=== PATIENT | female | born 1970 | race Caucasian/White ===

== ENCOUNTER 2020-08-07 15:03 | Outpatient (REF) | payer SELFPAY | END 2020-08-07 15:04 | disposition home or self-care (01) | LOC: HO.LNP 15:03 | PROVIDERS: Visit Provider Otolaryngology | DX: B37.9 Candidiasis, unspecified (principal) | CPT/HCPCS: 87071; 87102; 87205 ==

== ENCOUNTER 2024-01-30 09:18 | Outpatient (AMB) | payer BC, SELFPAY ==
--- NOTE | 2024-01-30 09:19 | AM.OFFWIN_ITS ---
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 sinus congestion Intake Note: Pt is here today c/o ear, throat pain and sinus congestion [id number] Patient Tobacco Use Status: Current everyday Tobacco user Allergies acetaminophen [From Hycomine Compound] Adverse Reaction (Verified 01/30/24 09:29) Rash acyclovir Adverse Reaction (Verified 01/30/24 09:29) blister chlorpheniramine [From Hycomine Compound] Adverse Reaction (Verified 01/30/24 09:29) Rash erythromycin base [From Ilosone] Adverse Reaction (Verified 01/30/24 09:29) rash hydrocodone [From Hycomine Compound] Adverse Reaction (Verified 01/30/24 09:29) Rash Penicillins Adverse Reaction (Verified 01/30/24 09:29) rash phenylephrine [From Hycomine Compound] Adverse Reaction (Verified 01/30/24 09:29) Rash promethazine [From Phenergan] Adverse Reaction (Verified 01/30/24 09:29) rash mysteclin Adverse Reaction (Uncoded 01/30/24 09:28) rash Medication List - Last Reconciled 01/30/24 by MARLYS Aguilar- celecoxib 200 mg PO DAILY HPI HPI Comments History of Present Illness Details Here today with complaints sinus congestion, ear pain, sore throat and mild shortness of breath that started 10 days ago while she was on [place] [employer] cruise. Reports that she had mild symptoms prior that she was using gwto-dkv-fmcijar medications that she bought in [place] to treat. Then her symptoms worsened. She did an at-home COVID test and this was negative. Current active tobacco user. PFSH Social History Patient Tobacco Use Status: Current everyday Tobacco user Review of Systems Const All systems reviewed & are unremarkable except as noted in HPI and below Physical Exam Vital Signs: Last Vital Signs Temp 98.7 F 01/30/24 09:22 Pulse 87 01/30/24 09:22 BP 136/90 H 01/30/24 09:22 Pulse Ox 96 01/30/24 09:22 Oxygen Delivery Method Room Air 01/30/24 09:22 BMI result Body Mass Index 37.9 Const Other: Awake alert NAD Sclera clear conjunctiva injected bilat with watery drainage TM intact, erythematous with purulent effusions bilat nares with mucoid discharge, turbinates erythematous and edematous, + maxillary and frontal sinus tenderness w/ palp MMM, pharynx WNL RRR LS CTAB Results AMB Rapid Strep AMB Rapid Strep Negative Last Edit by Marlene Combs CMA on 01/30/24 09:31 Assessment & Plan Assessment & Plan (1) Acute bacterial sinusitis: Code(s): J01.90 - Acute sinusitis, unspecified; B96.89 - Other specified bacterial agents as the cause of diseases classified elsewhere (2) Flu-like symptoms: Code(s): R68.89 - Other general symptoms and signs (3) Tobacco user: Comment: Smoking Cessation How to Quit There are a lot of ways to quit smoking and many resources to help you. Family members, friends, and co-workers may be supportive or encouraging, but to be successful the desire and commitment to quit must be your own. Most people who have been able to successfully quit smoking made at least one unsuccessful attempt in the past. Try not to view past attempts to quit as failures, but rather as learning experiences. Stopping smoking or using smokeless tobacco is difficult, but anyone can do it. Know the symptoms to expect when you stop. Common symptoms include: ? An intense craving for nicotine ? Anxiety, tension, restlessness, frustration, or impatience ? Difficulty concentrating ? Drowsiness or trouble sleeping, as well as bad dreams and nightmares ? Drowsiness and trouble sleeping ? Headaches ? Increased appetite and weight gain ? Irritability or depression How severe your symptoms are depends on how long you smoked and how many cigarettes you smoked each day. Feel ready to quit? ? First and foremost, set a quit date and quit completely on that day. Before your quit date, you may begin reducing your cigarette use. But remember, there is no safe level of cigarette smoking. ? List the reasons why you want to quit. Include both short- and long-term benefits. ? Identify the times you are most likely to smoke. For example, do you tend to smoke when feeling stressed or down? When out at night with friends? While drinking coffee or alcohol? When bored? While driving? Right after a meal or sex? During a work break? While watching TV or playing cards? When you are with other smokers? ? Let all of your friends, family, and co-workers know of your plan to stop smoking and your quit date. Just being aware that they know what you're going through can be helpful, especially when you are grumpy. ? Get rid of all your cigarettes just before the quit date, and clean out anything that smells like smoke, such as clothes and furniture. Make a plan about what you will do instead of smoking at those times when you are most likely to smoke. ? Be as specific as possible. For example, drink tea instead of coffee -- tea may not trigger the desire for a cigarette. Or, take a walk when you feel stressed. ? Remove ashtrays and cigarettes from the car. Place pretzels or hard candies there instead. Pretend-smoke with a straw. ? Find activities that focus your hands and mind but are not taxing or fattening. Computer games, solitaire, knitting, sewing, and crossword puzzles may help. ? If you normally smoke after eating, find other ways to end a meal. Play a tape or CD, eat a piece of fruit, get up and make a phone call, or take a walk (a good distraction that also stiles calories). Make other changes in your lifestyle. ? Change your daily schedule and habits. Eat at different times or eat several small meals instead of three large ones. Sit in a different chair or even a different room. ? Satisfy your oral habits by eating celery or other low-calorie snack, chewing sugarless gum, or sucking on a cinnamon stick. ? Go to public places and restaurants where smoking is prohibited or restricted. ? Eat regular meals and don't eat too much candy or sweet things. ? Get more exercise. Take walks or ride a bike. Exercise helps relieve the urge to smoke. Set short-term quitting goals and reward yourself when you meet them. ? Every day, put the money you normally spend on cigarettes in a jar. Then buy something pleasurable after a period of time. ? Try not to think about all the days ahead you will need to avoid smoking. Take it one day at a time. ? Even one puff or one cigarette will make your desire for more cigarettes even stronger. However, it is normal to make mistakes. So even if you have one cigarette, you don't need to take the next one. Other tips to help you quit smoking and stick to it: ? Enroll in a smoking cessation program (hospitals, health departments, community centers, and work sites often offer programs). Learn about self-hypnosis or other techniques. ? Ask your health care provider about prescription medications that are safe and appropriate for you. ? Find out about nicotine patches, gum, and sprays. The [place] [employer]'s web site -- www.cancer.org -- is an excellent resource for smokers who are trying to quit, and the [employer] [place] [employer] can help some smokers kick the habit. Above all, don't get discouraged if you aren't able to quit smoking the first ti me. Nicotine addiction is a hard habit to break. Try something different next time. Develop new strategies, and try again. Many people take several attempts to finally kick the habit. Code(s): Z72.0 - Tobacco use Plan Rapid strep negative in the office today. Viral swab obtained. I will treat her with antibiotics given her physical exam today. Reviewed with her her allergies. Reports that she thinks that she is taking cefpodoxime in the past without any ill effects. I have sent his with the pharmacy and educated her about the chance of cross sensitivity given her Augmentin allergy. This is not a life-threatening allergy it was noted as a rash only. Educated her to return to office if she has not feeling better after 48 hours of antibiotic therapy. Or she is feeling worse. She will only be called to her viral swab is positive otherwise the results will not be called to her. Orders: Orders AMB Rapid Strep Screen Today Z13.9 - Encounter for screening, unspecified SARS-CoV2/FLU/RSV Today R68.89 - Other general symptoms and signs Medications: New cefpodoxime must administer with a meal/food 200 mg PO BID 7 days 14 tabs 0RF Patient Instructions: What Is It? Sinuses are air-filled spaces behind the bones of the upper face: between the eyes and behind the forehead, nose and cheeks. The lining of the sinuses are made up of cells with tiny hairs on their surfaces called cilia. Other cells in the lining produce mucus. The mucus traps germs and pollutants and the cilia push the mucus out through narrow sinus openings into the nose. When the sinuses become inflamed or infected, the mucus thickens and clogs the openings to one or more sinuses. Fluid builds up inside the sinuses causing increased pressure. Also bacteria can become trapped, multiply and infect the lining. This is sinusitis. Prevention There are some measures you can take to decrease your risk of developing sinusitis. If you smoke cigarettes, you should quit. The smoke can irritate nasal passageways and increase the likelihood of infection. Nasal allergies can trigger sinus infections, too. By identifying the allergen (the substance causing the allergic reaction) and avoiding it, you can help prevent sinusitis. If you have congestion from a cold or allergies, the following may help to reduce the risk of developing sinusitis: Drink lots of water. This thins nasal secretions and keeps mucous membranes moist. Use steam to soothe nasal passages. Breathe deeply while standing in a hot shower, or inhale the vapor from a basin filled with hot water while holding a towel over your head. Avoid blowing your nose with great force, which can push bacteria into the sinuses. Some doctors advise periodic home nasal washings to clear secretions. This may help prevent, and also treat, sinus infections. Treatment Many sinus infections improve without treatment. However, several medications may speed recovery and reduce the chance that an infection will become chronic. Decongestants - Congestion often triggers sinus infections, and decongestants can open the sinuses and allow them to drain. Several are available: Pseudoephedrine (Sudafed) is available without prescription, alone or in combination with other medications in multi-symptom cold and sinus remedies. Pseudoephedrine can cause insomnia, racing pulse and jitteriness. Do not use if you have high blood pressure or a heart condition. Phenylephrine (such as S udafed PE) is an alternative auou-etb-drlabme oral decongestant. If you take products containing oral phenylephrine, check with the pharmacist to be certain there is no interaction with other medications you take. Oxymetazoline (AfOwen feltcher and others) and phenylephrine (Rishabh-Synephrine and others) are found in nasal sprays. They are effective and may be less likely to cause the side effects seen with pseudoephedrine. However, using a nasal decongestant for more than three days can cause worse symptoms when you stop the medication. This is called the rebound effect. Antihistamines - These medications help to relieve the symptoms of nasal allergies that lead to inflammation and infections. However, some doctors advise against using antihistamines during a sinus infection because they can cause excessive drying and slow the drainage process. Dtav-jcb-atymyft antihistamines include diphenhydramine (Benadryl and others), chlorpheniramine (Chlor-Trimeton and others) and loratadine (Claritin). Fexofenadine (S[place]) and cetrizine (Zyrtec) are available by prescription. Nasal steroids - Anti-inflammatory sprays such as mometasone (Nasonex) and fluticasone (Flonase), both available by prescription, reduce swelling of nasal membranes. Like antihistamines, nasal steroids can be most useful for those who have nasal allergies. Nasal steroids tend to produce less drying than antihistamines. Unlike nasal decongestants, nasal steroids can be used for prolonged periods. Saline nasal sprays - These salt-water sprays are safe to use and can provide some relief by adding moisture to the nasal passages, thinning mucus secretions and helping to flush out any bacteria that may be present. Pain relievers - Acetaminophen (Tylenol), ibuprofen (Advil, Motrin and others) or naproxen (Aleve) can be taken sinus pain. Antibiotics - Your doctor may prescribe an antibiotic if he or she suspects that a bacterial infection is causing your sinusitis. If you start taking an antibiotic, complete the entire course so that the infection is completely killed off. Not all cases of sinusitis require antibiotic treatment: Talk with your doctor about whether an antibiotic is right for you. Keep in mind that antibiotics can cause side effects, such as allergic reactions, rash and diarrhea. In addition, overusing antibiotics eventually leads to the spread of bacteria that no longer can be killed by the most commonly prescribed antibiotics. When To Call A Professional Contact a doctor if you experience facial pain along with a headache and fever, cold symptoms that last longer than seven to 10 days, or persistent green discharge from the nose. If your symptoms don't improve within a week of beginning treatment, call your doctor. Call sooner if symptoms are getting worse. If you have repeated bouts of acute sinusitis, you may have allergies or another treatable cause of sinus congestion. Ask your doctor for advice. Coding Level of Care Code Est Pt Level 4 (87737) Diagnoses Acute bacterial sinusitis J01.90; B96.89 Flu-like symptoms R68.89 Tobacco user Z72.0
[2024-01-30 09:22] VITALS: BP 136/90; PULSE 87; TEMP 37.1; O2SAT 96; BMI 37.9
== END 2024-01-30 10:00 | disposition home or self-care (01) ==
PROVIDERS: Visit Provider Nurse Practitioner Family
DX: J01.90 Acute sinusitis, unspecified (principal); B96.89 Other specified bacterial agents as the cause of diseases classified elsewhere; R68.89 Other general symptoms and signs; J02.9 Acute pharyngitis, unspecified; Z72.0 Tobacco use
CPT/HCPCS: 87880; 99214

== ENCOUNTER 2024-01-30 11:50 | Outpatient (REF) | payer BC, SELFPAY ==
[2024-01-30 13:06] LABS: Influenza A PCR NEGATIVE (Negative); Influenza B PCR NEGATIVE (Negative); Resp Syncy Virus RNA Qual PCR NEGATIVE (Negative); SARS COV2 PCR INHOUSE NEGATIVE (Negative)
== END 2024-01-30 11:51 | disposition home or self-care (01) ==
LOC: HO.LNP 11:50
PROVIDERS: Visit Provider Nurse Practitioner Family
DX: R68.89 Other general symptoms and signs (principal); Z13.9 Encounter for screening, unspecified; J06.9 Acute upper respiratory infection, unspecified
CPT/HCPCS: 0241U

== ENCOUNTER 2024-10-31 08:30 | Outpatient (REF) | payer BC, SELFPAY ==
[2024-10-31 14:34] LABS: Influenza A PCR NEGATIVE (Negative); Influenza B PCR NEGATIVE (Negative); Resp Syncy Virus RNA Qual PCR NEGATIVE (Negative); SARS COV2 PCR INHOUSE NEGATIVE (Negative)
== END 2024-10-31 08:31 | disposition home or self-care (01) ==
LOC: HO.LAB 08:30
PROVIDERS: Nurse Practitioner Family
DX: J02.9 Acute pharyngitis, unspecified (principal); R09.89 Other specified symptoms and signs involving the circulatory and respiratory systems
CPT/HCPCS: 0241U; 87880

== ENCOUNTER 2024-10-31 08:30 | Outpatient (AMB) | payer BC, SELFPAY ==
[2024-10-31 08:39] VITALS: BP 138/80; PULSE 82; TEMP 37; O2SAT 97; BMI 39.8
--- NOTE | 2024-10-31 08:39 | AM.OFFWIN_ITS ---
Intake Vital Signs 10/31/24 08:39 Height 5 ft 5 in Weight 239 lb BMI 39.8 BP 138/80 Blood Pressure Location Lt brachial Position Sitting Pulse 82 Pulse Source Pulse Oximeter Temp 98.6 F Temp Source Oral Pulse Oximetry (%) 97 Oxygen Delivery Method Room Air Intake Visit Reasons: EP-?strep Intake Note: pt is here for possible strep Patient Tobacco Use Status: Current everyday Tobacco user Allergies acetaminophen [From Hycomine Compound] Adverse Reaction (Verified 10/31/24 08:39) Rash acyclovir Adverse Reaction (Verified 10/31/24 08:39) blister chlorpheniramine [From Hycomine Compound] Adverse Reaction (Verified 10/31/24 08:39) Rash erythromycin base [From Ilosone] Adverse Reaction (Verified 10/31/24 08:39) rash hydrocodone [From Hycomine Compound] Adverse Reaction (Verified 10/31/24 08:39) Rash Penicillins Adverse Reaction (Verified 10/31/24 08:39) rash phenylephrine [From Hycomine Compound] Adverse Reaction (Verified 10/31/24 08:39) Rash promethazine [From Phenergan] Adverse Reaction (Verified 10/31/24 08:39) rash mysteclin Adverse Reaction (Uncoded 01/30/24 09:28) rash Do you need a note to return to daycare/school/sports/work: No HPI HPI Comments History of Present Illness Details 53 y/o female patient who presents to [facility] in clinic with c/o Pharyngitis. PFSH Social History Patient Tobacco Use Status: Current everyday Tobacco user Physical Exam Vital Signs: Last Vital Signs Temp 98.6 F 10/31/24 08:39 Pulse 82 10/31/24 08:39 BP 138/80 10/31/24 08:39 Pulse Ox 97 10/31/24 08:39 Oxygen Delivery Method Room Air 10/31/24 08:39 BMI result Body Mass Index 39.8 Const General: cooperative and no acute distress Orientation/consciousness: patient oriented x3 HEENT Head: Yes normocephalic Ears: external ears normal and TM abnormal bulging and with fluid behind the TM bilateral; not perforated and not retracted General nose exam: Abnormal mucous membranes and turbinates present erythematous Face and sinus: Yes sinuses nontender Mouth: moist mucous membranes Throat: Yes postnasal drainage Resp Effort & Inspection: normal respiratory effort and able to speak in complete sentences Auscultation: clear to auscultation bilaterally, no crackles, no rales, no rhonchi and no wheezes Cardio Heart sounds: S1 normal heart sound present and S2 normal heart sound present Neuro General: patient oriented x3 Results AMB Rapid Strep AMB Rapid Strep Negative Last Edit by Ponce Patterson CMA on 10/31/24 08 :52 Results Reviewed Results Reviewed: Laboratory Last Values Strep Scn Rapid Clinic Negative 10/31/24 08:52 Assessment & Plan Assessment & Plan (1) Acute pharyngitis: Code(s): J02.9 - Acute pharyngitis, unspecified Qualifiers: Pharyngitis/tonsillitis etiology: unspecified etiology Qualified Code(s): J02.9 - Acute pharyngitis, unspecified Plan: Rapid Strep negative. Ordered SARs OTC cold remedies. Plan Rapid Strep negative. Ordered SARs Orders: Orders SARS-CoV2/FLU/RSV Today R09.89 - Other specified symptoms and signs involving the circulatory and respiratory systems AMB Rapid Strep Screen Today Z13.9 - Encounter for screening, unspecified Coding Level of Care Code Est Pt Level 3 (08827) Diagnoses Acute pharyngitis, unspecified etiology J02.9 Pharyngitis/tonsillitis etiology: unspecified etiology Time Spent (min) 15
--- OUTSIDE RECORDS SUMMARY | 2024-10-31 12:44 | XMS_ITS | Clinical Summary ---
Author Organization [facility] Address [address] [place] [id number] Phone [email or web address] Care Team Providers Care Invasive Physician Name Role Phone Unavailable Primary Care Provider Unavailabl e Medications No known medications Active Problems No known active problems Social History Tobacco Use Types Packs/Day Years Used Date Smoking Tobacco: Former Cigarettes Q uit: 06/17/2021 Smokeless Tobacco: Never Intimate Partner Violence Answer Date R ecorded Insults You Not on file 01/17/2021 Threatens You Not on file 01/17/2021 Screams at You Not on file 01/17/2021 Physically Hurt Not on file 01/17/2021 Intimate Partner Violence Score Not on file 01/17/2021 Stress Answer Date Recorded Stress in your Life Not on file 08/09/2024 Dealing with Stress 3 08/09/2024 Comments Unknown Sex and Gender Information Value Date Recorded Sex Assigned at Female 07/01/2021 1:48 PM CDT 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 Gender Identity Female 07/01/2021 1:48 PM CDT Sexual Orientation Not on file Plan of Treatment Health Maintenance Due Date Last Done Comments Dental Cleaning/Exam 1971 HIV Screening 1971 Hepatitis C Screening 1971 Cervical Cancer Screening 1987 Hep B Infection Screening - Triple Screen 12/30/1989 Hepatitis B Immunization (1 of 3 - 19+ 3-dose series) 12/30/1990 Colorectal Cancer Screening 12/30/2001 Annual Preventive Exam 10/11/2015 10/11/2014, 2007 Tetanus Diphtheria and Pertussis Immunization (2 - Td or Tdap) 05/18/2017 05/18/2007 Zoster Immunization (1 of 2) 12/30/2021 Breast Cancer Screening 05/07/2023 05/07/2021 Covid-19 Immunization ( season) 2024 12/28/2020 Influenza Immunization (#1) 06/05/202407/05, 07/01/2015, 07/16/2014, Additional history exists HIB Immunization Aged Out No longer e ligible based on patient's age to complete this topic HPV Immunization Aged Out No longer e ligible based on patient's age to complete this topic Hepatitis A Immunization Aged Out No longer eligible based on patient's age to complete this topic Pneumococcal: Ped (0 to 5 Yrs) and At-Risk Member (6 to 64 Yrs) Aged Out No longer eligible based on patient's age to complete this topic Polio Immunization Aged Out No longer eligible based on patient's age to complete this topic
--- OUTSIDE RECORDS SUMMARY | 2024-10-31 12:44 | XMS_ITS | Clinical Summary ---
Author Organization [facility] Address [address] [place] [address] Phone Care Team Providers Care Computer Support Analyst Name Role Phone Jimi Newell MD Primary Care Provider [phone] Allergies Active Allergy Reactions Criticality Noted Date Comments Acyclovir 06/11/2012 Other Reaction(s): OTHER Iv caused blisters on hand When switched to other hand, pt was fine Ampicillin 01/15/2006 Other Reaction(s): Rash/Dermatitis Codeine 01/15/2006 Erythromycin Estolate 01/15/2006 Promethazine Hcl 01/15/2006 Medications Medication Sig Dispensed Refills Start Date End Date Status acetaminophen (TYLENOL) 500 mg tablet 1 Tab 2 times daily. 01/29/2012 Acti ve CELECOXIB ORAL Take by mouth daily. Active ketoconazole (NIZORAL) 2 % cream Apply to area bid 08/12/2021 Active levonorgestreL (MIRENA) 21 mcg/24 hr (8 yrs) 52 mg IUD 1 Each by Intrauterine route Once. 01/21/2022 12/26/2026 Active omeprazole (PriLOSEC) [address] capsule Take 1 Capsule by mouth daily Active aspirin-acetaminop hen-caffeine (EXCEDRIN MIGRAINE) 250-250-65 mg per tablet Take 1 Tablet by mouth every 6 hours as needed for Pain Active Active Problems Problem Noted Date Diagnosed Date Abnormal uterine bleeding (AUB) 01/19/2022 Overview (07/05/2024): Last Assessment & Plan: She will return for Mirena IUD [id number] 04/12/2013 Osteoarthritis of hip 01/29/2012 Overview (07/05/2024): L>R Pilonidal cyst 03/28/2008 Allergic rhinitis 02/06/2006 Encounters Date Type Department Care Team Description 09/08/2024 Telephone Gastroenterology - [place] [address] [address] Ramiro Nunez DO special procedure 08/25/2024 2:30 PM EST Nutrition Internal Medicine - [place] 175 [facility] [address] [place] [address] Lorena Noble, CARI Obesity (BMI 30-39.9) (Primary Dx) 08/15/2024 Telephone Adult Medicine [address] [phone] Jimi Newell MD from Last 3 Months Immunizations Name Administration Dates Next Due H1N1 Inj Preservative Free 09/15/2009 Influenza Quadravalent, MDCK , 0.5ml, with preservative (Flucelvax) 6mo and older 07/25/2018,07/26/2017 Influenza trivalent, with preservative (Fluzone; Afluria) 6mo and older 07/20/2016,07/01/2015,07/16/2014,2012,07/07/2012,07/18/2011,07/20/2010,1 ,06/27/2008 Moderna (age 6mo & older) Bi valent, COVID-19, 0.5 mL or 0.25 mL dosage 07/03/2023 Moderna SARS-CoV-2 COVID-19, mRNA, LNP-S, preservative free 06/26/2022,08/07/2021,01/25/2021,2020 Tdap Tetanus diptheria acell ular pertussis (Boostrix; Adacel) 7yo and older 05/12/2024,05/18/2007 Surgical History Surgery Date Site/Laterality Comments KNEE SURGERY PROCEDURE: HISTORICAL KNEE SURGERY; COMMENT: left knee x3 -arthroscopic and tendon shortening WISDOM TOOTH EXTRACTION PROCEDURE: HISTORICAL WISDOM TEETH EXTRACTION; COMMENT: 18 years HIP ARTHROPLASTY Left PROCEDURE: HISTORICAL HIP REPLACEMENT Medical History Medical History Date Comments Allergic rhinitis, cause unspecified 02/06/2006 DX:Allergic rhinitis, cause unspecified Bursitis of hip DX:Bursitis of h ip; COMMENT: bilateral x years Tendon laceration DX:Tendon lace ration; COMMENT: R 2nd - required surgeries [id number] 04/12/2013 DX:Pobhkux-ss-ir o Family History Medical History Relation Name Comments Breast cancer Aunt dar callahan in 80s Arthritis Maternal Grandmother Arthritis Mother fibromyalgia Kidney cancer Mother Colon cancer Neg Hx Ovarian cancer Neg Hx Pancreatic cancer Neg Hx Relation Name Status Comments Aunt dar callahan in 80s Alive Daughter Alive A&W Father Alive estranged Maternal Grandfather AMI; CA D Maternal Grandmother AMI; CA D; arthritis Mother Alive HTN, thyroid di sease, arthritis Paternal Grandfather estrang ed Paternal Grandmother estrang ed Social History Tobacco Use Types Packs/Day Years Used Date Smoking Tobacco: Some Days Cigarettes Last attempted to quit: 06/05/2021 Smokeless Tobacco: Never Alcohol Use Standard Drinks/Week Comments Yes 0 (1 standard drink = 0.6 oz pur e alcohol) Sex and Gender Information Value Date Recorded Sex Assigned at Not on file Gender Identity Not on file Sexual Orientation Not on file Job Start Date Occupation Industry Not on file Not on file Not on file Obstetrics History Last Filed Vital Signs Vital Sign Reading Time Taken Comments Blood Pressure 110/78 05/12/2024 8:42 AM EDT Pulse 99 05/12/2024 8:42 AM EDT Temperature - - Respiratory Rate - - Oxygen Saturation - - Inhaled Oxygen Concentration - - Weight 103 kg (226 lb) 08/25/2024 2:25 PM EST Height 165.1 cm (5' 5 ) 08/25/2024 2:25 PM EST Body Mass Index 37.61 08/25/2024 2:25 PM EST Plan of Treatment Upcoming Encounters Date Type Department Care Team (Late st Contact Info) Description 11/18/2024 8:30 AM EST Office Visit Adult Medicine [address] [phone] Jimi Newell MD [address] [place] [address] 12/23/2024 4:00 PM EDT Appointment [facility] Endoscopy [address] [place] [phone] Ramiro Nunez DO 175 [facility] 200 [place] [address] 02/23/2025 2:30 PM EDT Office Visit Bariatric Surgery - [place] [address] [phone] Nikky Duarte MD [address] [address] 05/16/2025 8:30 AM EDT Office Visit Adult Medicine South - [address] [phone] Munira Moyer PA [address] [place] [address] 06/01/2025 7:40 AM EDT Appointment Radiology Department - [address] [phone] Health Maintenance Due Date Last Done Comments Pneumococcal Vaccine: Pediatrics (0 to 5 Years) and At-Risk Patients (6 to 64 Years) (1 of 2 - PCV) 12/30/1977 Hepatitis B Vaccines (1 of 3 - 19+ 3-dose series) 12/30/1990 Colorectal Cancer Screening: Colonoscopy 09/13/2022 Depression Screening 09/13/2022 HIV Screening 09/13/2022 Hepatitis C Screening 09/13/2022 Social Influencers of Health Screening 09/13/2022 Zoster Vaccines (2 of 2) 09/13/2024 07/19/2024 Breast Cancer Screening 05/20/2026 05/20/20 24, 05/20/2024, 05/15/2023, Additional history exists Cervical Cancer Screening: HPV 01/13/2027 01/13/2022 Cholesterol Screening (Lipid Panel) 05/12/2029 05/12/2024, 05/12/2024 DTaP,Tdap,and Td Vaccines (4 - Td or Tdap) 05/12/2034 05/12/2024, 04/19/2022, 05/18/2007 COVID-19 Vaccine Completed 07/19/2024, , 06/26/2022, Additional history exists Influenza Vaccine Completed 07/19/2024, , 06/26/2022, Additional history exists HIB Vaccines Aged Out No longer eligi ble based on patient's age to complete this topic HPV Vaccines Aged Out No longer eligi ble based on patient's age to complete this topic Hepatitis A Vaccines Aged Out No long er eligible based on patient's age to complete this topic IPV Vaccines Aged Out No longer eligi ble based on patient's age to complete this topic MMR Vaccines Aged Out No longer eligi ble based on patient's age to complete this topic Meningococcal ACWY Vaccine Aged Out N o longer eligible based on patient's age to complete this topic RSV Immunization Patients Under 20 months Aged Out No longer eligible based on patient's age to complete this topic Varicella Vaccines Aged Out No longer eligible based on patient's age to complete this topic Procedures Procedure Name Priority Date/Time Associated Diagnosis Comments SCREENING MAMMOGRAPHY BI 2-VIEW BREAST INC CAD Routine 05/20/2024 7:40 AM EDT Encounter for screening mammogram for malignant neoplasm of breast LIPID PANEL Routine 05/12/2024 HM HPV Routine 01/13/2022 from Last 3 Months or Most Recently Relevant to Health Maintenance Results * SCREENING MAMMOGRAPHY BI 2-VIEW BREAST INC CAD (05/20/2024 7:40 AM EDT) Anatomical Region Laterality Modality Radiographic Heike ging 05/15/2023 7:32 AM EDT Narrative 05/20/2024 5:24 PM EDT This is a summary report. The complete report is available in the patient's medical record. If you cannot access the medical record, please contact the sending organization for a detailed fax or copy. Exam: Screening mammogram Findings: Digital bilateral full-field screening mammography is performed with tomosynthesis and interpreted with the aid of computer-aided detection. ??Comparison is made with 05/15/2023 and as far back as 04/30/2020. Breast parenchyma is composed of scattered fibroglandular densities. ??No new suspicious mass, architectural distortion, or suspicious calcifications. Impression: No mammographic evidence of malignancy. BI-RADS 1 - negative Procedure Note Izzy Weber MD - 08/29/2024 This is a summary report. The complete report is available in thepatient's medical record. If you cannot access the medical record, pleasecontact the sending organization for a detailed fax or copy. Exam: Screening mammogram Findings: Digital bilateral full-field screening mammography is performedwith tomosynthesis and interpreted with the aid of computer-aideddetection. Comparison is made with 05/15/2023 and as far back as04/30/2020. Breast parenchyma is composed of scattered fibroglandular densities. Nonew suspicious mass, architectural distortion, or suspiciouscalcifications. Impression: No mammographic evidence of malignancy. BI-RADS 1 - negative Jimi Newell MD IMG XR PROCEDURES * (ABNORMAL) Lipid panel (05/12/2024) LDL/HDL Ratio 3 0 - 4 Triglycerides 120 0 - 150 mg/dL Cholesterol 196 0 - 200 mg/dL HDL 57 40 mg/dL LDL Cholesterol 115(A) 0 - 100 mg/dL Blood Venous blood specimen / Unknown Historical Provider LAB BLOOD ORDERAB LES * Cervical Cancer Screening: HPV (01/13/2022) Pathologist [facility] Cervical Cancer Screening: HPV negative, abstracted Historical Provider HEALTH MAINTENANC E from Last 3 Months or Most Recently Relevant to Health Maintenance Care Teams Computer Support Analyst Relationship Specialty Start Date End Date Jimi Newell MD [address] [place] [address] [place] [id number] PCP - General Internal Medicine 03/26/21
--- OUTSIDE RECORDS SUMMARY | 2024-10-31 12:44 | XMS_ITS | Patient Health Record ---
[facility] Address [address] [place] [address] Care Team Providers Care Propagator Laborer Name Role Phone Reece PIZANO, Nate Primary Care Provider Diane Amor Unavailable [phone] Allergies Allergen (clinical drug ingredient) Drug/Non Drug Allergy documented on EMR Reaction Allergy Type Onset Date Status ibuprofen Advil stomach pain Drug Allergy Acti ve Aleve stomach pain Drug Allergy Acti ve Motrin stomach pain Drug Allergy Acti ve promethazine Phenergan rash/blisters Drug Allergy Active acyclovir Acyclovir rash/blisters Drug Allergy Act pk amphotericin B Amphotericin B rash/blisters Drug Allergy Active erythromycin Erythromycin rash/blisters Drug Allergy Active hydrocodone Hydrocodone rash/blisters Drug Allergy Active Penicillin rash Drug Allergy Active Reason For Referral No Information Medications Medication SIG (Take, Route, Fr equency, Duration) Notes Start Date End Date Status Celecoxib 200 MG 1 capsule with food Orally Once a day for 30 day(s) Active Immunizations Vaccine Route Administration Date Status Comme nts COVID-19 Moderna Vaccine Unknown 12/28/2020 Administered Second Dose: 01/25/2021 Social History Tobacco Use: Social History Observation Description Date Details (start date - stop date) Current Smoker NA - NA Tobacco Use/Smoking Question Answer Notes Are you a: current smoker How often do you smoke cigarettes? some days, bu t not every day How many cigarettes a day do you smoke? 5 or les s Additional Findings: Tobacco Non-User Current no n-smoker Alcohol Screen Question Answer Notes Did you have a drink contain ing alcohol in the past year? Yes How often did you have a dri nk containing alcohol in the past year? 2 to 3 times a week (3 points) Points 3 Interpretation Positive Tobacco use other than smoking: Question Answer Notes Are you an other tobacco user? No Problems Problem Type SNOMED Code ICD Code Onset Dates Problem Status W/U Status Risk Notes Problem [id number] Hallux valgus (acquired), right foot (M20.11) Active confirmed Plan Of Treatment Pending Test Test Name Order Date ,[id number] TENDON SHEATH/LIGAMENT 0 02/12/2021,[id number] TENDON SHEATH/LIGAMENT 0 06/12/2021 Insurance Providers Payer Name Payer Address Payer Phone Subscriber Number Group Number Insured Name Patient Relationship to Insured Coverage Start Date Coverage End Date [facility] [address] [place] [address] [id number] Kusum Mckeon Self - patient is the insured Medical (General) History Medical History History ICD Code Arthritis Back,Hip,and Knee pain Broken bones Chicken pox Joint/ Bone implants/screws Surgical History Surgery Date(Month/Year) Hip Replacement 2011 Knee surgery 1986,1987,1988 [place] teeth extraction 1986 Severed tendon repair-right index finger 2008 Anal Fistula Surgery 2014 [place] 2011
== END 2024-10-31 09:30 | disposition home or self-care (01) ==
PROVIDERS: Visit Provider Nurse Practitioner Family
DX: J02.9 Acute pharyngitis, unspecified (principal); Z13.9 Encounter for screening, unspecified

== ENCOUNTER 2024-11-04 08:17 | Outpatient (AMB) | payer BC, SELFPAY ==
--- OUTSIDE RECORDS SUMMARY | 2024-11-04 08:22 | XMS_ITS | Clinical Summary ---
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
--- OUTSIDE RECORDS SUMMARY | 2024-11-04 08:23 | XMS_ITS | Clinical Summary ---
Author Organization [facility] Address [address] [place] [address] Phone Care Team Providers Care Manager Clinical Name Role Phone Jimi Newell MD Primary Care Provider [phone] Allergies Active Allergy Reactions Criticality Noted Date [...] Plan: She will return for Mirena IUD Bmjisrp-vo-deg 04/12/2013 Osteoarthritis of hip 01/29/2012 Overview (07/05/2024): L>R Pilonidal cyst 03/28/2008 Allergic rhinitis 02/06/2006 Encounters Date Type Department Care Team Description 09/08/2024 Telephone Gastroenterology - [place] [address] [phone] Ramiro Nunez DO special procedure 08/25/2024 2:30 PM EST Nutrition Internal Medicine - [place] 175 [facility] [address] [place] [address] Lorena Noble, CARI Obesity (BMI 30-39.9) (Primary Dx) 08/15/2024 Telephone Adult Medicine [address] [phone] Jimi Newell MD from Last 3 Months [...] ration; COMMENT: R 2nd - required surgeries Uoobpvk-aq-ofv 04/12/2013 DX:Umgxvhk-tk-nb o Family History Medical History Relation Name [...] 8:30 AM EST Office Visit Adult Medicine [address] [phone] Jimi Newell MD [address] [place] [address] 12/23/2024 4:00 PM EDT Appointment [facility] Endoscopy [address] [place] [phone] Ramiro Nunez DO 175 [facility] [address] [place] [address] 02/23/2025 2:30 PM EDT Office Visit Bariatric Surgery - [place] [address] [phone] Nikyk Duarte MD [address] [address] 05/16/2025 8:30 AM EDT Office Visit Adult Medicine South - [address] [phone] Munira Moyer PA [address] [place] [address] 06/01/2025 7:40 AM EDT Appointment Radiology Department - [address] [phone] Health Maintenance Due Date Last Done Comments [...] * Cervical Cancer Screening: HPV (01/13/2022) Pathologist [facility] Cervical Cancer Screening: HPV negative, abstracted Historical Provider HEALTH MAINTENANC E from Last 3 Months or Most Recently Relevant to Health Maintenance Care Teams Manager Clinical Relationship Specialty Start Date End Date Jimi Newell MD [address] [place] [address] [place] [id number] PCP - General Internal Medicine 03/26/21
[2024-11-04 08:49] VITALS: BP 130/82; PULSE 92; TEMP 36.8; O2SAT 97; BMI 39.8
--- NOTE | 2024-11-04 08:49 | AM.OFFWIN_ITS ---
Intake Vital Signs 11/04/24 08:49 Height 5 ft 5 in Weight 239 lb BMI 39.8 BP 130/82 Blood Pressure Location Lt brachial Position Sitting Pulse 92 Pulse Source Pulse Oximeter Temp 98.2 F Temp Source Oral Pulse Oximetry (%) 97 Intake Visit Reasons: EP severe sinus congestion Intake Note: pt is here for severe sinus congestion Patient Tobacco Use Status: Current everyday Tobacco user Allergies acetaminophen [From Hycomine Compound] Adverse Reaction (Verified 11/04/24 08:49) Rash acyclovir Adverse Reaction (Verified 11/04/24 08:49) blister chlorpheniramine [From Hycomine Compound] Adverse Reaction (Verified 11/04/24 08:49) Rash erythromycin base [From Ilosone] Adverse Reaction (Verified 11/04/24 08:49) rash hydrocodone [From Hycomine Compound] Adverse Reaction (Verified 11/04/24 08:49) Rash Penicillins Adverse Reaction (Verified 11/04/24 08:49) rash phenylephrine [From Hycomine Compound] Adverse Reaction (Verified 11/04/24 08:49) Rash promethazine [From Phenergan] Adverse Reaction (Verified 11/04/24 08:49) rash mysteclin Adverse Reaction (Uncoded 01/30/24 09:28) rash Do you need a note to return to daycare/school/sports/work: Yes HPI HPI Comments History of Present Illness Details 53 y/o female patient who presents to [facility] clinic with worsening symptoms of Sinus and chest congestion, cough and body aches. She was seen here at the walk in clinic 10/31 for similar symptoms. SARs was negative. [facility] Medical History (Updated 11/04/24 @ 09:12 by Margarita Howard NP) Sinusitis nasal Social History Patient Tobacco Use Status: Current everyday Tobacco user Review of Systems Const All systems reviewed & are unremarkable except as noted in HPI and below Physical Exam Vital Signs: Last Vital Signs Temp 98.2 F 11/04/24 08:49 Pulse 92 11/04/24 08:49 BP 130/82 11/04/24 08:49 Pulse Ox 97 11/04/24 08:49 BMI result Body Mass Index 39.8 Const General: cooperative and no acute distress Nutritional Appearance: obese Orientation/consciousness: patient oriented x3 HEENT Head: Yes normocephalic Ears: external ears normal and TM abnormal bulging bilateral and with fluid behind the TM bilateral General nose exam: Abnormal mucous membranes and turbinates present boggy and Nasal discharge present Face and sinus: Yes sinus tenderness Mouth: moist mucous membranes Resp Effort & Inspection: normal respiratory effort and able to speak in complete sentences Auscultation: clear to auscultation bilaterally, no crackles, no rales, no rhonchi and wheezes expiratory wheezes Cardio Heart sounds: S1 normal heart sound present and S2 normal heart sound present Neuro General: patient oriented x3 Assessment & Plan Assessment & Plan (1) Sinusitis nasal: Code(s): J32.9 - Chronic sinusitis, unspecified Qualifiers: Chronicity: acute Recurrence: not specified as recurrent Sinusitis location: maxillary Qualified Code(s): J01.00 - Acute maxillary sinusitis, unspecified Plan: Ordered Doxcy Abx Pt has multiple Allergies to Abx. Medications: New dextromethorphan polistirex ER (Delsym 12 hour) 10 mL PO Q12H 89 mL 0RF cough J06.9 - Acute upper respiratory infection, unspecified doxycycline hyclate 100 mg PO BID 10 days 20 caps 0RF J01.00 - Acute maxillary sinusitis, unspecified Coding Level of Care Code Est Pt Level 3 (69963) Diagnoses Acute maxillary sinusitis, recurrence not specified J01.00 Chronicity: acute Recurrence: not specified as recurrent Sinusitis location: maxillary Time Spent (min) 15
== END 2024-11-04 09:33 | disposition home or self-care (01) ==
PROVIDERS: Visit Provider Nurse Practitioner Family
DX: J01.00 Acute maxillary sinusitis, unspecified (principal)

== ENCOUNTER 2025-03-22 12:19 | Outpatient (AMB) | payer BC, SELFPAY ==
[2025-03-22 12:28] VITALS: BP 110/74; PULSE 86; O2SAT 99; BMI 39.1
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
--- OUTSIDE RECORDS SUMMARY | 2025-03-22 14:11 | XMS_ITS | Clinical Summary ---
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 Gender Identity Female 07/01/2021 1:48 PM CDT Sexual Orientation Not on file Plan of Treatment Health Maintenance Due Date Last Done Comments Dental Cleaning/Exam 1971 HIV Screening 1971 Hepatitis C Screening 1971 Cervical Cancer Screening 1987 Annual Preventive Exam 12/30/1989 Hep B Infection Screening - Triple Screen 12/30/1989 Hepatitis B Immunization (1 of 3 - 19+ 3-dose series) 12/30/1990 Colorectal Cancer Screening 12/30/2001 Tetanus Diphtheria and Pertussis Immunization (2 - Td or Tdap) 05/18/2017 05/18/2007 Zoster Immunization (1 of 2) 12/30/2021 Breast Cancer Screening 05/07/2023 05/07/2021 Covid-19 Immunization ( season) 2024 12/28/2020 Influenza Immunization (Season Ended) 2025 07/20/2016, 07/01/2015, 07/16/2014, Additional history exists HIB Immunization [...]
== END 2025-03-22 13:16 | disposition home or self-care (01) ==
LOC: HO.HMCC 12:20
PROVIDERS: Visit Provider Nurse Practitioner Family
DX: I10 Essential (primary) hypertension (principal); Z72.0 Tobacco use; Z97.5 Presence of (intrauterine) contraceptive device; L98.9 Disorder of the skin and subcutaneous tissue, unspecified; M19.90 Unspecified osteoarthritis, unspecified site

== ENCOUNTER → 2025-03-22 12:19 | Outpatient (BNVA) | payer BC, SELFPAY | PROVIDERS: Visit Provider Nurse Practitioner Family | DX: I10 Essential (primary) hypertension (principal); L98.9 Disorder of the skin and subcutaneous tissue, unspecified; M19.90 Unspecified osteoarthritis, unspecified site; Z97.5 Presence of (intrauterine) contraceptive device; Z87.891 Personal history of nicotine dependence | CPT/HCPCS: 96127 ==

== ENCOUNTER 2025-05-26 10:54 | Outpatient (AMB) | payer BC, SELFPAY ==
--- NOTE | 2025-05-26 07:52 | A.OFFVIS_ITS ---
Intake Visit Reasons: Former Smoker Allergies acetaminophen (From Hycomine Compound) Adverse Reaction (Verified 03/22/25 12:3 0) Rash acyclovir Adverse Reaction (Verified 03/22/25 12:30) blister chlorpheniramine (From Hycomine Compound) Adverse Reaction (Verified 03/22/25 12:30) Rash erythromycin base (From Ilosone) Adverse Reaction (Verified 03/22/25 12:30) rash hydrocodone (From Hycomine Compound) Adverse Reaction (Verified 03/22/25 12:30) Rash Penicillins Adverse Reaction (Verified 03/22/25 12:30) rash phenylephrine (From Hycomine Compound) Adverse Reaction (Verified 03/22/25 12:30) Rash promethazine (From Phenergan) Adverse Reaction (Verified 03/22/25 12:30) rash mysteclin Adverse Reaction (Uncoded 01/30/24 09:28) rash HPI HPI Former Smoker: Details: Initial visit for this 54yo former smoker with a 25PYH. Patient started smoking at age 16 for 37 years at 1-1ppd. She quit 08/2024 . Denies marijuana use. 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 Denies known family history of lung cancer. Denies personal history of cancers. Denies chest CT in last year. . Denies recent travel outside the [place]. Denies recent respiratory illness or recent hospitalization for respiratory issues. History of testing positive for COVID. Admits receiving COVID Vaccine. . Denies fever, chills, new/worsening cough, hemoptysis, hoarseness or dysphagia. Denies significant chest pain, significant dyspnea or unintentional weight loss. Patient Lung Cancer Screening Questionnaire reviewed with patient by provider. . Shared Decision Making Completed. Patient meets criteria. Discussed in detail with patient, the risk vs benefit of LDCT screening. Patient consents to proceed with scan. Discussed and encouraged continued smoking cessation. [facility] Medical History (Updated 05/26/25 @ 11:11 by Priscilla Jorge PA-C) HTN (hypertension) CPAP (continuous positive airway pressure) dependence Personal history of nicotine dependence Presence of Mirena IUD Hemorrhoids Fistula, anal Meningitis Tooth abscess Pilonidal cyst Surgical History (Updated 04/10/25 @ 11:18 by Priscilla Jorge PA-C) History of left hip replacement Family History Mother High blood pressure Hyperthyroidism Fibromyalgia Kidney cancer, primary, with metastasis from kidney to other site Father No problems noted. 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 - Patient meets criteria for LDCT for lung cancer screening purposes and is asymptomatic. - Smoking cessation counseling offered. Patients can always call [phone]. - Will arrange for a LDCT scan of the chest for screening purposes at [facility]. - Risks, benefits, and alternatives were discussed in detail and the patient agrees to proceed. - Risks discussed include but are not limited to: radiation exposure, anxiety during testing and while awaiting results, false negatives, false positives and possibility of additional intervention such as further imaging or surgical procedures for benign disease. - Benefits are obviously detection of lung cancer at an early stage which can lead to improved outcomes. - Discussed the importance of screening program compliance with adherence to yearly LDCT scan as scheduled - or sooner interval scans for personalized screening regimen. - Discussed follow up plan. Our office will send a letter discussing results and if needed set up phone call and office visit based on CT findings. - Patient educated on results categorization and the management decisions for suspicious findings potentially found on the screening LDCT scan. Any patient with a Lung RADS score of 3 or 4 will be reviewed by a multidisciplinary team at [facility] to form a plan of action in regards to scan findings. - If further work up is warranted for a suspicious lung finding this will be followed by the Lung Cancer Screening program in conjunction with the Thoracic Surgery Department at [facility]. - A copy of the office note and LDCT will be sent to the patient's PCP - as well as documentation on any associated further plans of care. - Incidental findings on LDCT are the PCP's responsibility. These findings are indicated with an S finding on the LDCT Assessment. A note discussing the findings will be sent to the PCP who is then responsible for further management. - All questions answered.? Coding Level of Care Code Lung Cancer Screening G0296 Diagnoses Personal history of nicotine dependence Z87.891
--- OUTSIDE RECORDS SUMMARY | 2025-05-26 10:59 | XMS_ITS ---
Author Name [facility] Organization Unknown Care Team Organization Name Specialty Phone Email Start Date End [facility] te [facility] TARAH LATIF Primary Care 08/12/2022 4
--- OUTSIDE RECORDS SUMMARY | 2025-05-26 10:59 | XMS_ITS | Clinical Summary ---
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 Gender Identity Female 07/01/2021 1:48 PM CDT Sexual Orientation Not on file Plan of Treatment Health Maintenance Due Date Last Done Comments CT Colonography 1971 Cervical Cancer Screening Combo 1971 Colonoscopy 1971 Colorectal Cancer Screening Combo 1971 DNA Cologuard 1971 Dental Cleaning/Exam 1971 FIT or FOBT Test 1971 HIV Screening 1971 HPV / Cotest 1971 Hepatitis C Screening 1971 Pap Testing 1971 Sigmoidoscopy 1971 Annual Preventive Exam 12/30/1989 Hep B Infection Screening - Triple Screen 12/30/1989 Hepatitis B Immunization (1 of 3 - 19+ 3-dose series) 12/30/1990 Tetanus Diphtheria and Pertussis Immunization (2 - Td or Tdap) 05/18/2017 05/18/2007 Zoster Immunization (1 of 2) 12/30/2021 Breast Cancer Screening 05/07/2023 05/07/2021 Covid-19 Immunization (2 - season) 2024 12/28/2020 Influenza Immunization (#1) 06/05/202507/05, 07/01/2015, 07/16/2014, Additional history exists HIB Immunization [...]
--- OUTSIDE RECORDS SUMMARY | 2025-05-26 10:59 | XMS_ITS | Clinical Summary ---
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 Electrostatic Paint Operator Name Role Phone Jimi Newell MD Primary Care Provider [phone] Allergies Active Allergy Reactions Criticality Noted Date Comments Acyclovir Rash,Wound Medium 06/11/2012 Other Reaction(s): OTHER Iv caused blisters on hand When switched to other hand, pt was fine Amphotericin B Rash Low 12/15/2024 Other Reaction(s): rash/blisters Ampicillin Rash Medium 01/15/2006 Other Reaction(s): Rash/Dermatitis Erythromycin Estolate Rash Medium 01/15/2006 Ibuprofen GI intolerance Low 12/15/2024 Other Reaction(s): stomach pain Naproxen Sodium GI intolerance Low 12/15/2024 Other Reaction(s): stomach pain Promethazine Hcl 01/15/2006 Medications acetaminophen (TYLENOL) 500 mg tablet 1 Tab 2 times daily. 2 Active CELECOXIB ORAL Take by mouth daily. Active ketoconazole (NIZORAL) 2 % cream Apply to area bid 1 Active levonorgestreL (MIRENA) 21 mcg/24 hr (8 yrs) 52 mg IUD 1 Each by Intrauterine route Once. 2 027 Active aspirin-acetam inophen-caffei ne (EXCEDRIN MIGRAINE) 250-250-65 mg per tablet Take 1 Tablet by mouth every 6 hours as needed for Pain Active methylPREDNISo lone (MEDROL DOSPAK) 4 mg tablet TAKE 6 TABLETS ON DAY 1 DIRECTED ON PACKAGE AND DECREASE BY 1 TAB EACH DAY FOR A TOTAL OF 6 DAYS 5 Active omeprazole (PriLOSEC) [address] capsule Take 1 capsule (40 mg total) by mouth 1 (one) time each day. Do not crush or chew. 30 each 11 5 026 Active polyethylene glycol (Golytely) 236-22.74-6.74 -5.86 gram solution Take 4L by mouth once for one dose. May substitue any PEG. Starting at 6PM the night before your procedure drink 1 8oz glasses at your own pace until you complete half of the gallon. Finish 2nd half of the gallon 5 hours before your procedure. 4000 mL 5 Active bisacodyL (DULCOLAX) 5 mg EC tablet Take 2 tablets by mouth right before beginning bowel prep. See instructions provided by the office 2 tablet 5 Active amLODIPine (NORVASC) 5 mg tablet Take 1 tablet (5 mg total) by mouth 1 (one) time each day. 90 tablet 1 5 Active tirzepatide, weight loss, (Zepbound) 7.5 mg/0.5 mL injection Inject 0.5 mL (7.5 mg total) under the skin every 7 (seven) days. 2 mL 5 025 Active ondansetron (ZOFRAN) 4 mg tablet Take 1 tablet (4 mg total) by mouth every 8 (eight) hours if needed for nausea or vomiting for up to 7 days. 21 tablet 5 025 Active tirzepatide, weight loss, (Zepbound) 7.5 mg/0.5 mL injection Inject 0.5 mL (7.5 mg total) under the skin every 7 (seven) days. 2 mL 5 025 Discontin ued(Reord er) Active Problems Problem Noted Date Diagnosed Date Class 2 severe obesity with serious comorbidity and body mass index (BMI) of 37.0 to 37.9 in adult ([facility] V24, [facility] V28) 05/04/2025 Abnormal uterine bleeding (AUB) 01/19/2022 Overview (07/05/2024): Last Assessment & Plan: She will return for Mirena IUD Whilgii-bd-[id number] 04/12/2013 Osteoarthritis of hip 01/29/2012 Overview (07/05/2024): L>R Pilonidal cyst 03/28/2008 Allergic rhinitis 02/06/2006 Encounters Date Type Department Care Team Description 05/22/2025 Telephone Bariatric Surgery [address] [address] Nikky Duarte MD Advice Only (Zofran) 05/22/2025 [place] [facility] [address] [address] Nikky Duarte MD Med Refill (Zepbound 7.5 mg) 05/04/2025 8:00 AM EDT Nutrition Bariatric Surgery [address] [address] Radha Mon, CARI Class 2 severe obesity with serious comorbidity and body mass index (BMI) of 37.0 to 37.9 in adult, unspecified obesity type (CMS/HCC V24, CMS/HCC V28) (Primary Dx) 04/24/2025 Telephone Bariatric Surgery [address] [address] Nikky Duarte MD Med Refill (Zepbound w/titration ) 03/27/2025 Telephone Bariatric Surgery [address] [address] Nikky Duarte MD Med Refill (Zepbound w/titration ) 02/23/2025 2:30 PM EDT Consult Bariatric Surgery [address] [address] Nikky Duarte MD Class 3 severe obesity due to excess calories with serious comorbidity and body mass index (BMI) of 40.0 to 44.9 in adult (CMS/HCC V24, CMS/HCC V28) (Primary Dx); Morbid obesity (CMS/HCC V24, [facility] V28) from Last 3 Months Immunizations Name Administration [...] ration; COMMENT: R 2nd - required surgeries Flngcwo-sl-mvz 04/12/2013 DX:[id number]-it-xf o Snores GERD (gastroesophageal reflux disease) Arthritis Family History Medical History Relation Name Comments [...] arthritis Paternal Grandfather estrang ed Paternal Grandmother domingo ed Social History Tobacco Use Types Packs/Day Years Used Date Smoking Tobacco: Former Cigarettes Q uit: 06/05/2021 Smokeless Tobacco: Never Tobacco Cessation:Counseling Given: Not Answered Alcohol Use Standard Drinks/Week Comments Yes 3 (1 standard drink = 0.6 oz pur e alcohol) Interpersonal Safety Answer Date Record ed Physical Abuse 12/23/2024 Verbal Abuse 12/23/2024 Comments No Sex and Gender Information Value Date Recorded Sex Assigned at Female 12/22/2024 3:51 PM EDT Legal Sex Female 10:00 AM EST Gender Identity Female 12/22/2024 3:51 PM EDT Sexual Orientation Straight 12/22/2024 3: 52 PM EDT Obstetrics History Last Filed Vital Signs Vital Sign Reading Time Taken Comments Blood Pressure 143/83 02/23/2025 2:47 PM EDT Pulse 101 02/23/2025 2:47 PM EDT Temperature 36.6 C (97.8 F) 02/23/2025 2:47 PM EDT Respiratory Rate 17 02/20/2025 8:03 AM EDT Oxygen Saturation 97% 02/02/2025 8:22 PM EDT Inhaled Oxygen Concentration - - Weight 102 kg (224 lb) 05/04/2025 8:04 AM EDT Height 165.1 cm (5' 5 ) 02/23/2025 2:47 PM EDT Body Mass Index 37.28 02/23/2025 2:47 PM EDT Plan of Treatment Upcoming Encounters Date Type Department Care Team (Late st Contact Info) Description 06/01/2025 7:40 AM EDT Appointment Radiology Department [address] [address] 06/12/2025 9:00 AM EDT Office Visit Orthopedic Surgery - [place] [address] [facility] [address] [place] [phone] Litzy Cho PA 175 [facility] [address] [place] [address] 06/27/2025 1:30 PM EDT Office Visit Bariatric Surgery - [place] 175 [facility] [address] [place] [address] Nikky Duarte MD [address] [address] 08/07/2025 8:00 AM EST Nutrition Bariatric Surgery - [place] 175 [facility] [address] [place] [address] Radha Mon, RD [address] [address] Health Maintenance Due Date Last Done Comments Hepatitis B Vaccines (1 of 3 - 19+ 3-dose series) 12/30/1990 Pneumococcal Vaccine: 50+ Years (1 of 1 - PCV) 12/30/2021 HIV Screening 09/13/2022 Hepatitis C Screening 09/13/2022 Social Influencers of Health Screening 09/13/2022 Depression Screening 10/05/2024 Influenza Vaccine (#1) 2025 , 07/03/2023, 06/26/2022, Additional history exists Hypertension/CHF/CAD Annual BMP Blood Test 02/02/2026 02/02/2025, 05/12/2024, 05/12/2024 Breast Cancer Screening 05/20/2026 05/20/20 24, 05/20/2024, 05/15/2023, Additional history exists Cervical Cancer Screening: HPV 01/13/2027 01/13/2022 Colorectal Cancer Screening: Colonoscopy 12/24/2027 12/23/2024 Cholesterol Screening (Lipid Panel) 11/18/2029 11/18/2024, 05/12/2024, 05/12/2024 DTaP,Tdap,and Td Vaccines (4 - Td or Tdap) 05/12/2034 05/12/2024, 04/19/2022, 05/18/2007 COVID-19 Vaccine Completed 07/19/2024, , 06/26/2022, Additional history exists Zoster Vaccines Completed 12/13/2024, 07/19/2024 HIB Vaccines Aged Out No longer eligi [...] patient's age to complete this topic Meningococcal B Vaccine Aged Out No l onger eligible based on patient's age to complete this topic RSV Immunization Patients Under 20 months Aged Out No longer eligible based on patient's age to complete this topic Varicella Vaccines Aged Out No longer eligible based on patient's age to complete this topic Procedures Procedure Name Priority Date/Time Associated Diagnosis Comments BASIC METABOLIC PANEL STAT 02/02/2025 4:43 PM EDT COLONOSCOPY Routine 12/23/2024 2:44 PM EDT Colon cancer screening LIPID PANEL WITH REFLEX TO DIRECT LDL Routine 11/18/2024 9:17 AM EST High cholesterol SCREENING MAMMOGRAPHY BI 2-VIEW BREAST INC CAD Routine 05/20/2024 7:40 AM EDT Encounter for screening mammogram for malignant neoplasm of breast HM HPV Routine 01/13/2022 from Last 3 Months or Most Recently Relevant to Health Maintenance Results * Basic metabolic panel (02/02/2025 4:43 PM EDT) Sodium 138 133 - 145 mmol/L LAB CHEMISTRY METHOD 02/02/2025 5:25 PM EDT [facility] Potassium 4.5 3.5 - 5.5 mmol/L LAB CHEMISTRY METHOD 02/02/2025 5:25 PM EDT [facility] Chloride 106 96 - 110 mmol/L LAB CHEMISTRY METHOD 02/02/2025 5:25 PM EDT [facility] CO2 29 21 - 32 mmol/L LAB CHEMISTRY METHOD 02/02/2025 5:25 PM EDT [facility] Anion Gap 3 3 - 11 LAB CHEMISTRY METHOD 02/02/2025 5:25 PM EDT [facility] Glucose 87 70 - 100 mg/dL LAB CHEMISTRY METHOD 02/02/2025 5:25 PM EDT [facility] BUN 14 5 - 25 mg/dL LAB CHEMISTRY METHOD 02/02/2025 5:25 PM EDT [facility] Creatinine 0.78 0.50 - 1.10 mg/dL LAB CHEMISTRY METHOD 02/02/2025 5:25 PM EDT [facility] eGFR 91 >=60 mL/min/1. 73m2 LAB CHEMISTRY METHOD 02/02/2025 5:25 PM EDT [facility] Comment:Calculation based on the Chronic Kidney Disease Epidemiology Collaboration (CKD-EPI) equation refit without adjustment for race. BUN/Creatinine Ratio 17.9 LAB CHEMISTRY METHOD 02/02/2025 5:25 PM EDT [facility] Calcium 9.7 8.5 - 10.5 mg/dL LAB CHEMISTRY METHOD 02/02/2025 5:25 PM EDT [facility] Blood Venous blood specimen / Unknown Venipuncture / Unknown 02/02/2025 4:43 PM EDT 02/02/2025 4:51 PM EDT us Joseph Pham DO LAB BLOOD ORDERABLES Final Res ult [facility] [address] [place] [address], [place] [phone] * COLONOSCOPY Anesthesia - MAC; [facility] ENDOSCOPY (12/23/2024 2:44 PM EDT) Anatomical Region Laterality Modality Endoscopy 12/23/2024 2:22 PM EDT Impressions 12/23/2024 2:45 PM EDT - Hemorrhoids found on perianal exam. - One 3 mm polyp in the sigmoid colon, removed with a jumbo cold forceps. Resected and retrieved. - One 10 mm polyp in the transverse colon, removed with a cold snare. Resected and retrieved. - The examination was otherwise normal on direct and retroflexion views. Recommendation: - - Discharge patient to home. - High fiber diet. - Continue present medications. - Await pathology results. - Repeat colonoscopy for surveillance based on pathology results. Narrative 12/23/2024 2:45 PM EDT [facility] GI Patient Name: Kusum Chapman Procedure Date: 12/23/2024 2:22 PM Date of : 1970 Age: 53 Gender: Female Note Status: Finalized Attending MD: Rosa Nunez DO, [id number] Procedure Date No Time: 12/23/2024 Procedure: Colonoscopy Indications: Screening for colorectal malignant neoplasm Providers: Rosa Nunez DO Referring MD: Jimi Newell MD Medicines: Monitored Anesthesia Care Complications: No immediate complications. Estimated blood loss: Minimal. Estimated Blood Loss: Estimated blood loss was minimal. Procedure: Pre-Anesthesia Assessment: - - Prior to the procedure, a History and Physical was performed, and patient medications and allergies were reviewed. The patient is competent. The risks and benefits of the procedure and the sedation options and risks were discussed with the patient. All questions were answered and informed consent was obtained. Patient identification and proposed procedure were verified by the physician, the nurse, the anesthesiologist, the screener and blender operator and the alignment technician in the pre-procedure area in the endoscopy suite. Mental Status Examination: alert and oriented. Airway Examination: normal oropharyngeal airway and neck mobility. Respiratory Examination: clear to auscultation. CV Examination: normal. Prophylactic Antibiotics: The patient does not require prophylactic antibiotics. Prior Anticoagulants: The patient has taken no anticoagulant or antiplatelet agents. ASA Grade Assessment: II - A patient with severe systemic disease. After reviewing the risks and benefits, the patient was deemed in satisfactory condition to undergo the procedure. The anesthesia plan was to use monitored anesthesia care (MAC). Immediately prior to administration of medications, the patient was re-assessed for adequacy to receive sedatives. The heart rate, respiratory rate, oxygen saturations, blood pressure, adequacy of pulmonary ventilation, and response to care were monitored throughout the procedure. The physical status of the patient was re-assessed after the procedure. After I obtained informed consent, the scope was passed under direct vision. Throughout the procedure, the patient's blood pressure, pulse, and oxygen saturations were monitored continuously. The Olympus Pediatric Colonoscope was introduced through the anus and advanced to the cecum, identified by appendiceal orifice and ileocecal valve. The colonoscopy was performed without difficulty. The patient tolerated the procedure well. The quality of the bowel preparation was good. Findings: Hemorrhoids were found on perianal exam. A 3 mm polyp was found in the sigmoid colon. The polyp was sessile. The polyp was removed with a jumbo cold forceps. Resection and retrieval were complete. Estimated blood loss was minimal. A 10 mm polyp was found in the transverse colon. The polyp was sessile. The polyp was removed with a cold snare. Resection and retrieval were complete. Verification of patient identification for the specimen was done. Estimated blood loss was minimal. The exam was otherwise without abnormality on direct and retroflexion views. A few small-mouthed diverticula were found in the sigmoid colon and descending colon. There was no evidence of diverticular bleeding. Procedure Code(s): --- Professional --- 14560, Colonoscopy, flexible; with removal of tumor(s), polyp(s), or other lesion(s) by snare technique 64966, 59, Colonoscopy, flexible; with biopsy, single or multiple Diagnosis Code(s): --- Professional --- Z12.11, Encounter for screening for malignant neoplasm of colon K64.9, Unspecified hemorrhoids D12.5, Benign neoplasm of sigmoid colon D12.3, Benign neoplasm of transverse colon (hepatic flexure or splenic flexure) CPT copyright 2020 [employer]. All rights reserved. The codes documented in this report are preliminary and upon gas engine operator review may be revised to meet current compliance requirements. ROSA Nunez DO 12/23/2024 2:45:00 PM This report has been signed electronically.Rosa Nunez DO Number of Addenda: 0 Note Initiated On: 12/23/2024 2:22 PM Scope Withdrawal Time: 0 hours 7 minutes 44 seconds Scope In: 2:29:22 PM Scope Out: 2:42:51 PM Endoscopy Department at [facility] - [address] [place] [phone] Procedure Note Rosa Nunez DO - 03/21/2025 [facility] GI Patient Name: Kusum Chapman Procedure Date: 12/23/2024 2:22 PM Date of : 1970 Age: 53 Gender: Female Note Status: Finalized Attending MD: Rosa Nunez DO, [id number] Procedure Date No Time: 12/23/2024 Procedure: Colonoscopy Indications: Screening for colorectal malignant neoplasm Providers: Rosa Nunez DO Referring MD: Jimi Newell MD Medicines: Monitored Anesthesia Care Complications: No immediate complications. Estimated blood loss: Minimal. Estimated Blood Loss: Estimated blood loss was minimal. Procedure: Pre-Anesthesia Assessment: - - Prior to the procedure, a History and Physicalwas performed, and patient medications and allergieswere reviewed. The patient is competent. The risks and benefits of the procedure and the sedation optionsand risks were discussed with the patient. Allquestions were answered and informed consent was obtained. Patient identification and proposed procedure were verified by the physician, the nurse, the anesthesiologist, the screener and blender operator and thetechnician in the pre-procedure area in the endoscopy suite. Mental Status Examination: alert and oriented.Airway Examination: normal oropharyngeal airway and neck mobility. Respiratory Examination: clear to auscultation. CV Examination: normal. Prophylactic Antibiotics: The patient does not requireprophylactic antibiotics. Prior Anticoagulants: The patient has taken no anticoagulant or antiplatelet agents. ASA Grade Assessment: II - A patient with severesystemic disease. After reviewing the risks and benefits,the patient was deemed in satisfactory condition to undergo the procedure. The anesthesia plan was touse monitored anesthesia care (MAC). Immediately priorto administration of medications, the patient was re-assessed for adequacy to receive sedatives. The heart rate, respiratory rate, oxygen saturations, blood pressure, adequacy of pulmonary ventilation,and response to care were monitored throughout the procedure. The physical status of the patient was re-assessed after the procedure. After I obtained informed consent, the scope was passed under direct vision. Throughout theprocedure, the patient's blood pressure, pulse, and oxygen saturations were monitored continuously. TheOlympus Pediatric Colonoscope was introduced through theanus and advanced to the cecum, identified byappendiceal orifice and ileocecal valve. The colonoscopy was performed without difficulty. The patient tolerated the procedure well. The quality of the bowel preparation was good. Findings: Hemorrhoids were found on perianal exam. A 3 mm polyp was found in the sigmoid colon. Thepolyp was sessile. The polyp was removed with a jumbocold forceps. Resection and retrieval were complete. Estimated blood loss was minimal. A 10 mm polyp was found in the transverse colon.The polyp was sessile. The polyp was removed with acold snare. Resection and retrieval were complete. Verification of patient identification for the specimen was done. Estimated blood loss wasminimal. The exam was otherwise without abnormality ondirect and retroflexion views. A few small-mouthed diverticula were found in the sigmoid colon and descending colon. There was no evidence of diverticular bleeding. Procedure Code(s): --- Professional --- 67876, Colonoscopy, flexible; with removal of tumor(s), polyp(s), or other lesion(s) by snare technique 80053, 59, Colonoscopy, flexible; with biopsy,single or multiple Diagnosis Code(s): --- Professional --- Z12.11, Encounter for screening for malignantneoplasm of colon K64.9, Unspecified hemorrhoids D12.5, Benign neoplasm of sigmoid colon D12.3, Benign neoplasm of transverse colon (hepatic flexure or splenic flexure) CPT copyright 2020 [employer]. All rights reserved. The codes documented in this report are preliminary and upon gas engine operator reviewmay be revised to meet current compliance requirements. ROSA Nunez DO 12/23/2024 2:45:00 PM This report has been signed electronically.Rosa Nunez DO Number of Addenda: 0 Note Initiated On: 12/23/2024 2:22 PM Scope Withdrawal Time: 0 hours 7 minutes 44 seconds Scope In: 2:29:22 PM Scope Out: 2:42:51 PM Endoscopy Department at [facility] - [address] [place] [id number] IMPRESSION: - Hemorrhoids found on perianal exam. - One 3 mm polyp in the sigmoid colon, removed witha jumbo cold forceps. Resected and retrieved. - One 10 mm polyp in the transverse colon, removed with a cold snare. Resected and retrieved. - The examination was otherwise normal on directand retroflexion views. Recommendation: - - Discharge patient to home. - High fiber diet. - Continue present medications. - Await pathology results. - Repeat colonoscopy for surveillance based on pathology results. us Rosa Nunez DO GI~PROCEDURE ORDERABLES Final Re sult * (ABNORMAL) Lipid panel with reflex to direct LDL (11/18/2024 9:17 AM EST) Cholesterol 197 0 - 200 mg/dL LAB CHEMISTRY METHOD 11/18/2024 12:44 PM EST [facility] Triglycerides 60 0 - 150 mg/dL LAB CHEMISTRY METHOD 11/18/2024 12:44 PM EST [facility] HDL 66 >=40 mg/dL LAB CHEMISTRY METHOD 11/18/2024 12:[address] [facility] LDL Calculated 119(H) 0 - 100 mg/dL LAB CHEMISTRY METHOD 11/18/2024 12:[address] [facility] VLDL Cholesterol Enrique 12 mg/dL LAB CHEMISTRY METHOD 11/18/2024 12:[address] [facility] Non HDL Chol. (LDL+VLDL) 131 <145 mg/dL LAB CHEMISTRY METHOD 11/18/2024 12:44 PM EST [facility] Chol/HDL Ratio 3.0 0.0 - 4.4 LAB CHEMISTRY METHOD 11/18/2024 12:[address] [facility] Blood Venous blood specimen / Unknown Venipuncture / Unknown 11/18/2024 9:17 AM EST 11/18/2024 9:17 AM EST us Jimi Newell MD LAB BLOOD ORDERABLES Final Resu lt [facility] [address] [place] [address], * SCREENING MAMMOGRAPHY BI 2-VIEW BREAST INC [...] interpreted with the aid of computer-aided detection. Comparison is made with 05/15/2023 and as far back as 04/30/2020. Breast parenchyma is composed of scattered fibroglandular densities. No new suspicious mass, architectural distortion, or suspicious [...] negative Jimi Newell MD IMG XR PROCEDURES Final Result * Cervical Cancer Screening: HPV (01/13/2022) Cervical Cancer Screening: HPV negative, abstracted Historical Provider HEALTH MAINTENANCE Final Result from Last 3 Months or Most Recently Relevant to Health Maintenance Insurance [place] Care Teams Electrostatic Paint Operator Relationship Specialty Start Date End Date Jimi Newell MD [address] [place] [id number] PCP - General Internal Medicine 03/26/21
--- OUTSIDE RECORDS SUMMARY | 2025-05-26 10:59 | XMS_ITS | Patient Health Record ---
[facility] Address [address] [place] [address] Care Team Providers Care Police Chief Deputy Name Role Phone Reece PIZANO, Nate Primary Care Provider Diane Amor Unavailable [phone] Allergies Allergen (clinical drug ingredient) Drug/Non Drug [...] 1 capsule with food Orally Once a day; Duration: 30 day(s) Active Immunizations Vaccine Route Administration [...] Problem Status W/U Status Risk Notes Problem Acquired hallux valgus (37291920) Hallux valgus (acquired), right foot (M20.11) Active confirmed Plan Of Treatment Pending Test Test Name Order Date ,[id number] TENDON SHEATH/LIGAMENT 0 02/12/2021,[id number] TENDON SHEATH/LIGAMENT 0 06/12/2021 Insurance Providers Payer Name Payer Address Payer Phone Subscriber Number Group Number Insured Name Patient Relationship to Insured Coverage Start Date [facility]age End Date [facility] [address] [place] [address] [id number] Kusum Mckeon Self - patient is the insured Medical (General) History Medical History History ICD Code Arthritis Back,Hip,and Knee pain Broken bones Chicken pox Joint/ Bone implants/screws Surgical History Surgery Date(Month/Year) Hip Replacement 2012 Knee surgery 1986,1987,1988 [place] teeth extraction 1986 Severed tendon repair-right index finger 2008 Anal Fistula Surgery 2013 Essure 2011
== END 2025-05-26 11:45 | disposition home or self-care (01) ==
LOC: HO.HPS 10:55
PROVIDERS: Family Provider Nurse Practitioner Family; PCP Nurse Practitioner Family; Visit Provider Physician Assistant Medical
DX: Z87.891 Personal history of nicotine dependence (principal)
CPT/HCPCS: G0296

== ENCOUNTER 2025-05-26 11:19 | Outpatient (REF) | payer BC, SELFPAY ==
--- NOTE | ~2025-05-26 | CT_ITS ---
CLINICAL HISTORY: Z87.891 - Personal history of nicotine dependence CT lung cancer screening (LDCT) Comparison: None provided Technique: Axial CT images of the chest using low-dose technique. Referring provider counseled the patient on shared decision-making for LDCT screening. Additional counseling was provided on smoking cessation. Effective radiation dose total: DLP 50.6 mGycm, CTDIvol 1.6 mGy. Findings: Lung: No solid or semi solid lesion. Coronary artery calcifications: None Limited upper abdomen: Unremarkable Other: None Impression: Category 1: Normal; continue annual screening Category 1: Normal; continue annual screening Category 2: Benign appearance or behavior, continue annual screening Category 3: Probably benign, [address] recommended Category 4A: Suspicious, [address] recommended; may consider PET/CT Category 4B: Suspicious, Additional diagnostics and/or tissue sampling recommended Category 4X: Suspicious, Additional diagnostics and/or tissue sampling recommended Category 0: Recalls (incomplete screen due to Incomplete coverage, Noise, Respiratory motion, Expiration, Obscured by acute abnormality) This document has been electronically signed by: Levar Fry MD on 05/28/2025 09:01:06
== END 2025-05-26 11:20 | disposition home or self-care (01) ==
LOC: HO.CT 11:19
PROVIDERS: PCP Nurse Practitioner Family; Visit Provider Physician Assistant Medical
DX: Z12.2 Encounter for screening for malignant neoplasm of respiratory organs (principal); Z87.891 Personal history of nicotine dependence
CPT/HCPCS: 71271

== ENCOUNTER → 2025-05-26 11:21 | Outpatient (BNV) | payer BC, SELFPAY | PROVIDERS: PCP Nurse Practitioner Family; Visit Provider Specialist | DX: Z87.891 Personal history of nicotine dependence (principal) | CPT/HCPCS: 71271 ==

== ENCOUNTER 2025-07-04 09:01 | Outpatient (AMB) | payer BC, SELFPAY ==
--- NOTE | 2025-07-04 09:00 | MHC.OFFVIS ---
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 Chopped Strand Operator: Chopped Strand Operator Present (Christa) Accompanied by: Self / Same As Patient Allergies acetaminophen (From Hycomine Compound) Adverse Reaction (Verified 07/04/25 09:09) Rash acyclovir Adverse Reaction (Verified 07/04/25 09:09) blister chlorpheniramine (From Hycomine Compound) Adverse Reaction (Verified 07/04/25 09:09) Rash erythromycin base (From Ilosone) Adverse Reaction (Verified 07/04/25 09:09) rash hydrocodone (From Hycomine Compound) Adverse Reaction (Verified 07/04/25 09:09) Rash Penicillins Adverse Reaction (Verified 07/04/25 09:09) rash phenylephrine (From Hycomine Compound) Adverse Reaction (Verified 07/04/25 09:09) Rash promethazine (From Phenergan) Adverse Reaction (Verified 07/04/25 09:09) rash mysteclin Adverse Reaction (Uncoded 01/30/24 09:28) rash Medication List - Last Reconciled 07/04/25 by Linda Tafoya CNM amlodipine 5 mg PO DAILY celecoxib (Celebrex) 200 mg PO DAILY levonorgestrel (Mirena) intrauterine omeprazole 40 mg PO ONCE ondansetron HCl 4 mg PO Q8H PRN tirzepatide (weight loss) (Zepbound) 2.5 mg subcut QWEEK Is last menstrual period known: No Post menopausal: No Patient : No HPI HPI 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 She previously received care for many many years at the [facility], and saw Linda Castañeda for years and then a doctor named daniel............... She has an Essure that was placed by Dr. Groves many years ago and then about 3-1/2 years ago she had a Mirena IU S placed because of dysfunctional saturnino menopausal bleeding it has not given her any trouble although occasionally she feels a an unusual kind of a sharp ?ink feeling left lower quadrant when she bends over at a funny angle to open or close a valve on a washing machine low down. She has no concerns at all about STIs she does have a sore on her labia that she thinks was a ingrown hair that pops the other day she says she gets something like that maybe once a year. She is wondering where she is on the menopause journey and is wondering how that could be figured out. She is up-to-date on her mammograms and she gets them at [facility] and her last 1 again came back normal. She establish care with Brian Greenwood somewhat recently and we will be getting lab work through him soon. She is been on Zepbound for about 4 months and has lost over 30 lb and is also working very hard at it with walking and treadmill and exercise bike. [facility] Medical History HTN (hypertension) CPAP (continuous positive airway pressure) dependence Personal history of nicotine dependence Presence of Mirena IUD Hemorrhoids Fistula, anal Meningitis Tooth abscess Pilonidal cyst Surgical History History of left hip replacement Family History Mother High blood pressure Hyperthyroidism Fibromyalgia Kidney cancer, primary, with metastasis from kidney to other site Father No problems noted. 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 Current occupational exposures/hazards: No Cognitive needs: No Hearing needs: No Vision needs: No Female Reproductive History Menstrual control method: progestin IUCD (Mirena) Total pregnancies: 2 Full term: 1 History of abnormal pap smear: No Date of Mammogram: 06/01/25 (bi rad 1) Physical Exam Vital Signs: Last Vital Signs BP 120/70 07/04/25 09:11 BMI result Body Mass Index 34.6 Const General: healthy appearing, comfortable, no acute distress, well developed and alert Nutritional Appearance: average body habitus Orientation/consciousness: patient oriented x3 Limitations: no limitations HEENT Head: Yes normocephalic Neck Neck: Yes normal visual inspection Thyroid: Thyroid normal Chest Chest palpation & inspection: normal inspection of the chest Breast/axilla inspection: normal inspection of the breasts and normal inspection of the axillae Breast/axilla palpation: normal palpation of the breasts and normal palpation of the axillae Resp Effort & Inspection: normal respiratory effort GI Inspection: Yes normal to inspection, No Abdominal wall edema and No distended Palpation (GI): Soft to palpation and nontender Other: Normal external exam there is a slight swelling left labia with a little redness that could possibly represent a healing folliculitis. It is mostly healed so it is difficult to tell what it may have been. Vagina is pink and moist nulliparous appearing cervix pink and smooth with Mirena string easily visible cervix is long close thick mobile nontender uterus difficult to feel secondary to adipose adnexa difficult to feel but not enlarged and nontender. Fair tone with Kegel. General: Yes bladder normal to palpation External Female Exam: normal external appearance and normal appearance of the urethra Speculum Exam - Vagina: normal appearance of the vagina, normal palpation and normal vaginal discharge Speculum Exam - Cervix: normal appearance of the cervix, normal palpation and nontender Bimanual exam- vagina & uterus: normal bimanual exam, normal palpation, uterine size normal, bladder normal to palpation, consistency normal, normal palpation, uterine mobility normal, uterine shape normal, No Cervical tenderness present, non-tender and no cervical motion tenderness Bimanual Exam- Adnexa, other: normal adnexae, no masses, normal and No adnexal tenderness Neuro General: patient oriented x3 Assessment & Plan Assessment & Plan (1) Presence of Mirena IUD: Code(s): Z97.5 - Presence of (intrauterine) contraceptive device Category: Social Hx (2) Perimenopause: Code(s): N95.1 - Menopausal and female climacteric states Category: Medical (3) Well woman exam with routine gynecological exam: Code(s): Z01.419 - Encounter for gynecological examination (general) (routine) without abnormal findings Category: Medical (4) Cervical cancer screening: Code(s): Z12.4 - Encounter for screening for malignant neoplasm of cervix Category: Medical Plan -----Discussed in this visit the following: healthy balanced diet, regular and consistent exercise, getting recommended health screens, doing the best she can for her particular health concerns, kegel exercises, pap smear screening and followup recommendations, mammography screening and SBE, normal changes in cycles in her life stage--- . Discussed all of the issues in HPI please see HPI for those details. She is going to continue with [facility] for her mammograms. And follow-up with her primary care provider as needed. Congratulated on her hard work with her weight loss. Discussed changes the can be a parent as she loses weight Discussed the challenges of figuring out if she is truly through menopause or where she is on the journey it is often recommended to remove any hormone emitting device before getting any blood work to provide more valid interpretation of follicle stimulation hormone results however it could definitely be acceptable to at least see where it is I have ordered the blood test and she can get it done whenever she is getting her other lab work done and I have asked her to call the office within a couple of weeks to discuss the results as she would not need a special visit just to discuss that. I did offer her an ultrasound to investigate the sensation she feels but she decided to wait on that. Discussed the challenge of deciding whether not to remove the Mirena and she does not want to end up with dysfunctional bleeding if it is removed too soon so I did discuss that it can be used for between 5-8 years for this indication, RTC 1 year. Orders: Orders Follicle Stimulating Hormone Today N95.1 - Menopausal and female climacteric states, Z97.5 - Presence of (intrauterine) contraceptive device Pap Smear Today Z12.4 - Encounter for screening for malignant neoplasm of cervix Coding Level of Care Code New Pt Prev Care 40-64y(40471) Diagnoses Presence of Mirena IUD Z97.5 Perimenopause N95.1 Well woman exam with routine gynecological exam Z01.419 Cervical cancer screening Z12.4
[2025-07-04 09:11] VITALS: BP 120/70; BMI 34.6
--- OUTSIDE RECORDS SUMMARY | 2025-07-04 09:37 | XMS_ITS | Encounter Summary ---
Author Organization [facility] Address [address] [place] [address] Care Team Providers Care Rock Wool Insulator Name Role Phone Jimi Newell MD Primary Care Provider [phone] Encounter Details Date Type Department Care Team Description 09/04/2022 Retail Client Solutions Analyst Report Medical Records [address] [place] [address] Jensen Fenton MD Social History Tobacco Use Types Packs/Day Years Used Date Smoking Tobacco: Former Cigarettes 0.3 20 Q uit: 06/2021 Smokeless Tobacco: Never Comments:approx 5 cigs daily Alcohol Use Standard Drinks/Week Comments Yes 0 (1 standard drink = 0.6 oz pur e alcohol) 1-2 drinks per week Sex Assigned at Date Recorded Female 08/04/2024 1:27 PM E DT Job Start Date Occupation Industry Not on file Not on file Not on file documented as of this encounter Plan of Treatment Not on file documented as of this encounter Visit Diagnoses Not on filedocumented in this encounter Care Teams Rock Wool Insulator Relationship Specialty Start Date End Date Jimi Newell MD [address] [place] [address] PCP - General Internal Medicine 03/26/21 documented as of this encounter
--- OUTSIDE RECORDS SUMMARY | 2025-07-04 09:37 | XMS_ITS | Encounter Summary ---
Author Organization [facility] Address [address] [place] [address] Care Team Providers Care Blood Tester Name Role Phone Pranav Zimmer MD Primary Care Provider Maria Eugenia Levar Ornelas MD Primary Care Provider Unavail able Blaire Sahni DO Primary Care Pro vider Unavailable Kar Valero DO Primary Care Provider Maria Eugenia [place] Lisa MD Primary Care Provider Encounter Details Date Type Department Care Team Description 06/24/2012 Home Health Certification Medical Records [address] [place] [address] Abstract, Provider Social History Tobacco Use Types Packs/Day Years Used Date Smoking Tobacco: Former Cigarettes 20 Q uit: 06/01/2012 Smokeless Tobacco: Never Alcohol Use Standard Drinks/Week Comments Yes 0 (1 standard drink = 0.6 oz pur e alcohol) 1 per day Sex Assigned at Date Recorded Female 08/04/2024 1:27 PM E DT Job Start Date Occupation Industry Not on file Not on file Not on file documented as of this encounter Plan of Treatment Not on file documented as of this encounter Visit Diagnoses Not on filedocumented in this encounter Care Teams Blood Tester Relationship Specialty Start Date End Date Pranav Zimmer MD PCP - General 04/08/11 07/25/14 Levar Leal MD PCP - General Internal Medicine 07/26/14 04/15/15 Blaire Sahni DO PCP - General Internal Medicine 04/16/15 03/21/21 Valero, Kar, DO PCP - General Internal Medicine 03/22/21 1 Jimi Newell MD [address] [place] [address] PCP - General Internal Medicine 03/26/21 documented as of this encounter
--- OUTSIDE RECORDS SUMMARY | 2025-07-04 09:37 | XMS_ITS | Encounter Summary ---
Author Organization [facility] Address [address] [facility] [place] [address] Care Team Providers Care Lactation Specialist Name Role Phone Pranav Zimmer MD Primary Care Provider Maria Eugenia Levar Ornelas MD Primary Care Provider Unavail able Blaire Sahni DO Primary Care Pro vider Unavailable Kar Valero DO Primary Care Provider Maria Eugenia Jimi Lisa MD Primary Care Provider Encounter Details Date Type Department Care Team Description 06/03/2012 Hospital Medical Records [address] [place] [address] Kurt Andres MD Social History Tobacco Use Types Packs/Day Years Used Date Smoking Tobacco: Some Days Cigarettes 0.3 20 Last attempted to quit: 06/2021 Smokeless Tobacco: Never Comments:2 packs per week Alcohol Use Standard Drinks/Week Comments Yes 0 (1 standard drink = 0.6 oz pur e alcohol) 2-3 drinks per week Sex Assigned at Date Recorded Female 08/04/2024 1:27 PM E DT Job Start Date Occupation Industry Not on file Not on file Not on file documented as of this encounter Plan of Treatment Not on file documented as of this encounter Visit Diagnoses Not on filedocumented in this encounter Care Teams Lactation Specialist Relationship Specialty Start Date End Date Pranav Zimmer MD PCP - General 04/08/11 07/25/14 Levar Leal MD PCP - General Internal Medicine 07/26/14 04/15/15 Blaire Sahni DO PCP - General Internal Medicine 04/16/15 03/21/21 Kar Valero DO PCP - General Internal Medicine 03/22/21 1 Jimi Newell MD [address] [place] [address] PCP - General Internal Medicine 03/26/21 documented as of this encounter
--- OUTSIDE RECORDS SUMMARY | 2025-07-04 09:37 | XMS_ITS | Clinical Summary ---
Author Organization [facility] Address [address] [facility] [place] [address] Care Team Providers Care Sugar Mixer Name Role Phone Jimi Newell MD Primary Care Provider [phone] Allergies Active Allergy Reactions Severity Noted Date Comments Zovirax OTHER 06/11/2012 Iv caused blisters on hand When switched to other hand, pt was fine Codeine 01/15/2006 Erythromycin Estolate 01/15/2006 Promethazine Hcl 01/15/2006 Ampicillin Rash/Dermatitis 01/15/2006 Medications Medication Sig Dispensed Refills Start Date End Date Status acetaminophen (TYLENOL) 500 MG tablet 1 Tab 2 times daily. 100 Tab 4 01/29/2012 Active Celecoxib (CELEBREX OR) Take by mouth daily. 0 Active ketoconazole (NIZORAL) 2 % cream Apply to area bid 30 g 0 08/12/2021 Active levonorgestrel (MIRENA) 20 MCG/24HR IUDIndications:Enco unter for insertion of intrauterine contraceptive device 1 Each by Intrauterine route Once. 1 Each 0 01/21/2022 7 Active omeprazole (PRILOSEC) 20 MG capsule Take 1 Capsule by mouth daily. 90 Capsule 1 05/12/2024 Active aspirin-acetaminoph en-caffeine (Excedrin Extra Strength) 250-250-65 MG per tablet Take 1 Tablet by mouth every 6 hours as needed for Pain. 30 Tablet 0 05/12/2024 Active Active Problems Problem Noted Date Abnormal uterine bleeding (AUB) 01/20/20 22 Last Assessment & Plan: She will return for Mirena IUD [id number] 04/12/2013 Osteoarthritis of hip 01/29/2012 Overview: L>R Pilonidal cyst 03/28/2008 allergic rhinitis 02/06/2006 Immunizations Name Administration Dates Next Due COVID-19 (Moderna Booster) 06/26/2022,08/07/2021 COVID-19 (Moderna) 01/25/2021,12/28/2020 Covid-19 Bivalent (Moderna) 07/03/2023 Influenza (> 6 Months) 07/20/2016,2014,07/16/2014, 013,07/07/2012,07/18/2011,07/20/2010,01/2009,06/27/2008 Influenza H1N1 Pandemic Flu Vaccine 09/15/2009 Influenza Vaccine-quadrivale nt 4 Years Plus 07/25/2018,07/26/2017 Tdap 05/12/2024,05/18/2007 Family History Medical History Relation Name Comments CA Breast Aunt dar callahan in 80s Arthritis Maternal Grandmother Arthritis Mother fibromyalgia CA of Renal Cell Mother CA Colon Negative Hx CA Ovarian Negative Hx CA Prostate Negative Hx Cancer of the Pancreas Negative Hx Cancer of the Prostate Negative Hx Relation Name Status Comments Aunt dar [...] attempted to quit: 06/2021 Smokeless Tobacco: Never Tobacco Cessation:Ready to Q uit: Not Asked Comments:2 packs per week Alcohol Use Standard Drinks/Week Comments Yes 0 (1 standard drink = 0.6 oz pur e alcohol) 2-3 drinks per week Sex Assigned at Date Recorded Female 08/04/2024 1:27 PM E DT Job Start Date Occupation Industry Not on file Not on file Not on file Last Filed Vital Signs Vital Sign Reading Time Taken Comments Blood Pressure 110/78 05/12/2024 8:42 AM EDT Pulse 99 05/12/2024 8:42 AM EDT Temperature 36.3 C (97.4 F) 05/12/2024 8:42 AM EDT Respiratory Rate 16 03/06/2022 4:03 PM EDT Oxygen Saturation 97% 05/12/2024 8:42 AM EDT Inhaled Oxygen Concentration - - Weight 102.9 kg (226 lb 12.8 oz) 05/12/2024 8:42 AM EDT Height 165.1 cm (5' 5 ) 05/12/2024 8:42 AM EDT Body Mass Index 37.74 05/12/2024 8:42 AM EDT Plan of Treatment Health Maintenance Due Date Last Done Comments HEPATITIS C SCREENING 12/30/1989 COLON CANCER SCREENING 12/30/2021 SHINGLES VACCINE (1 of 2) 12/30/2021 BMI CHECK/ADVISE 10/05/2024 05/12/2024, 05/2024 (Completed), 09/25/2022, Additional history exists CERVICAL CANCER SCREENING 01/13/20252021, 02/13/2017, 09/25/2014, Additional history exists MAMMOGRAM 05/20/2025 05/20/2024, 05/05, 05/12/2022, Additional history exists Covid-19 Vaccine (2022-11 4 season) 2025 07/03/2023, 06/26/2022, 08/07/2021, Additional history exists INFLUENZA (#1) 2025 07/25/2018, 07/06, 07/20/2016, Additional history exists BASELINE HEALTH EXAM 40-64 05/12/202605/12, 05/12/2024, 08/12/2021, Additional history exists CHOLESTEROL SCREENING 05/12/2029 05/12/2024 , 08/12/2021, 07/14/2008 DTAP/TDAP/TD (3 - Td or Tdap) 05/12/2034 05/12/2024, 05/18/2007 PNEUMOCOCCAL VACCINE FOR HIG H RISK PATIENTS (#1) 12/30/2036 Care Teams Sugar Mixer Relationship Specialty Start Date End Date Jimi Newell MD [address] [place] [address] [place] [address] PCP - General Internal Medicine 03/26/21
--- OUTSIDE RECORDS SUMMARY | 2025-07-04 09:37 | XMS_ITS | Encounter Summary ---
Author Organization [facility] Address [address] [place] [address] Care Team Providers Care Rate Setter Name Role Phone Pranav Zimmer MD Primary Care Provider Maria Eugenia Levar Ornelas MD Primary Care Provider Unavail able Blaire Sahni DO Primary Care Pro vider Unavailable Kar Valero DO Primary Care Provider Maria Eugenia Jimi Lisa MD Primary Care Provider [phone] Encounter Details Date Type Department Care Team Description 06/25/2012 Molder Operator Report Medical Records [address] [place] [address] Rochelle Garcia MD Social History Tobacco Use Types Packs/Day [...] on filedocumented in this encounter Care Teams Rate Setter Relationship Specialty Start Date End Date Pranav Zimmer MD PCP - General 04/08/11 07/25/14 Levar Leal MD PCP - General Internal Medicine 07/26/14 04/15/15 Blaire Sahni DO PCP - General Internal Medicine 04/16/15 03/21/21 Kar Valero DO PCP - General Internal Medicine 03/22/21 1 Jimi Newell MD [address] [place] [address] PCP - General Internal Medicine 03/26/21 documented as of this encounter
--- OUTSIDE RECORDS SUMMARY | 2025-07-04 09:37 | XMS_ITS | Encounter Summary ---
Author Organization [facility] Address [address] [facility] [place] [address] Care Team Providers Care Master Police Detective Name Role Phone Pranav Zimmer MD Primary Care Provider Maria Eugenia Levar Ornelas MD Primary Care Provider Unavail able Blaire Sahni DO Primary Care Pro vider Unavailable Kar Valero DO Primary Care Provider Maria Eugenia Jimi Lisa MD Primary Care Provider [phone] Encounter Details Date Type Department Care Team Description 06/23/2013 Investor Relations Analyst Report Medical Records [address] [place] [address] Seferino Cooper MD Social History Tobacco Use Types Packs/Day Years Used Date Smoking Tobacco: Every Day Cigarettes 0.3 20 Smokeless Tobacco: Never Alcohol Use Standard Drinks/Week [...] on filedocumented in this encounter Care Teams Master Police Detective Relationship Specialty Start Date End Date Pranav Zimmer MD PCP - General 04/08/11 07/25/14 Levar Leal MD PCP - General Internal Medicine 07/26/14 04/15/15 Blaire Sahni DO PCP - General Internal Medicine 04/16/15 03/21/21 Kar Valero DO PCP - General Internal Medicine 03/22/21 1 Jimi Newell MD [address] [place] [address] PCP - General Internal Medicine 03/26/21 documented as of this encounter
--- OUTSIDE RECORDS SUMMARY | 2025-07-04 09:37 | XMS_ITS | Encounter Summary ---
Author Organization [facility] Address [address] [facility] [place] [address] Care Team Providers Care Hall Director Name Role Phone Jimi Newell MD Primary Care Provider [phone] Reason for Visit * Reason Onset Date Comments arthritis 08/15/2024 Encounter Details Date Type Department Care Team Description 08/15/2024 Telephone Adult Medicine [address] [id number] Jimi Newell MD [address] [place] [address] arthritis Social History Tobacco Use Types Packs/Day Years [...] on filedocumented in this encounter Care Teams Hall Director Relationship Specialty Start Date End Date Jimi Newell MD [address] [place] [address] PCP - General Internal Medicine 03/26/21 documented as of this encounter
--- OUTSIDE RECORDS SUMMARY | 2025-07-04 09:37 | XMS_ITS | Encounter Summary ---
Author Organization [facility] Address [address] [place] [address] Care Team Providers Care Collection Clerk Name Role Phone Jimi Newell MD Primary Care Provider [phone] Reason for Visit * Reason Onset Date Comments External Sleep Study Request 05/25/2024 Jennifer e sleep study Encounter Details Date Type Department Care Team Description 05/25/2024 Telephone Adult Medicine [facility] [address] [place] [address] Munira Moyer PA-C [address] [place] [address] External Sleep Study Request (Home sleep study ) Social History Tobacco Use Types Packs/Day Years [...] on file documented as of this encounter Miscellaneous Notes * Telephone Encounter - Asia Elizalde Presley - 05/25/2024 1:51 PM EDT [employer] auth # [id number] valid 05/25/24-07/23/24 Home study [id number] SMS Order and benefits faxed to [facility] for scheduling. They will contact pt. Notification letter sent. documented in this encounter Plan of Treatment Not on file documented as of this encounter Visit Diagnoses Not on filedocumented in this encounter Care Teams Collection Clerk Relationship Specialty Start Date End Date Jimi Newell MD [address] [place] [id number] PCP - General Internal Medicine 03/26/21 documented as of this encounter
--- OUTSIDE RECORDS SUMMARY | 2025-07-04 09:37 | XMS_ITS | Encounter Summary ---
Author Organization [facility] Address [address] [facility] [place] [address] Care Team Providers Care Explosive Operator Fuse Name Role Phone Jimi Newell MD Primary Care Provider [phone] Encounter Details Date Type Department Care Team Description 08/01/2024 Cuff Knitter Report Medical Records [address] [place] [address] Social History Tobacco Use Types Packs/Day Years [...] on filedocumented in this encounter Care Teams Explosive Operator Fuse Relationship Specialty Start Date End Date Jimi Newell MD [address] [place], [place] [id number] PCP - General Internal Medicine 03/26/21 documented as of this encounter
--- OUTSIDE RECORDS SUMMARY | 2025-07-04 09:37 | XMS_ITS | Encounter Summary ---
Author Organization [facility] Address [address] [place] [address] Care Team Providers Care Carton Making Machinist Name Role Phone Jimi Newell MD Primary Care Provider [phone] Encounter Details Date Type Department Care Team Description 01/23/2022 Transfer Records Medical Records [address] [place] [address] Abstract, Provider Social History Tobacco Use Types [...] file Not on file Not on file COVID-19 Exposure Response Date Recorded In the last 10 days, have yo u been in contact with someone who was confirmed or suspected to have Coronavirus/COVID-19? No / Unsure 01/21/2022 11:38 AM EDT documented as of this encounter Plan of Treatment Not on file documented as of this encounter Visit Diagnoses Not on filedocumented in this encounter Care Teams Carton Making Machinist Relationship Specialty Start Date End Date Jimi Newell MD [address] [place] [address] PCP - General Internal Medicine 03/26/21 documented as of this encounter
--- OUTSIDE RECORDS SUMMARY | 2025-07-04 09:37 | XMS_ITS | Encounter Summary ---
Author Organization [facility] Address [address] [place] [address] Care Team Providers Care Biometrics Specialist Name Role Phone Jimi Newell MD Primary Care Provider [phone] Reason for Referral * Non WILBERT (Urgent) - Authorized/Booked Specialty Diagnoses / Procedures Referred By Contac t Referred To Contact Gastroenterology Diagnoses Rectal cyst Procedures REFERRAL TO COLORECTAL SURGERY Jimi Newell MD [address] [place] [address] Seferino Cooper MD [address] [facility] [address] [address] [place] [address] Referral ID Status Reason Start Date Expiration Date V isits Requested Visits Authorized [id number] Authorized/B ooked 09/23/2022 09/23/2023 6 6 Reason for Visit * Reason Onset Date Comments Culinary Intern Feedback 09/23/2022 Seferino Em/color ectal Encounter Details Date Type Department Care Team Description 09/23/2022 Telephone Internal Medicine - [place] [address] [facility], [address] [place] [address] Jimi Newell MD [address] [place] [address] Culinary Intern Feedback (Seferino Em/colorectal) Social History Tobacco Use Types Packs/Day Years [...] Recorded In the last 10 days, have elizabeth u been in contact with someone who was confirmed or suspected to have Coronavirus/COVID-19? No / Unsure 09/25/2022 11:09 AM EST documented as of this encounter Miscellaneous Notes * Telephone Encounter - Sarah Devine - 09/23/2022 9:11 AM EST Please review this patients new referral request. The referral has been pended. Please complete thefollowing: If approved> sign order If denied>please give instructions and route to your practice nursing pool. Practice nurse should inform referrals and the patient if denied. documented in this encounter Plan of Treatment Not on file documented as of this encounter Visit Diagnoses Diagnosis Rectal cyst- Primary Other specified disorder of rectum and anus documented in this encounter Care Teams Biometrics Specialist Relationship Specialty Start Date End Date Jimi Newell MD [address] [place] [address] PCP - General Internal Medicine 03/26/21 documented as of this encounter
--- OUTSIDE RECORDS SUMMARY | 2025-07-04 09:37 | XMS_ITS | Encounter Summary ---
Author Organization [facility] Address [address] [place] [address] Care Team Providers Care C.O.D. Clerk Name Role Phone Jimi Newell MD Primary Care Provider [phone] Encounter Details Date Type Department Care Team Description 03/05/2023 Medical Secretary Receptionist Report Medical Records [address] [place] [address] Jensen Fenton MD Social History Tobacco Use [...] on filedocumented in this encounter Care Teams C.O.D. Clerk Relationship Specialty Start Date End Date Jimi Newell MD [address] [place] [address] PCP - General Internal Medicine 03/26/21 documented as of this encounter
--- OUTSIDE RECORDS SUMMARY | 2025-07-04 09:37 | XMS_ITS | Encounter Summary ---
Author Organization [facility] Address [address] [place] [address] Care Team Providers Care Unit Secy Name Role Phone Pranav Zimmer MD Primary Care Provider Maria Eugenia Levar Ornelas MD Primary Care Provider Unavail able Blaire Sahni DO Primary Care Pro vider Unavailable Kar Valero DO Primary Care Provider Maria Eugenia Jimi Lisa MD Primary Care Provider [phone] Reason for Visit * Reason Onset Date Comments Medication 06/09/2012 Encounter Details Date Type Department Care Team Description 06/09/2012 Telephone Adult [address] [address] Pranav Zimmer MD Medication Social History Tobacco Use Types Packs/Day Years Used Date Smoking Tobacco: Every Day Cigarettes 20 Smokeless Tobacco: Never Comments:pt smoking 2 to 3 c igs per day Alcohol Use Standard Drinks/Week Comments Yes 0 (1 standard drink = 0.6 oz pur e alcohol) 1 per day Sex Assigned at Date Recorded Female 08/04/2024 1:27 PM E DT Job Start Date Occupation Industry Not on file Not on file Not on file documented as of this encounter Miscellaneous Notes * Telephone Encounter - Isa Roldan R.N. - 06/10/2012 11:21 AM EDT Pt is due to end labs on Thursday ( vanco and Rocephin) and Thursday ( acyclovir) After the appointment tomorrow please let me know if you want additional drug levels done next weekas they end infusions. * Telephone Encounter - Isa Roldan R.N. - 06/09/2012 3:50 PM EDT Pt to be seen on 06/11 will do orders for drug levels at that time. * Telephone Encounter - Destiney Dimas - 06/09/2012 3:[address] Zimmer want a 2nd set of labs drawn at the end of therapy? * Telephone Encounter - Pranav Zimmer MD - 06/09/2012 2:16 PM EDT OK to refill * Telephone Encounter - Isa Roldan R.N. - 06/09/2012 1:[address] Zimmer has the fax * Telephone Encounter - Natalia Lees - 06/09/2012 1:25 PM EDT [facility] faxed us with patient's labs. They would like to send shipment of antibioticstomorrow, need Dr Zimmer' verbal ok. Vancomycin trough was 12. Fax given to Isa. documented in this encounter Plan of Treatment Not on file documented as of this encounter Visit Diagnoses Not on filedocumented in this encounter Care Teams Unit Secy Relationship Specialty Start Date End Date Pranav Zimmer MD PCP - General 04/08/11 07/25/14 Levar Leal MD PCP - General Internal Medicine 07/26/14 04/15/15 Blaire Sahni, PCP - General Internal Medicine 04/16/15 03/21/21 Kar Valero DO PCP - General Internal Medicine 03/22/21 1 Jimi Newell MD [address] [place] [id number] PCP - General Internal Medicine 03/26/21 documented as of this encounter
--- OUTSIDE RECORDS SUMMARY | 2025-07-04 09:38 | XMS_ITS | Encounter Summary ---
Author Organization [facility] Address [address] [place] [address] Care Team Providers Care Reverberatory Skimmer Name Role Phone Blaire Sahni DO Primary Care Pro vider Unavailable Kar Valero DO Primary Care Provider Maria Eugenia Jimi Lisa MD Primary Care Provider [phone] Encounter Details Date Type Department Care Team Description 08/20/2020 Tobacco Stemmer Report Medical Records [address] [place] [address] Jensen Fenton MD Social History Tobacco Use Types Packs/Day Years Used Date Smoking Tobacco: Every Day Cigarettes 0.3 20 Smokeless Tobacco: Never Comments:approx 5 cigs daily [...] on filedocumented in this encounter Care Teams Reverberatory Skimmer Relationship Specialty Start Date End Date Blaire Sahni DO PCP - General Internal Medicine 04/16/15 03/21/21 Kar Valero DO PCP - General Internal Medicine 03/22/21 1 Jimi Newell MD [address] [place] [address] PCP - General Internal Medicine 03/26/21 documented as of this encounter
--- OUTSIDE RECORDS SUMMARY | 2025-07-04 09:38 | XMS_ITS | Encounter Summary ---
Author Organization [facility] Address [address] [place] [address] Care Team Providers Care Student Admissions Clerk Name Role Phone Jimi Newell MD Primary Care Provider [phone] Reason for Visit * Reason Onset Date Comments Med Refill 06/19/2025 Zepbound Encounter Details Date Type Department Care Team (Late st Contact Info) Description 06/19/2025 Telephone Bariatric Surgery - [address] [place] [address] Nikky Duarte MD [address] [place] [phone] Social History Tobacco Use Types Packs/Day Years Used Date Smoking Tobacco: Former Cigarettes Q uit: 06/05/2021 Smokeless Tobacco: Never Alcohol Use Standard Drinks/Week Comments Yes 3 (1 standard drink = 0.6 oz pur e alcohol) Interpersonal Safety Answer Date Record ed Physical Abuse Unrecognized value 12/23/2024 Verbal Abuse Unrecognized value 12/23/2024 Comments No Sex and Gender Information Value Date Recorded Sex Assigned at Female 12/22/2024 3:51 PM EDT Legal Sex Female 10:00 AM EST Gender Identity Female 12/22/2024 3:51 PM EDT Sexual Orientation Straight 12/22/2024 3: 52 PM EDT documented as of this encounter Progress Notes * Lea Valle - 06/19/2025 4:11 PM EDT Patient did well on Zepbound 7.5 mgs and would like a refill with titration. If appropriate, please send script for Zepbound 10 mgs to their pharmacy. The patient does have a follow up in 06/27/2025 documented in this encounter Plan of Treatment Upcoming Encounters Date Type Department Care Team (Late st Contact Info) Description 08/07/2025 8:00 AM EST Nutrition Bariatric Surgery - [place] [address] [address] [address] Mon, RD [address] [address] Scheduled Procedures Name Priority Associated Diagnoses Date/Ti me ARTHROPLASTY CARPOMETACARPAL Arthritis of carpometacarpal (CMC) joint of right thumb documented as of this encounter Visit Diagnoses Not on filedocumented in this encounter Care Teams Student Admissions Clerk Relationship Specialty Start Date End Date Jimi Newell MD [address] [place] [address] PCP - General Internal Medicine 03/26/21 documented as of this encounter
--- OUTSIDE RECORDS SUMMARY | 2025-07-04 09:38 | XMS_ITS | Patient Health Record ---
Author Organization [facility] Address [address] [facility] [place] [address] Care Team Providers Care Fitter Armament Name Role Phone Reece PIZANO, Nate Primary Care Provider Diane Amor Unavailable [phone] Allergies Allergen (clinical drug ingredient) Drug/Non Drug [...] Status Risk Notes Problem Acquired hallux valgus (80835018) Hallux valgus (acquired), right foot (M20.11) Active confirmed Plan Of Treatment Pending Test Test Name Order Date ,[id number] TENDON SHEATH/LIGAMENT 0 02/12/2021,[id number] TENDON SHEATH/LIGAMENT 0 06/12/2021 Insurance Providers Payer Name Payer Address Payer Phone Subscriber Number Group Number Insured Name Patient Relationship to Insured Coverage Start Date Coverage End Date [facility] [address] [place] [address] [id number] Kusum Mckeon Self - patient is the insured Medical (General) History Medical History History ICD Code Arthritis Back,Hip,and Knee pain Broken bones Chicken pox Joint/ Bone implants/screws Surgical History Surgery Date(Month/Year) Hip Replacement 2012 Knee surgery 1986,1987,1988 [place] teeth extraction 1986 Severed tendon repair-right index finger 2008 Anal Fistula Surgery 2013 [place] 2011
--- OUTSIDE RECORDS SUMMARY | 2025-07-04 09:38 | XMS_ITS | Encounter Summary ---
Author Organization [facility] Address [address] [place] [address] Care Team Providers Care Bottle Caser Name Role Phone Pranav Zimmer MD Primary Care Provider Maria Eugenia Emil Rosas MD Primary Care Provider Unav Levar Muñiz MD Primary Care Provider Unavail able Blaire Sahni DO Primary Care Pro vider Unavailable Kar Valero DO Primary Care Provider Maria Eugenia Jimi Lisa MD Primary Care Provider [phone] Encounter Details Date Type Department Care Team Description 04/13/2010 Night Triage Doc Medical Records [address] [place] [id number] Abstract, Provider Social History Tobacco Use Types Packs/Day Years Used Date Smoking Tobacco: Every Day Cigarettes 0.3 20 Comments:less than pack per week Alcohol Use Standard Drinks/Week Comments [...] on filedocumented in this encounter Care Teams Bottle Caser Relationship Specialty Start Date End Date Pranav Zimmer MD PCP - General 04/08/11 07/25/14 Emil Soliman MD PCP - General 12/16/1998 04/07/11 Levar Leal MD PCP - General Internal Medicine 07/26/14 04/15/15 Blaire Sahni DO PCP - General Internal Medicine 04/16/15 03/21/21 Kar Valero DO PCP - General Internal Medicine 03/22/21 1 Jimi Newell MD [address] [place] [id number] PCP - General Internal Medicine 03/26/21 documented as of this encounter
--- OUTSIDE RECORDS SUMMARY | 2025-07-04 09:38 | XMS_ITS | Clinical Summary ---
Author Organization [facility] Address [address] [place] [address] Phone Care Team Providers Care Die Casting Machine Setter Name Role Phone Jimi Newell MD Primary Care Provider [phone] Allergies Active Allergy Reactions Criticality Noted Date [...] mg tablet 1 Tab 2 times daily. 01/29/20 12 Active CELECOXIB ORAL Take by mouth daily. Active levonorgestreL (MIRENA) 21 mcg/24 hr (8 yrs) 52 mg IUD 1 Each by Intrauterine route Once. 01/22/20 22 027 Active aspirin-acetam inophen-caffei ne (EXCEDRIN MIGRAINE) 250-250-65 mg per tablet Take 1 Tablet by mouth every 6 hours as needed for Pain Active omeprazole (PriLOSEC) [address] capsule Take 1 capsule (40 mg total) by mouth 1 (one) time each day. Do not crush or chew. 30 each 11 11/18/19 25 026 Active amLODIPine (NORVASC) 5 mg tablet Take 1 tablet (5 mg total) by mouth 1 (one) time each day. 90 tablet 1 02/21/20 25 Active ondansetron (ZOFRAN) 4 mg tablet Take 1 tablet (4 mg total) by mouth every 8 (eight) hours if needed for nausea or vomiting. Active tirzepatide, weight loss, (Zepbound) 10 mg/0.5 mL injection Inject 0.5 mL (10 mg total) under the skin every 7 (seven) days for 28 days. 2 mL 06/21/20 25 025 Active ketoconazole (NIZORAL) 2 % cream Apply to area bid 08/12/20 21 025 Discontinued methylPREDNISo lone (MEDROL DOSPAK) 4 mg tablet TAKE 6 TABLETS ON DAY 1 DIRECTED ON PACKAGE AND DECREASE BY 1 TAB EACH DAY FOR A TOTAL OF 6 DAYS 10/19/19 025 Discontinued polyethylene glycol (Golytely) 236-22.74-6.74 -5.86 gram solution Take 4L by mouth once for one dose. May substitue any PEG. Starting at 6PM the night before your procedure drink 1 8oz glasses at your own pace until you complete half of the gallon. Finish 2nd half of the gallon 5 hours before your procedure. 4000 mL 12/10/19 25 025 Discontinued bisacodyL (DULCOLAX) 5 mg EC tablet Take 2 tablets by mouth right before beginning bowel prep. See instructions provided by the office 2 tablet 12/10/19 25 025 Discontinued tirzepatide, weight loss, (Zepbound) 7.5 mg/0.5 mL injection Inject 0.5 mL (7.5 mg total) under the skin every 7 (seven) days. 2 mL 05/24/20 25 025 Discontinued Active Problems Problem Noted Date Diagnosed Date Arthritis of carpometacarpal (CMC) joint of righ t thumb 06/20/2025 Class 2 severe obesity with serious comorbidity and body mass index (BMI) of 37.0 to 37.9 in adult 05/04/2025 Abnormal uterine bleeding (AUB) 01/19/2022 Overview (07/05/2024): Last Assessment & Plan: She will return for Mirena IUD Merdaxz-eu-kgb 04/12/2013 Osteoarthritis of hip 01/29/2012 Overview (07/05/2024): L>R Pilonidal cyst 03/28/2008 Allergic rhinitis 02/06/2006 Encounters Date Type Department Care Team Description 06/27/2025 1:30 PM EDT Office Visit Bariatric Surgery [address] [phone] Nikky Duarte MD Class 2 obesity due to excess calories with body mass index (BMI) of 35.0 to 35.9 in adult, unspecified whether serious comorbidity present (Primary Dx) 06/20/2025 9:00 AM EDT Office Visit Orthopedic Surgery [facility] [address] [phone] Jason Badillo MD Arthritis of carpometacarpal (CMC) joint of right thumb (Primary Dx) 06/19/2025 Telephone Bariatric Surgery [facility] [address] [phone] Nikky Duarte MD 06/12/2025 9:00 AM EDT Office Visit Orthopedic Surgery [place] [address] [phone] Litzy Cho PA Arthritis of carpometacarpal (CMC) joint of right thumb (Primary Dx) 06/01/2025 7:40 AM EDT - 06/01/2025 11:59 PM EDT Hospital Encounter Radiology Department - [address] [phone] Encounter for screening mammogram for breast cancer Discharge Disposition: Home or Self Care 05/22/2025 Telephone Bariatric Surgery [address] [phone] Nikky Duarte MD 05/22/2025 Telephone Bariatric Surgery - [address] [phone] Nikky Duarte MD 05/04/2025 8:00 AM EDT Nutrition Bariatric Surgery - [address] [phone] Radha Mon, CARI Class 2 severe obesity with serious comorbidity and body mass index (BMI) of 37.0 to 37.9 in adult, unspecified obesity type (CMS/[facility] V24, CMS/[facility] V28) (Primary Dx) 04/24/2025 Telephone Bariatric Surgery - [address] [phone] Nikky Duarte MD from Last 3 Months Immunizations Immunization Administration Dates Next Due H1N1 Inj Preservative [...] ration; COMMENT: R 2nd - required surgeries Adwgqin-ds-jvu 04/12/2013 DX:Qiaekcz-yc-zq o Snores GERD (gastroesophageal reflux disease) Arthritis [...] 12/22/2024 3: 52 PM EDT Obstetrics History Para Term AB IAB SAB Ectopic Multiple Livin g Live Births 1 1 1 1 Date Outcome GA Total Labor Labor/2nd/3rd Weight Sex Type Anes PTL Jada A1 A5 Name Clin Term Last Filed Vital Signs Vital Sign Reading Time Taken Comments Blood Pressure 125/76 06/27/2025 1:36 PM EDT Pulse 74 06/27/2025 1:36 PM EDT Temperature 36.6 C (97.8 F) 06/27/2025 1:36 PM EDT Respiratory Rate 17 02/20/2025 8:03 AM EDT Oxygen Saturation 97% 02/02/2025 8:22 PM EDT Inhaled Oxygen Concentration - - Weight 97.1 kg (214 lb) 06/27/2025 1:36 PM EDT Height 165.1 cm (5' 5 ) 06/27/2025 1:36 PM EDT Body Mass Index 35.61 06/27/2025 1:36 PM EDT Plan of Treatment Upcoming Encounters Date Type Department Care Team (Late st Contact Info) Description 08/07/2025 8:00 AM EST Nutrition Bariatric Surgery - [place] 175 [facility] [address] [place] [address] Radha Mon, RD 175 [facility] [address] [place] [address] Scheduled Procedures Name Priority Associated Diagnoses Date/Ti me ARTHROPLASTY CARPOMETACARPAL Arthritis of carpometacarpal (CMC) joint of right thumb Health Maintenance Due Date Last Done Comments Hepatitis B Vaccines (1 of 3 - 19+ 3-dose series) 12/30/1990 Pneumococcal Vaccine: 50+ Years (1 of 1 - PCV) 12/30/2021 HIV Screening 09/13/2022 Hepatitis C Screening 09/13/2022 Social Influencers of Health Screening 09/13/2022 Depression Screening 10/05/2024 Influenza Vaccine (#1) 2025 4, 07/03/2023, 06/26/2022, Additional history exists Hypertension/CHF/CAD Annual BMP Blood Test 02/02/2026 02/02/2025, 05/12/2024, 05/12/2024 Cervical Cancer Screening: HPV 01/13/2027 01/13/2022 Breast Cancer Screening 06/01/2027 06/01/20 25, 05/20/2024, 05/20/2024, Additional history exists Colorectal Cancer Screening: Colonoscopy 12/24/2027 12/23/2024 Cholesterol Screening (Lipid Panel) 11/18/2029 11/18/2024, 05/12/2024, 05/12/2024 DTaP,Tdap,and Td Vaccines (4 - Td or Tdap) 05/12/2034 05/12/2024, 04/19/2022, 05/18/2007 RSV Immunization Adult Patients (1 - 1-dose 75+ series) 12/30/2046 COVID-19 Vaccine Completed 07/19/2024, , 06/26/2022, Additional [...] Procedure Name Priority Date/Time Associated Diagnosis Comments MG MAMMO DIGITAL SCREENING W MERLIN BILAT Routine 06/01/2025 8:00 AM EDT Encounter for screening mammogram for breast cancer BASIC METABOLIC PANEL STAT 02/02/2025 4:43 PM EDT COLONOSCOPY Routine 12/23/2024 2:44 PM EDT Colon cancer screening LIPID PANEL WITH REFLEX TO DIRECT LDL Routine 11/18/2024 9:17 AM EST High cholesterol HM HPV Routine 01/13/2022 from Last 3 Months or Most Recently Relevant to Health Maintenance Results * MG Mammo Digital Screening w Merlin bilat (06/01/2025 8:00 AM EDT) Anatomical Region Laterality Modality Breast Bilateral Mammography 06/01/2025 6:47 PM EDT Impressions 06/01/2025 6:50 PM EDT No mammographic evidence for malignancy. BI-RADS CATEGORY: 1 - NEGATIVE RECOMMENDATION: Screening bilateral mammogram is recommended in 1 year. Mammo Location: [facility], [address] [place] [address], [id number], . -------- FINAL REPORT -------- Dictated By: Lillie Acosta Dictated Date: 06/01/2025 18:47 ET Assigned Physician: Lillie Acosta Reviewed and Electronically Signed By: Lillie Acosta Signed Date: 06/01/2025 18:50 ET Workstation ID: [id number] Transcribed By: Self Edit Transcribed Date: 06/01/2025 18:47 ET Narrative 06/01/2025 6:50 PM EDT Bilateral screening mammogram. CLINICAL: 54 years old, Female, routine annual exam. COMPARISON: Prior mammograms, latest from 05/20/2024. TECHNIQUE: Bilateral MLO and CC views were obtained digitally with 2 D C views and 3-D mammogram (digital breast tomosynthesis). Computer-aided detection was utilized in evaluation of this exam (CAD). FINDINGS: There is no evidence of suspicious mass or architectural distortion. No worrisome calcifications are evident. There has been no significant change from prior exam(s). BREAST DENSITY: B - There are scattered areas of fibroglandular density. Procedure Note Lillie Acosta MD - 06/01/2025 Bilateral screening mammogram. CLINICAL: 54 years old, Female, routine annual exam. COMPARISON: Prior mammograms, latest from 05/20/2024. TECHNIQUE: Bilateral MLO and CC views were obtained digitally with 2 D Cviews and 3-D mammogram (digital breast tomosynthesis). Computer-aideddetection was utilized in evaluation of this exam (CAD). FINDINGS: There is no evidence of suspicious mass or architectural distortion. Noworrisome calcifications are evident. There has been no significantchange from prior exam(s). BREAST DENSITY: B - There are scattered areas of fibroglandular density. IMPRESSION: No mammographic evidence for malignancy. BI-RADS CATEGORY: 1 - NEGATIVE RECOMMENDATION: Screening bilateral mammogram is recommended in 1 year. Mammo Location: [facility], [address] [place] [address], [address], . -------- FINAL REPORT -------- Dictated By: Lillie Acosta Dictated Date: 06/01/2025 18:47 ET Assigned Physician: iLllie Acosta Reviewed and Electronically Signed By: Lillie Acosta Signed Date: 06/01/2025 18:50 ET Workstation ID: [id number] Transcribed By: Self Edit Transcribed Date: 06/01/2025 18:47 ET Brian Graham NP IMG BI PROCEDURES Final Resu lt * Basic metabolic panel (02/02/2025 4:43 PM EDT) Sodium 138 133 - 145 mmol/L LAB CHEMISTRY METHOD 02/02/2025 5:25 PM [facility] Potassium 4.5 3.5 - 5.5 mmol/L LAB CHEMISTRY METHOD 02/02/2025 5:25 PM [facility] Chloride 106 96 - 110 mmol/L LAB CHEMISTRY METHOD 02/02/2025 5:25 PM [facility] CO2 29 21 - 32 mmol/L LAB CHEMISTRY METHOD 02/02/2025 5:25 PM [facility] Anion Gap 3 3 - 11 LAB CHEMISTRY METHOD 02/02/2025 5:25 PM [facility] Glucose 87 70 - 100 mg/dL LAB CHEMISTRY METHOD 02/02/2025 5:25 PM [facility] BUN 14 5 - 25 mg/dL LAB CHEMISTRY METHOD 02/02/2025 5:25 PM [facility] Creatinine 0.78 0.50 - 1.10 mg/dL LAB CHEMISTRY METHOD 02/02/2025 5:25 PM [facility] eGFR 91 >=60 mL/min/1. 73m2 LAB CHEMISTRY METHOD 02/02/2025 5:25 PM [facility] Comment:Calculation based on the Chronic Kidney Disease Epidemiology Collaboration (CKD-EPI) equation refit without adjustment for race. BUN/Creatinine Ratio 17.9 LAB CHEMISTRY METHOD 02/02/2025 5:25 PM EDT [facility] Calcium 9.7 8.5 - 10.5 mg/dL LAB CHEMISTRY METHOD 02/02/2025 5:25 PM EDT [facility] Blood Venous blood specimen / Unknown Venipuncture / Unknown 02/02/2025 4:43 PM EDT 02/02/2025 4:51 PM EDT us Joseph Pham DO LAB BLOOD ORDERABLES Final Res ult [facility]) [facility] [address] [place] [address], [place] [phone] * COLONOSCOPY Anesthesia - MAC; [facility] ENDOSCOPY (12/23/2024 2:44 PM EDT) Anatomical [...] pathology results. Narrative 12/23/2024 2:45 PM EDT [facility] GI Patient Name: Carmen Chapman Procedure Date: 12/23/2024 2:22 PM Date of : 1970 Age: 53 Gender: Female Note Status: Finalized Attending MD: Rosa Nunez DO, [id number] Procedure Date No Time: 12/23/2024 Procedure: Colonoscopy Indications: Screening for colorectal malignant neoplasm Providers: Rosa DO Nicolas Nunez MD: Jimi Newell MD Medicines: Monitored Anesthesia [...] the physician, the nurse, the anesthesiologist, the hospital coordinator and the field operations technician in the pre-procedure area in the [...] diverticular bleeding. Procedure Code(s): --- Professional --- 28417, Colonoscopy, flexible; with removal of tumor(s), polyp(s), or other lesion(s) by snare technique 97087, 59, Colonoscopy, flexible; with biopsy, single or multiple Diagnosis Code(s): --- Professional --- Z12.11, Encounter for screening for malignant neoplasm of colon K64.9, Unspecified hemorrhoids D12.5, Benign neoplasm of sigmoid colon D12.3, Benign neoplasm of transverse colon (hepatic flexure or splenic flexure) CPT copyright 2020 [employer]. All rights reserved. The codes documented in this report are preliminary and upon brass bobbin winder review may be revised to meet current compliance requirements. ROSA Nunez DO 12/23/2024 2:45:00 PM This report has been signed electronically.Rosa Nunez DO Number of Addenda: 0 Note Initiated On: 12/23/2024 2:22 PM Scope Withdrawal Time: 0 hours 7 minutes 44 seconds Scope In: 2:29:22 PM Scope Out: 2:42:51 PM Endoscopy Department at [facility] - [address] [place] [phone] Procedure Note Rosa Nunez DO - 12/23/2024 [facility] GI Patient Name: Carmen Chapman Procedure Date: 12/23/2024 2:22 PM Date of : 1970 Age: 53 Gender: Female Note Status: Finalized Attending MD: Rosa Nunez DO, [id number] Procedure Date No Time: 12/23/2024 Procedure: Colonoscopy [...] the physician, the nurse, the anesthesiologist, the hospital coordinator and thetechnician in the pre-procedure area in [...] diverticular bleeding. Procedure Code(s): --- Professional --- 37486, Colonoscopy, flexible; with removal of tumor(s), polyp(s), or other lesion(s) by snare technique [id number], 59, Colonoscopy, flexible; with biopsy,single or multiple Diagnosis Code(s): --- Professional --- Z12.11, Encounter for screening for malignantneoplasm of colon K64.9, Unspecified hemorrhoids D12.5, Benign neoplasm of sigmoid colon D12.3, Benign neoplasm of transverse colon (hepatic flexure or splenic flexure) CPT copyright 2020 [employer]. All rights reserved. The codes documented in this report are preliminary and upon brass bobbin winder reviewmay be revised to meet current compliance requirements. ROSA Nunez DO 12/23/2024 2:45:00 PM This report has been signed electronically.Rosa Nunez DO Number of Addenda: 0 Note Initiated On: 12/23/2024 2:22 PM Scope Withdrawal Time: 0 hours 7 minutes 44 seconds Scope In: 2:29:22 PM Scope Out: 2:42:51 PM Endoscopy Department at [facility] - [address] [place] [phone] IMPRESSION: - Hemorrhoids found on perianal exam. [...] colonoscopy for surveillance based on pathology results. Rosa Nunez DO GI~PROCEDURE ORDERABLES Final Re sult * (ABNORMAL) Lipid panel with reflex to direct LDL (11/18/2024 9:17 AM EST) Cholesterol 197 0 - 200 mg/dL LAB CHEMISTRY METHOD 11/18/2024 12:44 PM EST [facility] Triglycerides 60 0 - 150 mg/dL LAB CHEMISTRY METHOD 11/18/2024 12:44 PM EST [facility] HDL 66 >=40 mg/dL LAB CHEMISTRY METHOD 11/18/2024 12:44 PM EST [facility] LDL Calculated 119(H) 0 - 100 mg/dL LAB CHEMISTRY METHOD 11/18/2024 12:44 PM EST [facility] VLDL Cholesterol Enrique 12 mg/dL LAB CHEMISTRY METHOD 11/18/2024 12:44 PM EST [facility] Non HDL Chol. (LDL+VLDL) 131 <145 mg/dL LAB CHEMISTRY METHOD 11/18/2024 12:44 PM EST [facility] Chol/HDL Ratio 3.0 0.0 - 4.4 LAB CHEMISTRY METHOD 11/18/2024 12:44 PM EST [facility] Blood Venous blood specimen / Unknown Venipuncture / Unknown 11/18/2024 9:17 AM EST 11/18/2024 9:17 AM EST Jimi Newell MD LAB BLOOD ORDERABLES Final Resu lt [facility] [address] [place] [address], * Cervical Cancer Screening: HPV (01/13/2022) Cervical Cancer Screening: HPV negative, abstracted Historical Provider HEALTH MAINTENANCE Final Result from Last 3 Months or Most Recently Relevant to Health [place] [address] [facility] Care Teams Die Casting Machine Setter Relationship Specialty Start Date End Date Jimi Newell MD [address] [place] [phone] PCP - General Internal Medicine 03/26/21
== END 2025-07-04 10:38 | disposition home or self-care (01) ==
LOC: HO.HWSM 09:01
PROVIDERS: PCP Nurse Practitioner Family; Visit Provider Advanced Practice Midwife
DX: Z01.419 Encounter for gynecological examination (general) (routine) without abnormal findings (principal); Z97.5 Presence of (intrauterine) contraceptive device; N95.1 Menopausal and female climacteric states
CPT/HCPCS: 99386; 99459

== ENCOUNTER 2025-07-04 09:01 | Outpatient (REF) | payer BC, SELFPAY ==
--- OUTSIDE RECORDS SUMMARY | 2025-07-04 11:03 | XMS_ITS | Clinical Summary ---
Author Organization [facility] Address [address] [place] [id number] Phone [email or web address] Care Team Providers Care Business Programmer Name Role Phone Unavailable Primary Care Provider [...] PM CDT Legal Sex Female 8:47 AM DEPARTMENT MGR Gender Identity Female 07/01/2021 1:48 PM CDT [...] (2 - Td or Tdap) 05/18/2017 05/18/2007 Pneumococcal: 50+ Years (1 of 1 - PCV) 12/30/2021 Zoster Immunization (1 of 2) 12/30/2021 Breast Cancer Screening 05/07/2023 05/07/2021 Covid-19 Immunization (2 - season) 2025 12/28/2020 Influenza Immunization (#1) 06/05/202507/05, 07/01/2015, 07/16/2014, [...]
== END 2025-07-04 09:02 | disposition home or self-care (01) ==
LOC: HO.LNP 09:01
PROVIDERS: PCP Nurse Practitioner Family; Visit Provider Advanced Practice Midwife
DX: Z13.89 Encounter for screening for other disorder (principal)

== ENCOUNTER 2025-07-06 08:52 | Outpatient (REF) | payer BC, SELFPAY ==
--- OUTSIDE RECORDS SUMMARY | 2025-07-06 09:25 | XMS_ITS | Encounter Summary ---
Author Organization [facility] Address [address] [place] [address] Care Team Providers Care Reference Test Clerk Name Role Phone Jimi Newell MD Primary Care Provider [phone] Reason for Visit * Reason Onset Date Comments Med Refill 06/19/2025 Zepbound Encounter Details Date Type Department Care Team (Late st Contact Info) Description 06/19/2025 Telephone Bariatric Surgery - [address] [place] [address] Nikky Duarte MD [address] [place] [phone] Social History Tobacco Use Types Packs/Day [...] 8:00 AM EST Nutrition Bariatric Surgery - [place] [address] [phone] Radha Mon, RD [address] [phone] Scheduled Procedures Name Priority Associated Diagnoses Date/Ti me ARTHROPLASTY CARPOMETACARPAL Arthritis of carpometacarpal (CMC) joint of right thumb documented as of this encounter Visit Diagnoses Not on filedocumented in this encounter Care Teams Reference Test Clerk Relationship Specialty Start Date End Date Jimi Newell MD [address] [place] [phone] PCP - General Internal Medicine 03/26/21 documented as of this encounter
--- OUTSIDE RECORDS SUMMARY | 2025-07-06 09:25 | XMS_ITS | Clinical Summary ---
Author Organization [facility] Address [address] [place] [address] Phone Care Team Providers Care Technology Education Instructor Name Role Phone Jimi Newell MD Primary Care Provider [phone] Allergies Active Allergy Reactions Criticality Noted Date [...] Plan: She will return for Mirena IUD [id number] 04/12/2013 Osteoarthritis of hip 01/29/2012 Overview (07/05/2024): L>R Pilonidal cyst 03/28/2008 Allergic rhinitis 02/06/2006 Encounters Date Type Department Care Team Description 06/27/2025 1:30 PM EDT Office Visit Bariatric Surgery [address] [phone] Nikky Duarte MD Class 2 obesity due to excess calories with body mass index (BMI) of 35.0 to 35.9 in adult, unspecified whether serious comorbidity present (Primary Dx) 06/20/2025 9:00 AM EDT Office Visit Orthopedic Surgery [facility] [address] [phone] Jason Badillo MD Arthritis of carpometacarpal (CMC) joint of right thumb (Primary Dx) 06/19/2025 Telephone Bariatric Surgery [facility] [address] [phone] Nikky Duarte MD 06/12/2025 9:00 AM EDT Office Visit Orthopedic Surgery [place] [address] [address] Litzy Cho PA Arthritis of carpometacarpal (CMC) joint of right thumb (Primary Dx) 06/01/2025 7:40 AM EDT - 06/01/2025 11:59 PM EDT Hospital Encounter Radiology Department - [address] [phone] Encounter for screening mammogram for breast cancer Discharge Disposition: Home or Self Care 05/22/2025 Telephone Bariatric Surgery [address] [phone] Nikky Duarte MD 05/22/2025 Telephone Bariatric Surgery - [address] [phone] Nikky Duarte MD 05/04/2025 8:00 AM EDT Nutrition Bariatric Surgery - [address] [phone] Radha Mon, CARI Class 2 severe obesity with serious comorbidity and body mass index (BMI) of 37.0 to 37.9 in adult, unspecified obesity type (CMS/[facility] V24, CMS/[facility] V28) (Primary Dx) 04/24/2025 Telephone Bariatric Surgery - [address] [phone] Nikky Duarte MD from Last [...] ration; COMMENT: R 2nd - required surgeries Pjvrkhn-ej-hfv 04/12/2013 DX:Dkeiefy-gu-sg o Snores GERD (gastroesophageal reflux disease) Arthritis [...] 8:00 AM EST Nutrition Bariatric Surgery - [place] [address] [facility] [address] [place] [address] Radha Mon, RD 175 [facility] [address] [place] [address] Scheduled Procedures Name Priority Associated [...] 2025 , 07/03/2023, 06/26/2022, Additional history exists Cervical Cancer Screening: HPV 01/13/2027 01/13/2022 Breast [...] Encounter for screening mammogram for breast cancer COLONOSCOPY Routine 12/23/2024 2:44 PM EDT Colon [...] is recommended in 1 year. Mammo Location: [place] [facility], [address] [place] [address], [address], . -------- FINAL REPORT -------- Dictated By: Lillie Acosta Dictated Date: 06/01/2025 18:47 ET Assigned Physician: Lillie Acosta Reviewed and Electronically Signed By: Lillie Acosta Signed Date: 06/01/2025 18:50 ET Workstation ID: [id number] Transcribed By: Self Edit Transcribed Date: 06/01/2025 [...] is recommended in 1 year. Mammo Location: [place] [facility], [address] [place] [address], [address], . -------- FINAL REPORT -------- Dictated By: Lillie Acosta Dictated Date: 06/01/2025 18:47 ET Assigned Physician: Lillie Acosta Reviewed and Electronically Signed By: Lillie Acosta Signed Date: 06/01/2025 18:50 ET Workstation ID: [id number] Transcribed By: Self Edit Transcribed Date: 06/01/2025 18:47 ET Brian Graham NP IMG BI PROCEDURES Final Resu lt * COLONOSCOPY Anesthesia - MAC; [facility] ENDOSCOPY (12/23/2024 2:44 PM EDT) [...] pathology results. Narrative 12/23/2024 2:45 PM EDT [facility] GI Patient Name: Carmen Chapman Procedure Date: 12/23/2024 2:22 PM Date of : 1970 Age: 53 Gender: Female Note Status: Finalized Attending MD: Rosa Nunez DO, [id number] Procedure Date No Time: 12/23/2024 Procedure: Colonoscopy [...] the physician, the nurse, the anesthesiologist, the marketing database consultant and the lead quality control technician in the pre-procedure area in the [...] diverticular bleeding. Procedure Code(s): --- Professional --- 58007, Colonoscopy, flexible; with removal of tumor(s), polyp(s), or other lesion(s) by snare technique 07143, 59, Colonoscopy, flexible; with biopsy, single or multiple Diagnosis Code(s): --- Professional --- Z12.11, Encounter for screening for malignant neoplasm of colon K64.9, Unspecified hemorrhoids D12.5, Benign neoplasm of sigmoid colon D12.3, Benign neoplasm of transverse colon (hepatic flexure or splenic flexure) CPT copyright 2020 [employer]. All rights reserved. The codes documented in this report are preliminary and upon pulley maintainer review may be revised to meet current compliance requirements. ROSA Nunez DO 12/23/2024 2:45:00 PM This report has been signed electronically.Rosa Nunez DO Number of Addenda: 0 Note Initiated On: 12/23/2024 2:22 PM Scope Withdrawal Time: 0 hours 7 minutes 44 seconds Scope In: 2:29:22 PM Scope Out: 2:42:51 PM Endoscopy Department at [facility] - [address] [place] [phone] Procedure Note Rosa Nunez DO - 12/23/2024 [facility] GI Patient Name: Carmen Chapman Procedure Date: 12/23/2024 2:22 PM Date of : 1970 Age: 53 Gender: Female Note Status: Finalized Attending MD: Rosa Nunez DO, [id number] Procedure Date No Time: 12/23/2024 Procedure: Colonoscopy [...] the physician, the nurse, the anesthesiologist, the marketing database consultant and thetechnician in the pre-procedure area in [...] diverticular bleeding. Procedure Code(s): --- Professional --- 30213, Colonoscopy, flexible; with removal of tumor(s), polyp(s), or other lesion(s) by snare technique 88243, 59, Colonoscopy, flexible; with biopsy,single or multiple Diagnosis Code(s): --- Professional --- Z12.11, Encounter for screening for malignantneoplasm of colon K64.9, Unspecified hemorrhoids D12.5, Benign neoplasm of sigmoid colon D12.3, Benign neoplasm of transverse colon (hepatic flexure or splenic flexure) CPT copyright 2020 [employer]. All rights reserved. The codes documented in this report are preliminary and upon pulley maintainer reviewmay be revised to meet current compliance requirements. ROSA Nunez DO 12/23/2024 2:45:00 PM This report has been signed electronically.Rosa Nunez DO Number of Addenda: 0 Note Initiated On: 12/23/2024 2:22 PM Scope Withdrawal Time: 0 hours 7 minutes 44 seconds Scope In: 2:29:22 PM Scope Out: 2:42:51 PM Endoscopy Department at [facility] - [address] [place] [phone] IMPRESSION: - Hemorrhoids found on perianal exam. [...] mg/dL LAB CHEMISTRY METHOD 11/18/2024 12:44 PM [facility] Triglycerides 60 0 - 150 mg/dL LAB CHEMISTRY METHOD 11/18/2024 12:44 PM [facility] HDL 66 >=40 mg/dL LAB CHEMISTRY METHOD 11/18/2024 12:44 PM [facility] LDL Calculated 119(H) 0 - 100 mg/dL LAB CHEMISTRY METHOD 11/18/2024 12:44 PM [facility] VLDL Cholesterol Enrique 12 mg/dL LAB CHEMISTRY METHOD 11/18/2024 12:44 PM [facility] Non HDL Chol. (LDL+VLDL) 131 <145 mg/dL LAB CHEMISTRY METHOD 11/18/2024 12:44 PM [facility] Chol/HDL Ratio 3.0 0.0 - 4.4 LAB CHEMISTRY METHOD 11/18/2024 12:44 PM [facility] Blood Venous blood specimen / Unknown Venipuncture / Unknown 11/18/2024 9:17 AM EST 11/18/2024 9:17 AM EST Jimi Newell MD LAB BLOOD ORDERABLES Final Resu lt [facility] [address] [place] [address], * Cervical Cancer Screening: HPV (01/13/2022) Pathologist Critical [facility] hospital Cervical Cancer Screening: HPV negative, abstracted Historical Provider HEALTH MAINTENANCE Final Result from Last 3 Months or Most Recently Relevant to Health Maintenance Insurance [facility] Care Teams Technology Education Instructor Relationship Specialty Start Date End Date Jimi Newell MD [address] [place] [address] PCP - General Internal Medicine 03/26/21
--- OUTSIDE RECORDS SUMMARY | 2025-07-06 09:25 | XMS_ITS | Patient Health Record ---
Author Organization [facility] Address [address] [facility] [place] [address] Care Team Providers Care Brand Inspector Name Role Phone Reece PIZANO, Nate Primary Care Provider Diane Amor Unavailable [phone] Allergies Allergen (clinical drug ingredient) Drug/Non Drug [...] Status Risk Notes Problem Acquired hallux valgus (13874826) Hallux valgus (acquired), right foot (M20.11) Active confirmed Plan Of Treatment Pending Test Test Name Order Date ,[id number] TENDON SHEATH/LIGAMENT 0 02/12/2021,[id number] TENDON SHEATH/LIGAMENT 0 06/12/2021 Insurance Providers Payer Name Payer Address Payer Phone Subscriber Number Group Number Insured Name Patient Relationship to Insured Coverage Start Date Coverage End Date [facility] [address] [place] [address] [id number] Kusum Mckeon Self - patient is the insured Medical (General) History Medical History History ICD Code Arthritis Back,Hip,and Knee pain Broken bones Chicken pox Joint/ Bone implants/screws Surgical History Surgery Date(Month/Year) Hip Replacement 2012 Knee surgery 1986,1987,1988 [place] teeth extraction 1986 Severed tendon repair-right index finger 2008 Anal Fistula Surgery 2013 [place] 2011
--- OUTSIDE RECORDS SUMMARY | 2025-07-06 09:25 | XMS_ITS | Clinical Summary ---
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
[2025-07-06 10:23] LABS: Appearance Urine Clear; Glucose Urine UA Negative (Negative); PH 5.0 (5.0-9.0); Specific Gravity - Urine >= 1.030 (1.005-1.025); UMIC TRIGGER UACC YES
[2025-07-06 10:36] LABS: MANUAL DIFF FLAG NO
[2025-07-06 10:45] LABS: Hematocrit 41.4 % (37.0-47.0); Hemoglobin 14.1 g/dl (12.0-16.0); Imm Gran Abs Auto 0.01 X10*3/uL (0.00-0.03); Imm Gran Pct Auto 0.1 % (0.0-0.4); Lymphocytes Absolute Auto 2.3 X10*3/uL (1.2-4.9); Mean Corpuscular HGB Conc 34.1 g/dl (31.0-35.0); Mean Corpuscular Hemoglobin 30.4 pg (27.0-33.0); Mean Corpuscular Volume 89.2 fL (80.0-98.0); NRBC Abs Auto 0.000 X10*3/uL (0.0-0.012); NRBC Pct Auto 0.0 /100WBC (0.0-0.2); Platelet Count 242 X10*3/uL (160-400); Red Blood Count 4.64 X10*6/uL (4.20-5.50); White Blood Count 7.1 X10*3/uL (4.8-10.8)
[2025-07-06 10:56] LABS: UACC Culture Trigger YES
[2025-07-06 11:15] LABS: Alanine Aminotransferase 19 U/L (0-31); Albumin Level 4.4 g/dL (3.5-5.0); Alkaline Phosphatase 100 U/L (39-117); Anion Gap 11 (12-20); Aspartate Amino Transferase 27 U/L (5-31); Blood Urea Nitrogen 15 mg/dL (9-16); Calcium 9.6 mg/dL (8.4-10.2); Carbon Dioxide 25 mmol/L (22-29); Chloride 109 mmol/L (96-108); Cholesterol 174 mg/dL (<200); Estimated Glomerular Filt Rate > 60; HDL Cholesterol 44 mg/dL (>40); Potassium 4.3 mmol/L (3.3-5.1); Sodium 141 mmol/L (135-145); Total Protein 7.2 g/dL (6.5-8.0); Triglycerides 72 mg/dL (<150)
[2025-07-07 04:43] LABS: Follicle Stimulating Hormone 94.1 mIU/mL
== END 2025-07-06 08:53 | disposition home or self-care (01) ==
LOC: HO.HMGCLDS 08:52
PROVIDERS: PCP Nurse Practitioner Family; Referring Provider Advanced Practice Midwife; Visit Provider Nurse Practitioner Family
DX: I10 Essential (primary) hypertension (principal); N95.1 Menopausal and female climacteric states; Z97.5 Presence of (intrauterine) contraceptive device
CPT/HCPCS: 36415; 80053; 80061; 81001; 82306; 83001; 84443; 85025; 87086

== ENCOUNTER 2025-07-14 08:48 | Outpatient (AMB) | payer BC, SELFPAY ==
--- NOTE | 2025-07-14 08:50 | MHC.OFFVIS ---
Vital Signs 07/14/25 08:52 Height 5 ft 5 in Weight 208 lb BMI 34.6 BP 136/72 Intake Visit Reasons: repeat pap/no charge/fsh talk Intake Note: Patient her for pap only Environmental Planner Required: No Information Interpreted: non-clinical & clinical Multifocal Button Inspector: Multifocal Button Inspector Present (Deborah CASTRO) Accompanied by: Self / Same As Patient Allergies acetaminophen (From Hycomine Compound) Adverse Reaction (Verified 07/14/25 08:58) Rash acyclovir Adverse Reaction (Verified 07/14/25 08:58) blister chlorpheniramine (From Hycomine Compound) Adverse Reaction (Verified 07/14/25 08:58) Rash erythromycin base (From Ilosone) Adverse Reaction (Verified 07/14/25 08:58) rash hydrocodone (From Hycomine Compound) Adverse Reaction (Verified 07/14/25 08:58) Rash Penicillins Adverse Reaction (Verified 07/14/25 08:58) rash phenylephrine (From Hycomine Compound) Adverse Reaction (Verified 07/14/25 08:58) Rash promethazine (From Phenergan) Adverse Reaction (Verified 07/14/25 08:58) rash mysteclin Adverse Reaction (Uncoded 07/14/25 08:58) rash Medication List - Last Reconciled 07/14/25 by Linda Tafoya CNM amlodipine 5 mg PO DAILY celecoxib (Celebrex) 200 mg PO DAILY levonorgestrel (Mirena) intrauterine omeprazole 40 mg PO ONCE ondansetron HCl 4 mg PO Q8H PRN tirzepatide (weight loss) (Zepbound) 2.5 mg subcut QWEEK Post menopausal: Yes HPI HPI repeat pap/no charge/fsh talk: Details: Patient is here for visit to repeat Pap smear this is a no-charge visit to the patient. She was here for an annual exam within the last several days however the specimen did not get labeled so it had to be discarded so the patient has returned to get that done. She also had an FSH done as part of an evaluation about looking about where she is in her menopausal journey. She has a Mirena IUD that was placed at [facility] for a lengthy period of severe dysfunctional bleeding it has improved that complete I she would like the Mirena out if she does not need it anymore but she does not want to resume bleeding and risk that either. She works from home but has a very busy schedule and is also scheduled for hand surgery on the and we will be out for 6 weeks. I suggest that having a full discussion with the automotive lube technician about the risks of recurrent DUB and making an informed decision about taking out the IUD after that discussion might benefit her and this could be scheduled while she is out on her medical leave she will schedule it for sometime after the surgery so she is able to drive. [facility] Medical History HTN (hypertension) CPAP (continuous positive airway pressure) dependence Personal history of nicotine dependence Presence of Mirena IUD Hemorrhoids Fistula, anal Meningitis Tooth abscess Pilonidal cyst Surgical History History of left hip replacement Family History Mother High blood pressure Hyperthyroidism Fibromyalgia Kidney cancer, primary, with metastasis from kidney to other site Father No problems noted. 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 External Female Exam: normal external appearance and normal appearance of the urethra Speculum Exam - Vagina: normal appearance of the vagina and normal vaginal discharge Speculum Exam - Cervix: normal appearance of the cervix and Cervical os closed Results Reviewed Results Reviewed: [facility] [address] [place] [phone] Office Machinery Or Equipment Installer: Hardeep Garces M.D. Specimen Inquiry Name: Kusum Mckeon Age/Sex: 54/F : 1970 Unit#: [id number] Attend Dr: Brian Graham [facility] Re07/06/25 Status: DEP REF Location: .[facility] Disch: SPEC : [id number] BERYL: 07/06/25 STATUS: COMP REQ : [id number] RECD: 07/06/[address] [facility] [address]: Linda Tafoya CNM COMP: 07/07/25 ENTERED: 07/06/[address]: Brian Graham [facility] ORDERED: FSH Test Result Flag Reference FSH 94.1 mIU/mL Reference Range Follicular Phase 2.5-10.2 Mid-cycle Peak 3.1-17.7 Luteal Phase 1.5- 9.1 Postmenopausal 23.0-116.3 THIS TEST WAS PERFORMED AT: [facility] [address] [place] [phone] ABY REA MD END OF REPORT Assessment & Plan Assessment & Plan (1) Presence of Mirena IUD: Code(s): Z97.5 - Presence of (intrauterine) contraceptive device Category: Social Hx (2) Perimenopause: Comment: fsh=94.1. to be discussed w pt.//discussed further discussion to take place with automotive lube technician about benefits risks of removing Mirena with history of DUB prior to insertion. Code(s): N95.1 - Menopausal and female climacteric states Category: Medical (3) Cervical cancer screening: Comment: Specimen did not get labeled so Pap needs to be repeated... Patient to be called and informed reappointed, no charge,; Pap smear done 07/14/2025. Code(s): Z12.4 - Encounter for screening for malignant neoplasm of cervix Category: Medical Plan THIS IS A NO-CHARGE VISIT. Pap smear was done. Also discussed the FSH which is 94.1 certainly within the menopausal range though it was done with the presence of the Mirena. It is certainly points in the direction that she has in menopause. Patient does not want to resume any dysfunctional bleeding like she had 3 years ago which lingered on for quite some time in her recounting. I suggest discussing the pros and cons of removing the Mirena with the automotive lube technician and she since she is going to be out for her surgery this visit could be scheduled for when she is still out from surgery but possibly able to drive. Coding Level of Care Code Est Pt Level 3 (39682) Diagnoses Presence of Mirena IUD Z97.5 Perimenopause N95.1 Cervical cancer screening Z12.4 Comment THIS IS A NO-CHARGE VISIT.
[2025-07-14 08:52] VITALS: BP 136/72; BMI 34.6
== END 2025-07-14 09:42 | disposition home or self-care (01) ==
LOC: HO.HWS 08:48
PROVIDERS: PCP Nurse Practitioner Family; Visit Provider Advanced Practice Midwife
DX: Z97.5 Presence of (intrauterine) contraceptive device (principal); N95.1 Menopausal and female climacteric states; Z12.4 Encounter for screening for malignant neoplasm of cervix
CPT/HCPCS: 99213

== ENCOUNTER 2025-07-14 08:48 | Outpatient (REF) | payer BC, SELFPAY ==
[2025-07-14 13:37] LABS: Appearance Urine Turbid; Glucose Urine UA Negative (Negative); PH 5.5 (5.0-9.0); Specific Gravity - Urine >= 1.030 (1.005-1.025); UMIC TRIGGER UACC YES
[2025-07-14 14:05] LABS: Other Crystals Urine Present
== END 2025-07-14 08:49 | disposition home or self-care (01) ==
LOC: HO.HMGCLDS 08:48
PROVIDERS: PCP Nurse Practitioner Family; Visit Provider Nurse Practitioner Family
DX: N95.1 Menopausal and female climacteric states (principal); R82.90 Unspecified abnormal findings in urine; Z97.5 Presence of (intrauterine) contraceptive device; Z12.4 Encounter for screening for malignant neoplasm of cervix
CPT/HCPCS: 81001; 87086

== ENCOUNTER 2025-07-14 09:45 | Outpatient (REF) | payer BC, SELFPAY | END 2025-07-14 09:46 | disposition home or self-care (01) | LOC: HO.LNP 09:45 | PROVIDERS: Visit Provider Advanced Practice Midwife | DX: Z01.419 Encounter for gynecological examination (general) (routine) without abnormal findings (principal) | CPT/HCPCS: 87626; 88175 ==

== ENCOUNTER 2025-08-17 10:08 | Outpatient (AMB) | payer BC, SELFPAY ==
--- OUTSIDE RECORDS SUMMARY | 2025-08-16 14:00 | XMS_ITS | Encounter Summary ---
Author Organization [facility] Address [address] [place] [address] Care Team Providers Care Gate Clerk Name Role Phone Jimi Newell MD Primary Care Provider [phone] Reason for Visit * Therapy (Routine) - Authorized Specialty Diagnoses / Procedures Referred By Kvng brown Referred To Contact Occupational Therapy Diagnoses Post-operative state Jason Badillo MD [address] [place] [address] Phone: tel: fax: [facility] [address] [address] Phone: tel: fax: Referral ID Status Reason Start Date Expiration Date Visits Requested Visits Authorized [id number] Authorized Consult and Treat 08/08/2025 08/08/2026 6 6 Encounter Details Date Type Department Care Team (Latest Contact Info) Description 08/16/2025 2:00 PM EST Evaluation [facility] [address] [phone] Mike Padron OT Arthritis of carpometacarpal (CMC) joint of right thumb (Primary Dx); Post-operative state Social History Tobacco Use Types Packs/Day Years Used Date Smoking Tobacco: Former Cigarettes 0.3 Q uit: 06/05/2021 Smokeless Tobacco: Never Alcohol [...] as of this encounter Progress Notes * Mike Padron, OT - 08/16/2025 2:00 PM EST Images from the original note were not included. [facility] - Outpatient OCCUPATIONAL THERAPY EVALUATION Date: 08/16/2025 Visit Number: 1 Patient Name: Kusum Mckeon : 1970 Age: 54 y.o. Gender: female Diagnosis: ICD-10-CM ICD-9-CM 1. Arthritis of carpometacarpal (CMC) joint of right thumb M18.11 716.94 2. 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 has a past surgical history that includes Knee surgery; [place] tooth extraction; and Hip Arthroplasty (Left). is allergic to acyclovir, ampicillin, erythromycin estolate, promethazine hcl, amphotericin b, ibuprofen, and naproxen sodium. Precautions: Post-op weeks 1-2 -Keep dressing clean dry and intact -active finger ROM of the 2-5 digits with flexion/extension of fingers -postoperative thumb spica splint or cast Postop weeks 2-6 -Short opponens thumb splint worn at all times except for hygiene and active and passive self rangeof motion exercises: wrist flexion/extension, thumb circumduction, interphalangeal joint flexion and extension -Support thumb CMC joint with ROM exercise -wear brace at all times except exercise and hygiene -may begin scar massage Postop weeks 7-9 -continue previous exercise -may begin unrestricted passive ROM with continued support of CMC joint -wean from brace as tolerated -continue scar massage/desensitization modalities -week 8 begin gentle strengthening Postop weeks 10-12 -resume normal activities -continue strengthening -use of braces as needed for heavy lifting Is the patient at Risk for Falls: No Concurrent Services: No Concurrent Services History of Present Illness: Pt underwent R hand trapeziectomy 07/25/25. SUBJECTIVE Current Functional Limitations: Reported by Patient Unable to use R hand for tasks, unable ot return to work. 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 OBJECTIVE General Observations/Comments: Pt arrived wearing R thumb splint Cognition: WNL Dominant Hand: Right OT Shoulder ROM: B UE WNL OT Elbow/forearm ROM B UE WNL OT Wrist ROM Right Left AROM WRIST AROM PROM 65 Extension WNL WNL 60 Flexion WNL WNL OT Digit ROM L UE WNL R thumb MP flexion AROM 35 R thumb IP Flexion AROM 65 R thumb abd AROM 65 Able to oppose all digits, abl eot flex all digits to DPC Strength L UE 5/5 throughout R sh/elbow 5/5 R forearm/wrist NT due to recent surgery 5/5: Normal - Full ROM and tolerates maximum resistance Palpation: Proximal portion of incision sensitive to touch Sensation: Pt denies tingling/numbness Other Assessments: QuickDASH - Disability of Arm, Shoulder, or Hand Rate your ability to do the following activities in the past week: Open a tight or new jar: 4 - Severe difficulty Do heavy meter and service line inspector (eg wash daniels, wash floors) : 3 - Moderate difficulty Carry a shopping bag or briefcase : 3 - Moderate difficulty Wash your back : 2 - Mild difficulty Use a knife to cut food: 4 - Severe difficulty Recreational activities in which you take some force or impact through your arm, shoulder or hand (eg golf, hammering, tennis, etc) : 5 - Unable During the past week, to what extent has your arm, shoulder or hand problem interfered with your normal social activities with family, friends, neighbours or groups? : 5 - Extremely During the past week, were you limited in your work or other regular daily activities as a result of your arm, shoulder or hand problem? : 5 - Unable Rate the severity of the following symptoms in the last week: Arm, shoulder or hand pain : 3 - Moderate Tingling (pins and needles) in your arm, shoulder or hand : 1 - None During the past week, how much difficulty have you had sleeping because of the pain in your arm, shoulder or hand? : 1 - No difficulty QuickDASH Score QuickDASH Score: 56.82 Classification: Moderate Disability TREATMENT INTERVENTIONS: (This Date of Service) U/S: 3.3 MHz, 50% pulsed, 0.5 W/CM2 X 8 min to R incision to decrease scar adherence Therex: Pt performed thumb circumduction CW/CCW Thumb slides along 5th digit Gentle scar massage Issued stockinet under splint Educated pt to use fragrance free lotion or trial vit E capsules due to vit E lotion causing discomfort to skin Issued all for HEP Pain Reassessment: No pain at rest at end of session ASSESSMENT Kusum Mckeon is a 54 y.o. female presenting for outpatient occupational therapy with complaints ofPain and decreased use R hand. Significant clinical findings include: decreased AROM, decreased strength, impaired fx'l use. Skilled Occupational therapy is medically necessary to improve fx'l use R UE Rehabilitation Potential: Rehab Potential: Condition Has Potential to Improve Learning Needs: Were Patient Learning needs assessed Yes Learning Needs: Precautions, Plan of Care, and Rehabilitation Techniques and Procedures Learning Preferences: Explanation and Demonstration Barriers to Learning: No Barriers to Learning Patient Education: [x] Discussed, with patient and/or caregiver, the importance of therapy and appointment compliance in order to achieve goals in a timely manner. Education provided: role of OT/POC Education Provided To: Patient utilizing Explanation and Demonstration mode(s) of education Response to Education: Applied Knowledge and Verbal Understanding GOALS Goals Addressed This Visit's Progress LTG 12 visits Patient will report <=3/10 pain in R thumb with activity, Patient will demo R wrist/thumb AROM WFL for IADLs, Patient will demo R wrist/thumb strength WFL for IADLs, Patient will demo improved functional use of Right upper extremity as evidenced by Quick Dash score<= 35 to be able to perform work tasks, and Patient will perform HEP MOD I Pt goal (pt-stated) Get my hand back to normal STG 4-6 visits Patient will report <=6/10 pain in R thumb with activity, Patient will demo R wrist AROM improved by 5* for increased ease of opening drawers Patient will demo improved functional use of Right upper extremity as evidenced by Quick Dash score<= 50 to be able to wipe the counters, and Patient will perform initial HEP MOD I PLAN POC Development/Review: Initial Evaluation; Participants: Patient Skilled Therapy Plan Required: YES- Reasons for Rehab and Medical Necessity -- Reduce Need for Assist with Functional Activity/ADL's/Mobility and Return to Work Planned Therapy Interventions: Therapeutic Activity (64791), Therapeutic Exercise (60189), Ultrasound (31048), and Manual Therapy (66966) Planned Therapy Duration: 12 visits BILLING (This Date of Service) OT Therapeutic Procedures Time Entry Therapeutic Exercise Time Entry: 16 OT Modalities Time Entry Ultrasound Time Entry: 8 OT Evaluation Time Entry OT Evaluation (Moderate) Time Entry: 36 TOTAL TREATMENT TIME: 60 Minutes Evaluation Medium Complexity Justification ::: A history of present problem with 1 - 2 personal factors and/or co-morbidities that impact the plan of care and Moderate time effort (typically 30 minutes) spent [id number] with the patient and/or family Documentation completed by Mike Padron, OT [facility] [address] [place] [phone] Dept: [phone] Dept PATIENT NAME: Kusum Mckeon : 1970 Certification: This is to certify that the above named patient, who is under my care, requires skilled Therapy services as described in the above treatment plan. I further certify that the services outlined in this plan are skilled and medically necessary. I have reviewed this plan for rehabilitation services, and I recommend that these services continue to meet the above stated goals and plan. SIGNATURE: DATE Jason Badillo MD Referring provider documented in this encounter Plan of Treatment Upcoming Encounters Date Type Department Care Team (Late st Contact Info) Description 08/21/2025 10:30 AM EST Treatment [facility] [address] [place] [phone] Emily Ariza, MALLOY 08/24/2025 11:00 AM EST Treatment [facility] [address] [place] [phone] Emily Ariza, MALLOY 08/28/2025 10:45 AM EST Treatment [facility] [address] [place] [phone] Emily Ariza, MALLOY 09/04/2025 10:15 AM EST Treatment [facility] [address] [place] [phone] Mike Padron, OT 09/04/2025 11:00 AM EST Office Visit [facility] [place] [address] [phone] Jason Badillo MD [address] [place] [address] 10/24/2025 8:00 AM EST Nutrition Bariatric Surgery [facility] [place] [address] [phone] [phone] documented as of this encounter Goals Goal Patient Goal Type Associated Problems Recent Progress Patient-Stated? Author Pt goal General Yes Mike Padron, OT Note: Get my hand back to normal STG 4-6 visits General No Mike Padron, OT Note: Patient will report <=6/10 pain in R thumb with activity, Patient will demo R wrist AROM improved by 5* for increased ease of opening drawers Patient will demo improved functional use of Right upper extremity as evidenced by Quick Dash score <= 50 to be able to wipe the counters, and Patient will perform initial HEP MOD I LTG 12 visits General No Mike Padron, OT Note: Patient will report <=3/10 pain in R thumb with activity, Patient will demo R wrist/thumb AROM WFL for IADLs, Patient will demo R wrist/thumb strength WFL for IADLs, Patient will demo improved functional use of Right upper extremity as evidenced by Quick Dash score <= 35 to be able to perform work tasks, and Patient will perform HEP MOD I documented as of this encounter Visit Diagnoses Diagnosis Arthritis of carpometacarpal (CMC) joint of right thumb- Primary Post-operative state Other postprocedural status documented in this encounter Orders Outpatient Referral Count Last Ordered Date Fir st Ordered Date AMB REFERRAL TO OCCUPATIONAL THERAPY 08/05 documented in this encounter Care Teams Gate Clerk Relationship Specialty Start Date End Date Jimi Newell MD [address] [place] [address] PCP - General Internal Medicine 03/26/21 documented as of this encounter
--- NOTE | 2025-08-17 10:29 | A.OFFVIS_ITS ---
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: No Information Interpreted: non-clinical & clinical Screedman/Laborer: Screedman/Laborer Present (Deborah Zuñiga GLORIA) Accompanied by: Self / Same As Patient Allergies acetaminophen (From Hycomine Compound) Adverse Reaction (Verified 08/17/25 10:36) Rash acyclovir Adverse Reaction (Verified 08/17/25 10:36) blister chlorpheniramine (From Hycomine Compound) Adverse Reaction (Verified 08/17/25 10:36) Rash erythromycin base (From Ilosone) Adverse Reaction (Verified 08/17/25 10:36) rash hydrocodone (From Hycomine Compound) Adverse Reaction (Verified 08/17/25 10:36) Rash Penicillins Adverse Reaction (Verified 08/17/25 10:36) rash phenylephrine (From Hycomine Compound) Adverse Reaction (Verified 08/17/25 10:36) Rash promethazine (From Phenergan) Adverse Reaction (Verified 08/17/25 10:36) rash mysteclin Adverse Reaction (Uncoded 08/17/25 10:36) rash Post menopausal: Yes HPI Comments Details: Presenting for Mirena IUD removal. The patient had Mirena IUD inserted 3 years ago for AUB. The patient has been complaining of hot flashes occasionally Last Co testing in 07/29 was negative Last mammogram at [place] was negative according to the patient, no records available 07/06/2025 [facility] Medical History HTN (hypertension) CPAP (continuous positive airway pressure) dependence Personal history of nicotine dependence Presence of Mirena IUD Hemorrhoids Fistula, anal Meningitis Tooth abscess Pilonidal cyst Surgical History History of left hip replacement Family History Mother High blood pressure Hyperthyroidism Fibromyalgia Kidney cancer, primary, with metastasis from kidney to other site Father No problems noted. 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 Current occupational exposures/hazards: No Cognitive needs: No Hearing needs: No Vision needs: No Review of Systems Const All systems reviewed & are unremarkable except as noted in HPI and below Physical Exam Vital Signs: Last Vital Signs BP 110/66 08/17/25 10:30 BMI result Body Mass Index 34.6 General: Yes no CVA tenderness External Female Exam: normal external appearance and normal appearance of the urethra Speculum Exam - Vagina: normal appearance of the vagina, normal palpation, no lesions and no masses Speculum Exam - Cervix: normal appearance of the cervix, normal palpation, no lesions, no masses, nontender and Other cervical findings present (IUD string in place) Bimanual exam- vagina & uterus: normal bimanual exam, normal palpation, uterine size normal, normal palpation, uterine shape normal, No Cervical tenderness present and non-tender Bimanual Exam- Adnexa, other: normal adnexae Back/Spine/Pelvis Back: no CVA tenderness Office Procedures IUD Insert/Removal Details Details: Counseling/Consent: After discussing with the patient the risks of the procedure including bleeding, infection, scar tissue formation, , possible injury to blood vessels or nerves, chronic arm pain, blood transfusion, and irregular unpredictable bleeding Alternative options were discussed with the patient including but not limited: Do nothing. The patient signed the consent and agreed with the plan; all questions answered. Preop dx: Requesting IUD removal Op: IUD removal Post op dx: same EBL= 10 cc Procedure: The patient was put in the dorsal lithotomy position a speculum was inserted in the vagina the IUD thread identified. Using a Raine clamp the thread was grasped and the IUD pulled out with no complications. The patient tolerated the procedure well and was advised to use a different method for contraception. Discharge instructions: Instructions were given to the pt to call if temp>100.4, abdominal pain heavy vaginal bleeding, n/v occur. The patient verbalized understanding and all questions answered. This note was generated with a voice recognition program. Some errors may have been overlooked during the review of this note. Sometimes these errors may affect the content or meaning of a given sentence. [id number] Removal Procedure code (CPT) selection complete Assessment & Plan Assessment & Plan (1) Encounter for IUD removal: Code(s): Z30.432 - Encounter for removal of intrauterine contraceptive device Category: Medical Plan: Discussed with the patient her FSH level in the menopausal range, recommended IUD removal. Mirena IUD removed, see procedure note. Instructions given the patient to call if bleeding occurs. All questions answered, the patient verbalized understanding Coding Level of Care Code Est Pt Level 3 (61707) Procedure Only Diagnoses Encounter for IUD removal Z30.432 CPT Codes Details - CPT: 42377-PCC Removal ([id number])
[2025-08-17 10:30] VITALS: BP 110/66; BMI 34.6
--- OUTSIDE RECORDS SUMMARY | 2025-08-17 12:10 | XMS_ITS | Clinical Summary ---
Author Organization [facility] Address [address] [place] [address] Phone Care Team Providers Care Home Health Billing Specialist Name Role Phone Jimi Newell MD Primary Care Provider [phone] Allergies Active Allergy Reactions Criticality Noted Date [...] Reaction(s): stomach pain Promethazine Hcl 01/15/2006 Medications CELECOXIB ORAL Take by mouth daily. Active levonorgestreL (MIRENA) 21 mcg/24 hr (8 yrs) 52 mg IUD 1 Each by Intrauterine route Once. 01/22/20 22 027 Active omeprazole (PriLOSEC) [address] capsule Take 1 capsule (40 mg total) by mouth 1 (one) time each day. Do not crush or chew. 30 each 11 11/18/19 25 026 Active amLODIPine (NORVASC) 5 mg tablet Take 1 tablet (5 mg total) by mouth 1 (one) time each day. 90 tablet 1 02/21/20 25 Active oxyCODONE (OXY-IR) 5 mg immediate release capsule Take 1 capsule (5 mg total) by mouth every 6 (six) hours if needed for severe pain. Max Daily Amount: 20 mg 28 capsule 07/25/20 Active ondansetron (ZOFRAN) 4 mg tablet TAKE 1 TABLET (4 MG TOTAL) BY MOUTH EVERY 8 HOURS IF NEEDED FOR NAUSEA OR VOMITING FOR UP TO 7 DAYS. 9 tablet 2 08/15/20 Active acetaminophen (TYLENOL) 500 mg tablet 1 Tab 2 times daily. 01/29/20 12 025 Discontinued aspirin-acetam inophen-caffei ne (EXCEDRIN MIGRAINE) 250-250-65 mg per tablet Take 1 Tablet by mouth every 6 hours as needed for Pain 025 Discontinued ondansetron (ZOFRAN) 4 mg tablet Take 1 tablet (4 mg total) by mouth every 8 (eight) hours if needed for nausea or vomiting. 025 Discontinued tirzepatide, weight loss, (Zepbound) 12.5 mg/0.5 mL injection Inject 0.5 mL (12.5 mg total) under the skin every 7 (seven) days for 28 days. 2 mL 07/18/20 ibuprofen (ADVIL,MOTRIN) 600 mg tablet Take 1 tablet (600 mg total) by mouth every 6 (six) hours if needed for mild pain for up to 10 days. 30 tablet 07/25/20 25 025 acetaminophen (TYLENOL) 500 mg tablet Take 2 tablets (1,000 mg total) by mouth every 6 (six) hours if needed for mild pain for up to 10 days. 30 tablet 07/25/20 Active Problems Problem Noted Date Diagnosed Date Arthritis of carpometacarpal (CMC) joint of righ t thumb 06/20/2025 Class 2 severe obesity with serious comorbidity and body mass index (BMI) of 37.0 to 37.9 in adult 05/04/2025 Abnormal uterine bleeding (AUB) 01/19/2022 Overview (07/05/2024): Last Assessment & Plan: She will return for Mirena IUD [id number] 04/12/2013 Osteoarthritis of hip 01/29/2012 Overview (07/05/2024): L>R Pilonidal cyst 03/28/2008 Allergic rhinitis 02/06/2006 Encounters Date Type Department Care Team Description 08/16/2025 2:00 PM EST Evaluation [facility] Occup[facility] Therapy [address] [phone] Mike Padron, OT Arthritis of carpometacarpal (CMC) joint of right thumb (Primary Dx); Post-operative state 08/16/2025 Telephone Bariatric Surgery [facility] [address] [phone] Nikky Duarte MD 08/16/2025 Plan of Care Documentation [facility] [address] [phone] 08/08/2025 11:00 AM EST Office Visit Orthopedic Surgery [facility] [address] [phone] Jason Badillo MD Post-operative state (Primary Dx) 07/27/2025 Lab Requisition [facility] Main Lab [address] [place] [phone] Jason Badillo MD Unilateral primary osteoarthritis of first carpometacarpal joint, right hand 07/20/2025 Telephone Orthopedic [facility] 250 175 [facility] [address] [place] [address] Jason Badillo MD 07/18/2025 Telephone Orthopedic Surgery [facility] 160 175 [facility] [address] [place] [address] Catie Davis MA 07/18/2025 Telephone Bariatric Surgery [facility] [address] [phone] Nikky Duarte MD 06/27/2025 1:30 PM EDT Office Visit Bariatric [facility] [address] [address] Nikky Duarte MD Class 2 obesity due to excess calories with body mass index (BMI) of 35.0 to 35.9 in adult, unspecified whether serious comorbidity present (Primary Dx) 06/20/2025 9:00 AM EDT Office Visit Orthopedic [facility] [address] [phone] Jason Badillo MD Arthritis of carpometacarpal (CMC) joint of right thumb (Primary Dx) 06/19/2025 Telephone Bariatric Surgery [address] [address] Nikky Duarte MD 06/12/2025 9:00 AM EDT Office Visit Orthopedic Surgery [facility] [address] [phone] Litzy Cho PA Arthritis of carpometacarpal (CMC) joint of right thumb (Primary Dx) 06/01/2025 7:40 AM EDT - 06/01/2025 11:59 PM EDT Hospital Encounter Radiology Department - [address] [address] Encounter for screening mammogram for breast cancer Discharge Disposition: Home or Self Care 05/22/2025 Telephone Bariatric [address] [phone] Nikky Duarte MD 05/22/2025 Telephone Bariatric Surgery [address] [address] Nikky Duarte MD from Last 3 Months [...] ration; COMMENT: R 2nd - required surgeries Frzgmcf-rj-tff 04/12/2013 DX:Tdwgqlz-rd-ql o Snores GERD (gastroesophageal reflux disease) Arthritis [...] 0.3 Q uit: 06/05/2021 Smokeless Tobacco: Never Tobacco [...] 10:30 AM EST Treatment [facility] [address] [address] Emily Ariza COTA 08/24/2025 11:00 AM EST Treatment [facility] [address] [phone] Emily Ariza MALLOY 08/28/2025 10:45 AM EST Treatment [facility] [address] [address] Emily Ariza MALLOY 09/04/2025 10:15 AM EST Treatment [facility] [address] [phone] Mike Padron, OT 09/04/2025 11:00 AM EST Office Visit [facility]opedic [facility] [place] [address] [place] [phone] Jason Badillo MD [address] [place] [address] 10/24/2025 8:00 AM EST Nutrition Bariatric Surgery - [place] [address] [phone] Radha Mon, RD [address] [address] Health Maintenance Due Date Last Done Comments Hepatitis B Vaccines (1 of 3 - 19+ 3-dose series) 12/30/1990 Pneumococcal Vaccine: 50+ Years (1 of 1 - PCV) 12/30/2021 RSV Immunization Adult Patients (1 - Risk 50-74 years 1-dose series) 12/30/2021 HIV Screening 09/13/2022 Hepatitis C Screening 09/13/2022 Social Influencers of Health Screening 09/13/2022 Depression Screening 10/05/2024 COVID-19 Vaccine ( season) 2025 07/19/2024, 07/03/2023, 06/26/2022, Additional history exists Influenza Vaccine (#1) 2025 , 07/03/2023, 06/26/2022, Additional history exists Cervical Cancer Screening: HPV 01/13/2027 01/13/2022 Breast Cancer Screening 06/01/2027 06/01/20 25, 05/20/2024, 05/20/2024, Additional history exists Colorectal Cancer Screening: Colonoscopy 12/24/2027 12/23/2024 Cholesterol Screening (Lipid Panel) 11/18/2029 11/18/2024, 05/12/2024, 05/12/2024 DTaP,Tdap,and Td Vaccines (4 - Td or Tdap) 05/12/2034 05/12/2024, 04/19/2022, 05/18/2007 Zoster Vaccines Completed 12/13/2024, 07/19/2024 HIB Vaccines [...] on patient's age to complete this topic Goals Goal Patient Goal Type Associated Problems [...] and Patient will perform HEP MOD I Procedures Procedure Name Priority Date/Time Associated Diagnosis Comments XR FINGERS 2+ VIEWS RIGHT Routine 08/08/2025 11:00 AM EST Post-operative state TISSUE EXAM Routine 07/26/2025 Unilateral primary osteoarthritis of first carpometacarpal joint, right hand MG MAMMO DIGITAL SCREENING W MERLIN BILAT Routine 06/01/2025 8:00 AM EDT Encounter for screening mammogram for breast cancer COLONOSCOPY Routine 12/23/2024 2:44 PM EDT Colon cancer screening LIPID PANEL WITH REFLEX TO DIRECT LDL Routine 11/18/2024 9:17 AM EST High cholesterol HM HPV Routine 01/13/2022 from Last 3 Months or Most Recently Relevant to Health Maintenance Results * XR Fingers 2+ Views Right (08/08/2025 11:00 AM EST) Anatomical Region Laterality Modality Upper Extremities, Fingers Right Compu hamlet Radiography Narrative 08/08/2025 11:07 AM EST Three-view x-rays of the right thumb show postsurgical changes consistent with interval trapeziectomy, there is appropriate suspension of the first metacarpal. Soft tissue shadows show swelling consistent with previous surgery. Impression: Postsurgical changes consistent with trapeziectomy and suture suspensioplasty Jason Badillo MD IMG XR PROCEDURES Final Result * Tissue Exam (07/26/2025) Final Diagnosis Bone, right trapezium, trapeziectomy: Benign bone and articular cartilage with degenerative and remodeling changes. No significantly increased inflammation or malignancy identified. 08/01/2025 12:50 PM EDT [facility] at 1250 EDT Gross Description A. Hand, Right, trapezium bone: Received in formalin, labeled trapezium bone hand right , and consists of a 3.2 x 2.5 x 0.5 cm aggregate of elliott-naqvi irregular fragmented bone. The specimen is entirely submitted in 2 cassettes following decalcification. EM 07/30/25 (multiple) 08/01/2025 12:50 PM EDT [facility] Disclaimer The technical components of [place] [address] CLIA # [id number] 08/01/2025 12:50 PM EDT [facility] Tissue Structure of right hand / Unknown 07/26/2025 07/27/2025 8:21 AM EDT us Jason Badillo MD LAB PATHOLOGY ORDERABLES Final R esult [facility] [address] [place] [address], [place] [phone] * MG Mammo Digital Screening w Merlin bilat (06/01/2025 8:00 AM EDT) Anatomical Region Laterality Modality Breast Bilateral Mammography 06/01/2025 6:47 PM EDT Impressions 06/01/2025 6:50 PM EDT No mammographic evidence for malignancy. BI-RADS CATEGORY: 1 - NEGATIVE RECOMMENDATION: Screening bilateral mammogram is recommended in 1 year. Mammo Location: [facility], [address] [place] [address], [address], . -------- FINAL REPORT -------- Dictated By: Lillie Acosta Dictated Date: 06/01/2025 18:47 ET Assigned Physician: Lillie Acosta Reviewed and Electronically Signed By: Lillie Acosta Signed Date: 06/01/2025 18:50 ET Workstation ID: [id number] Transcribed By: Self Edit Transcribed Date: 06/01/2025 [...] is recommended in 1 year. Mammo Location: [facility], [address] [place] [address], [address], . -------- FINAL REPORT -------- Dictated By: Lillie Acosta Dictated Date: 06/01/2025 18:47 ET Assigned Physician: Lillie Acosta Reviewed and Electronically Signed By: Lillie Acosta Signed Date: 06/01/2025 18:50 ET Workstation ID: [id number] Transcribed By: Self Edit Transcribed Date: 06/01/2025 18:47 ET Brian Graham NP IMG BI PROCEDURES Final Resu lt * COLONOSCOPY Anesthesia - MAC; [facility] ENDOSCOPY (12/23/2024 2:44 PM EDT) [...] pathology results. Narrative 12/23/2024 2:[address] [facility] Patient Name: Carmen Chapman Procedure Date: 12/23/2024 2:22 PM Date of : 1970 Age: 53 Gender: Female Note Status: Finalized Attending MD: Rosa Nunez DO, [id number] Procedure Date No Time: 12/23/2024 Procedure: Colonoscopy [...] the physician, the nurse, the anesthesiologist, the metal patternmaker and the rv service technician in the pre-procedure area in the [...] diverticular bleeding. Procedure Code(s): --- Professional --- 66049, Colonoscopy, flexible; with removal of tumor(s), polyp(s), or other lesion(s) by snare technique 42052, 59, Colonoscopy, flexible; with biopsy, single or multiple Diagnosis Code(s): --- Professional --- Z12.11, Encounter for screening for malignant neoplasm of colon K64.9, Unspecified hemorrhoids D12.5, Benign neoplasm of sigmoid colon D12.3, Benign neoplasm of transverse colon (hepatic flexure or splenic flexure) CPT copyright 2020 [employer]. All rights reserved. The codes documented in this report are preliminary and upon waiter/waitress informal review may be revised to meet current compliance requirements. ROSA Nunez DO 12/23/2024 2:45:00 PM This report has been signed electronically.Rosa Nunez DO Number of Addenda: 0 Note Initiated On: 12/23/2024 2:22 PM Scope Withdrawal Time: 0 hours 7 minutes 44 seconds Scope In: 2:29:22 PM Scope Out: 2:42:51 PM Endoscopy Department at [facility] - [address] [place] [phone] Procedure Note Rosa Nunez DO - 12/23/2024 [facility] GI Patient Name: Carmen Chapman Procedure Date: 12/23/2024 2:22 PM Date of : 1970 Age: 53 Gender: Female Note Status: Finalized Attending MD: Rosa Nunez DO, [id number] Procedure Date No Time: 12/23/2024 Procedure: Colonoscopy [...] the physician, the nurse, the anesthesiologist, the metal patternmaker and thetechnician in the pre-procedure area in [...] diverticular bleeding. Procedure Code(s): --- Professional --- 09405, Colonoscopy, flexible; with removal of tumor(s), polyp(s), or other lesion(s) by snare technique 09970, 59, Colonoscopy, flexible; with biopsy,single or multiple Diagnosis Code(s): --- Professional --- Z12.11, Encounter for screening for malignantneoplasm of colon K64.9, Unspecified hemorrhoids D12.5, Benign neoplasm of sigmoid colon D12.3, Benign neoplasm of transverse colon (hepatic flexure or splenic flexure) CPT copyright 2020 [employer]. All rights reserved. The codes documented in this report are preliminary and upon waiter/waitress informal reviewmay be revised to meet current compliance requirements. ROSA Nunez DO 12/23/2024 2:45:00 PM This report has been signed electronically.Rosa Nunez DO Number of Addenda: 0 Note Initiated On: 12/23/2024 2:22 PM Scope Withdrawal Time: 0 hours 7 minutes 44 seconds Scope In: 2:29:22 PM Scope Out: 2:42:51 PM Endoscopy Department at [facility] - [address] [place] [phone] IMPRESSION: - Hemorrhoids found on perianal exam. [...] LAB CHEMISTRY METHOD 11/18/2024 12:[address] [facility] Triglycerides 60 0 - 150 mg/dL LAB CHEMISTRY METHOD 11/18/2024 12:[address] [facility] HDL 66 >=40 mg/dL LAB CHEMISTRY METHOD 11/18/2024 12:44 PM [facility] LDL Calculated 119(H) 0 - 100 mg/dL LAB CHEMISTRY METHOD 11/18/2024 12:44 PM [facility] VLDL Cholesterol Enrique 12 mg/dL LAB CHEMISTRY METHOD 11/18/2024 12:44 PM [facility] Non HDL Chol. (LDL+VLDL) 131 <145 mg/dL LAB CHEMISTRY METHOD 11/18/2024 12:44 PM [facility] Chol/HDL Ratio 3.0 0.0 - 4.4 LAB CHEMISTRY METHOD 11/18/2024 12:44 PM [facility] Blood Venous blood specimen / Unknown Venipuncture / Unknown 11/18/2024 9:17 AM EST 11/18/2024 9:17 AM EST Jimi Newell MD LAB BLOOD ORDERABLES Final Resu lt [facility] [address] [place] [address], [place] [phone] * Cervical Cancer Screening: HPV (01/13/2022) Pathologist [facility] Cervical Cancer Screening: HPV negative, abstracted Casandra Ji MD HEALTH MAINTENANCE Final Result from Last 3 Months or Most Recently Relevant to Health Maintenance [place] [id number] [employer] [place] Care Teams Home Health Billing Specialist Relationship Specialty Start Date End Date Jimi Newell MD [address] [place] [phone] PCP - General Internal Medicine 03/26/21
--- OUTSIDE RECORDS SUMMARY | 2025-08-17 12:10 | XMS_ITS | Encounter Summary ---
Author Organization [facility] Address [address] [place] [address] Care Team Providers Care [employer] Physical Education Teacher Name Role Phone Jimi Newell MD Primary Care Provider [phone] Encounter Details Date Type Department Care Team (Latest Contact Info) Description 07/27/2025 Lab Requisition [facility] Main Lab [address] [place] [phone] Jason Badillo MD 175 [place] [address] Unilateral primary osteoarthritis of first carpometacarpal joint, right hand Social History Tobacco Use Types Packs/Day Years [...] PM EDT documented as of this encounter Plan of Treatment Upcoming Encounters Date Type Department Care Team (Late st Contact Info) Description 08/21/2025 10:30 AM EST Treatment [facility] [address] [phone] Emily Ariza, MALLOY 08/24/2025 11:00 AM EST Treatment [facility] [address] [phone] Emily Ariza, MALLOY 08/28/2025 10:45 AM EST Treatment [facility] [address] [phone] Emily Ariza, MALLOY 09/04/2025 10:15 AM EST Treatment [facility] [address] [phone] Mike Padron, OT 09/04/2025 11:00 AM EST Office Visit [facility]opedic Surgery [facility] [place] [address] [place] [phone] Jason Badillo MD 175 [place] [address] 10/24/2025 8:00 AM EST Nutrition Bariatric Surgery - [place] [address] [phone] Radha Mon, RD [address] [phone] documented as of this encounter Procedures Procedure Name Priority Date/Time Associated Diagnosis Comments TISSUE EXAM Routine 07/26/2025 Unilateral primary osteoarthritis of first carpometacarpal joint, right hand documented in this encounter Results * Tissue Exam (07/26/2025) Final Diagnosis Bone, right trapezium, trapeziectomy: Benign bone and articular cartilage with degenerative and remodeling changes. No significantly increased inflammation or malignancy identified. 08/01/2025 12:50 PM EDT [facility] at 1250 EDT Gross Description A. Hand, Right, trapezium bone: Received in formalin, labeled trapezium bone hand right , and consists of a 3.2 x 2.5 x 0.5 cm aggregate of elliott-naqvi irregular fragmented bone. The specimen is entirely submitted in 2 cassettes following decalcification. EM 07/30/25 (multiple) 08/01/2025 12:[address] [facility] Disclaimer The technical components [place] [address] CLIA # [id number] 08/01/2025 12:[address] [facility] Tissue Structure of right hand / Unknown 07/26/2025 07/27/2025 8:21 AM EDT us Jason Badillo MD LAB PATHOLOGY ORDERABLES Final R esult [facility] [address] [place] [phone], documented in this encounter Visit Diagnoses Diagnosis Unilateral primary osteoarthritis of first carpometacarpal joint, right hand documented in this encounter Care Teams High [employer] Physical Education Teacher Relationship Specialty Start Date End Date Jimi Newell MD [address] [place] [phone] PCP - General Internal Medicine 03/26/21 documented as of this encounter
--- OUTSIDE RECORDS SUMMARY | 2025-08-17 12:10 | XMS_ITS | Patient Health Record ---
Author Organization [facility] Address [address] [place] [address] Care Team Providers Care Profile Saw Operator Name Role Phone Reece PIZANO, Nate Primary Care Provider Diane Amor Unavailable [phone] Allergies Allergen (clinical drug ingredient) Drug/Non Drug [...] Status Risk Notes Problem Acquired hallux valgus (29708273) Hallux valgus (acquired), right foot (M20.11) Active confirmed Plan Of Treatment Pending Test Test Name Order Date ,[id number] TENDON SHEATH/LIGAMENT 0 02/12/2021,[id number] TENDON SHEATH/LIGAMENT 0 06/12/2021 Insurance Providers Payer Name Payer Address Payer Phone Subscriber Number Group Number Insured Name Patient Relationship to Insured Coverage Start Date [facility]age End Date [facility] [address] [place] [address] [id number] Kusum Mckeon Self - patient is the insured Medical (General) History Medical History History ICD Code Arthritis Back,Hip,and Knee pain Broken bones Chicken pox Joint/ Bone implants/screws Surgical History Surgery Date(Month/Year) Hip Replacement 2012 Knee surgery 1986,1987,1988 [place] teeth extraction 1986 Severed tendon repair-right index finger 2008 Anal Fistula Surgery 2013 Ess[place] 2011
--- OUTSIDE RECORDS SUMMARY | 2025-08-17 12:10 | XMS_ITS | Clinical Summary ---
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
--- OUTSIDE RECORDS SUMMARY | 2025-08-17 12:10 | XMS_ITS | Encounter Summary ---
Author Organization [facility] Address [address] [place] [address] Care Team Providers Care Sciences Dean Name Role Phone Jimi Newell MD Primary Care Provider [phone] Reason for Visit * Reason Onset Date Comments Med Refill 08/16/2025 Encounter Details Date Type Department Care Team ([facility] st Contact Info) Description 08/16/2025 Telephone Bariatric Surgery - [address] [place] [address] Nikky Duarte MD [address] [place] [phone] Social History Tobacco Use Types Packs/Day [...] encounter Progress Notes * Lea Valle - 08/16/2025 4:21 PM EST Patient did well on Zepbound 12.5 mgs and would like a refill If appropriate, please send script for Zepbound 12.5 mgs to their pharmacy. The patient does have a follow up in 10/24/2025 documented in this encounter Plan of Treatment Upcoming Encounters Date Type Department Care Team (Late st Contact Info) Description 08/21/2025 10:30 AM EST Treatment [facility] [address] [place] [phone] Emily Ariza MALLOY 08/24/2025 11:00 AM EST Treatment [facility] [address] [place] [phone] Emily Ariza MALLOY 08/28/2025 10:45 AM EST Treatment [facility] [address] [place] [phone] Emily Ariza MALLOY 09/04/2025 10:15 AM EST Treatment [facility] [address] [place] [phone] Mike Padron, OT 09/04/2025 11:00 AM EST Office Visit Orthopedic Surgery - [place] [address] [place] [phone] Jason Badillo MD 175 [place] [address] 10/24/2025 8:00 AM EST Nutrition Bariatric Surgery - [place] [address] [phone] [phone] documented as of this encounter [...] on filedocumented in this encounter Care Teams Sciences Dean Relationship Specialty Start Date End Date Jimi Newell MD [address] [place] [phone] PCP - General Internal Medicine 03/26/21 documented as of this encounter
--- OUTSIDE RECORDS SUMMARY | 2025-08-17 12:10 | XMS_ITS | Encounter Summary ---
Author Organization [facility] Address [address] [place] [address] Care Team Providers Care Turbine Technician Name Role Phone Jimi Newell MD Primary Care Provider Encounter Details Date Type Department Care Team (Late st Contact Info) Description 08/16/2025 Plan of Care Documentation [facility] Occupational Therapy [address] [phone] Social History Tobacco Use Types Packs/Day Years [...] Notes * Mike Padron, OT - 08/16/2025 3:06 PM EST Images from the original note were not included. [facility] - Outpatient OCCUPATIONAL THERAPY EVALUATION Date: 08/16/2025 Visit Number: 1 Patient Name: Kusum Mckeon : 1970 Age: 54 y.o. Gender: female Diagnosis: ICD-10-CM ICD-9-CM 1. Arthritis of carpometacarpal (CMC) joint of right thumb M18.11 716.94 2. Post-operative state Z98.890 V45.89 Ambulatory referral to Occupational Therapy Date of Onset: 08/08/2025 Referring Provider: Jason Badillo MD Insurance: Payor: [employer] [place] ([employer]) / Plan: [facility] / Product Type: *No Product type* / Language: Speaks and understands Mohawk as preferred language with no educational interpreter required has a past medical history of Allergic rhinitis, cause unspecified (02/06/2006), Arthritis, Bursitis of hip, Ynzefys-qz-zlt (04/12/2013), GERD (gastroesophageal reflux disease), Snores, and Tendon laceration. has a past surgical history that includes Knee surgery; [place] tooth extraction; and Hip Arthroplasty (Left). 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 OBJECTIVE General Observations/Comments: Pt arrived wearing R [...] Strength L UE 5/5 throughout R sh/elbow /5 R forearm/wrist NT due to recent surgery 02/06: Normal - Full ROM and tolerates maximum resistance Palpation: Proximal portion of incision sensitive to touch Sensation: Pt denies tingling/numbness Other Assessments: QuickDASH - Disability of Arm, Shoulder, or Hand Rate your ability to do the following activities in the past week: Open a tight or new jar: 4 - Severe difficulty Do heavy spindle repairer (eg wash daniels, wash floors) : 3 [...] to Work Planned Therapy Interventions: Therapeutic Activity (61198), Therapeutic Exercise (75094), Ultrasound (45863), and Manual Therapy (90267) Planned Therapy Duration: 12 visits BILLING (This [...] Moderate time effort (typically 30 minutes) spent xljv-tu-[id number] with the patient and/or family Documentation completed by Mike Padron OT [facility] [address] [place] [phone] Dept: [phone] Dept PATIENT NAME: Kusum Mckeon : 1970 [...] 10:30 AM EST Treatment [facility] [address] [place] [phone] Emily Ariza COTA 08/24/2025 11:00 AM EST Treatment [facility] Occupational Therapy [address] [place] [phone] Emily Ariza, MALLOY 08/28/2025 10:45 AM EST Treatment [facility] [address] [phone] Emily Ariza, MALLOY 09/04/2025 10:15 AM EST Treatment [facility] Occupational Therapy [address] [phone] Mike Padron, OT 09/04/2025 11:00 AM EST Office Visit [facility] [place] [address] [place] [phone] Jason Badillo MD 175 [place] [address] 10/24/2025 8:00 AM EST Nutrition Bariatric Surgery - [place] [address] [phone] Radha Mon, RD [address] [phone] documented as of this encounter [...] on filedocumented in this encounter Care Teams Turbine Technician Relationship Specialty Start Date End Date Jimi Newell MD [address] [place] [phone] PCP - General Internal Medicine 03/26/21 documented as of this encounter
== END 2025-08-17 10:57 | disposition home or self-care (01) ==
LOC: HO.HWS 10:08
PROVIDERS: PCP Nurse Practitioner Family; Visit Provider Obstetrics & Gynecology
DX: Z30.432 Encounter for removal of intrauterine contraceptive device (principal)
CPT/HCPCS: 58301; 99213

== ENCOUNTER → 2025-08-17 10:08 | Outpatient (BNVA) | payer BC, SELFPAY | PROVIDERS: PCP Nurse Practitioner Family; Visit Provider Obstetrics & Gynecology | DX: Z30.432 Encounter for removal of intrauterine contraceptive device (principal) | CPT/HCPCS: 58301 ==

== ENCOUNTER 2025-09-27 08:05 | Outpatient (AMB) | payer BC, SELFPAY ==
--- OUTSIDE RECORDS SUMMARY | 2025-09-27 08:09 | XMS_ITS | Encounter Summary ---
Author Organization [facility] Prior to 08/05/2024 Address [address] [place] [address] Care Team Providers Care Motor Bus Driver Name Role Phone Pranav Zimmer MD Primary Care Provider Maria Eugenia Levar Ornelas MD Primary Care Provider Unavail able Blaire Sahni DO Primary Care Pro vider Unavailable Kar Valero DO Primary Care Provider Maria Eugenia Jimi Lisa MD Primary Care Provider [phone] Encounter Details Date Type Department Care Team Description 06/02/2013 Toy Assembly Supervisor Report Medical Records [address] [place] [address] Seferino Cooper MD Social History Tobacco Use [...] on filedocumented in this encounter Care Teams Motor Bus Driver Relationship Specialty Start Date End Date Pranav Zimmer MD PCP - General 04/08/11 07/25/14 Levar Leal MD PCP - General Internal Medicine 07/26/14 04/15/15 Blaire Sahni DO PCP - General Internal Medicine 04/16/15 03/21/21 Kar Valero DO PCP - General Internal Medicine 03/22/21 1 Jimi Newell MD [address] [place] [address] PCP - General Internal Medicine 03/26/21 documented as of this encounter
--- OUTSIDE RECORDS SUMMARY | 2025-09-27 08:09 | XMS_ITS | Encounter Summary ---
Author Organization [facility] Prior to 08/05/2024 Address [address] [place] [address] Care Team Providers Care Assistant Professor Of Surgery Name Role Phone Pranav Zimmer MD Primary Care Provider Maria Eugenia Levar Ornelas MD Primary Care Provider Unavail able Blaire Sahni DO Primary Care Pro vider Unavailable Kar Valero DO Primary Care Provider Maria Eugenia Jimi Lisa MD Primary Care Provider [phone] Reason for Visit * Reason Onset Date Comments Special Procedure 07/18/2013 Encounter Details Date Type Department Care Team Description 07/18/2013 Telephone Physiatry - [address] [address] Aram Castillo DO Special Procedure Social History Tobacco Use Types Packs/Day Years [...] encounter Miscellaneous Notes * Telephone Encounter - Marcia Brush M.A. - 07/18/2013 11:44 AM EDT Patient had left intraarticular hip injection 03/03/13 at [facility] please order or advise * Telephone Encounter - Faith Muro - 07/18/2013 11:37 AM EDT Patient looking to get a repeat injection like the one she had done back in February. Patient can be reached at [phone] to schedule. documented in this encounter Plan of Treatment Not on file documented as of this encounter Visit Diagnoses Not on filedocumented in this encounter Care Teams Assistant Professor Of Surgery Relationship Specialty Start Date End Date Pranav Zimmer MD PCP - General 04/08/11 07/25/14 Levar Leal MD PCP - General Internal Medicine 07/26/14 04/15/15 Blaire Sahni, DO PCP - General Internal Medicine 04/16/15 03/21/21 Kar Valero, PCP - General Internal Medicine 03/22/21 1 Jimi Newell MD [address] [place] [address] PCP - General Internal Medicine 03/26/21 documented as of this encounter
--- OUTSIDE RECORDS SUMMARY | 2025-09-27 08:09 | XMS_ITS | Encounter Summary ---
Author Organization [facility] Prior to 08/05/2024 Address [address] [place] [address] Care Team Providers Care Tunnel Miner Name Role Phone Jimi Newell MD Primary Care Provider [phone] Reason for Visit * Reason Onset Date Comments arthritis 08/15/2024 Encounter Details Date Type Department Care Team Description 08/15/2024 Telephone Adult Medicine [address] [phone] Jimi Newell MD [address] [place] [address] arthritis Social History Tobacco Use Types [...] on filedocumented in this encounter Care Teams Tunnel Miner Relationship Specialty Start Date End Date Jimi Newell MD [address] [place] [address] PCP - General Internal Medicine 03/26/21 documented as of this encounter
--- OUTSIDE RECORDS SUMMARY | 2025-09-27 08:09 | XMS_ITS | Encounter Summary ---
Author Organization [facility] Prior to 08/05/2024 Address [address] [facility] [place] [address] Care Team Providers Care Laboratory Aide Name Role Phone Jimi Newell MD Primary Care Provider [phone] Encounter Details Date Type Department Care Team Description 08/01/2024 Flour Mixer Helper Report Medical Records [address] [place] [address] Social History Tobacco Use Types Packs/Day Years [...] on filedocumented in this encounter Care Teams Laboratory Aide Relationship Specialty Start Date End Date Jimi Newell MD [address] [place], [place] [phone] PCP - General Internal Medicine 03/26/21 documented as of this encounter
--- OUTSIDE RECORDS SUMMARY | 2025-09-27 08:09 | XMS_ITS | Encounter Summary ---
Author Organization [facility] Prior to 08/05/2024 Address [address] [place] [address] Care Team Providers Care Almond Huller Name Role Phone Pranav Zimmer MD Primary Care Provider Maria Eugenia Levar Ornelas MD Primary Care Provider Unavail able Blaire Sahni DO Primary Care Pro vider Unavailable Kar Valero DO Primary Care Provider Maria Eugenia Jimi Lisa MD Primary Care Provider Encounter Details Date Type Department Care Team Description 06/25/2012 Decal Transferrer Report Medical Records [address] [place] [address] Rochelle Garcia MD Social History Tobacco Use [...] on filedocumented in this encounter Care Teams Almond Huller Relationship Specialty Start Date End Date Pranav Zimmer MD PCP - General 04/08/11 07/25/14 Levar Leal MD PCP - General Internal Medicine 07/26/14 04/15/15 Blaire Sahni DO PCP - General Internal Medicine 04/16/15 03/21/21 Kar Valero DO PCP - General Internal Medicine 03/22/21 1 Jimi Newell MD [address] [place] [address] PCP - General Internal Medicine 03/26/21 documented as of this encounter
--- OUTSIDE RECORDS SUMMARY | 2025-09-27 08:09 | XMS_ITS | Encounter Summary ---
Author Organization [facility] Prior to 08/05/2024 Address [address] [facility] [place] [address] Care Team Providers Care Methods Specialist Engineer Name Role Phone Jimi Newell MD Primary Care Provider Encounter Details Date Type Department Care Team Description 01/23/2022 Transfer Records Medical Records [address] [place] [address] Abstract, Provider Social History Tobacco Use Types [...] on filedocumented in this encounter Care Teams Methods Specialist Engineer Relationship Specialty Start Date End Date Jimi Newell MD [address] [place] [address] PCP - General Internal Medicine 03/26/21 documented as of this encounter
--- OUTSIDE RECORDS SUMMARY | 2025-09-27 08:09 | XMS_ITS | Encounter Summary ---
Author Organization [facility] Prior to 08/05/2024 Address [address] [facility] [place] [address] Care Team Providers Care Flue Gas Analyst Name Role Phone Jimi Newell MD Primary Care Provider Encounter Details Date Type Department Care Team Description 09/04/2022 Lay Brother Report Medical Records [address] [place] [address] Jensen Fenton MD Social History Tobacco Use [...] on filedocumented in this encounter Care Teams Flue Gas Analyst Relationship Specialty Start Date End Date Jimi Newell MD [address] [place] [address] PCP - General Internal Medicine 03/26/21 documented as of this encounter
--- OUTSIDE RECORDS SUMMARY | 2025-09-27 08:09 | XMS_ITS | Encounter Summary ---
Author Organization [facility] Prior to 08/05/2024 Address [address] [facility] [place] [address] Care Team Providers Care Locomotive Mechanic Apprentice Name Role Phone Jimi Newell MD Primary Care Provider [phone] Encounter Details Date Type Department Care Team Description 03/05/2023 Radiation Officer Report Medical Records [address] [place] [address] Jensen Fenton MD Social History Tobacco Use [...] on filedocumented in this encounter Care Teams Locomotive Mechanic Apprentice Relationship Specialty Start Date End Date Jimi Newell MD [address] [place] [address] PCP - General Internal Medicine 03/26/21 documented as of this encounter
--- OUTSIDE RECORDS SUMMARY | 2025-09-27 08:09 | XMS_ITS | Encounter Summary ---
Author Organization [facility] Prior to 08/05/2024 Address [address] [facility] [place] [address] Care Team Providers Care Supervisor Tower Name Role Phone Pranav Zimmer MD Primary Care Provider Maria Eugenia Levar Ornelas MD Primary Care Provider Unavail able Blaire Sahni DO Primary Care Pro vider Unavailable Kar Valero DO Primary Care Provider Maria Eugenia Jimi Lisa MD Primary Care Provider [phone] Encounter Details Date Type Department Care Team Description 06/23/2013 Foreign Exchange Position Clerk Report Medical Records [address] [place] [address] Seferino Cooper MD Social History Tobacco Use [...] on filedocumented in this encounter Care Teams Supervisor Tower Relationship Specialty Start Date End Date Pranav Zimmer MD PCP - General 04/08/11 07/25/14 Levar Leal MD PCP - General Internal Medicine 07/26/14 04/15/15 Blaire Sahni DO PCP - General Internal Medicine 04/16/15 03/21/21 Kar Valero DO PCP - General Internal Medicine 03/22/21 1 Jimi Newell MD [address] [place] [address] PCP - General Internal Medicine 03/26/21 documented as of this encounter
--- OUTSIDE RECORDS SUMMARY | 2025-09-27 08:09 | XMS_ITS | Encounter Summary ---
Author Organization [facility] Prior to 08/05/2024 Address [address] [facility] [place] [address] Care Team Providers Care Licensed Insurance Agent Name Role Phone Pranav Zimmer MD Primary Care Provider Maria Eugenia Levar Ornelas MD Primary Care Provider Unavail able Blaire Sahni DO Primary Care Pro vider Unavailable Kar Valero DO Primary Care Provider Maria Eugenia Jimi Lisa MD Primary Care Provider [phone] Encounter Details Date Type Department Care Team Description 08/03/2013 Release of Information Medical Records [address] [place] [id number] Abstract, Provider Social History Tobacco Use Types [...] on filedocumented in this encounter Care Teams Licensed Insurance Agent Relationship Specialty Start Date End Date Pranav Zimmer MD PCP - General 04/08/11 07/25/14 Levar Leal MD PCP - General Internal Medicine 07/26/14 04/15/15 Blaire Sahni DO PCP - General Internal Medicine 04/16/15 03/21/21 Kar Valero DO PCP - General Internal Medicine 03/22/21 1 Jimi Newell MD [address] [place] [address] PCP - General Internal Medicine 03/26/21 documented as of this encounter
--- OUTSIDE RECORDS SUMMARY | 2025-09-27 08:09 | XMS_ITS | Patient Health Record ---
Author [facility] Address [address] [facility] [place] [address] Care Team Providers Care Debridging Machine Operator Name Role Phone Reece PIZANO, Nate Primary Care Provider Diane Amor Unavailable [phone] Allergies Allergen (clinical drug ingredient) Drug/Non Drug [...] Status Risk Notes Problem Acquired hallux valgus (01067314) Hallux valgus (acquired), right foot (M20.11) Active confirmed Plan Of Treatment Pending Test Test Name Order Date ,[id number] TENDON SHEATH/LIGAMENT 0 02/12/2021,[id number] TENDON SHEATH/LIGAMENT 0 06/12/2021 Insurance Providers Payer Name Payer Address Payer Phone Subscriber Number Group Number Insured Name Patient Relationship to Insured Coverage Start Date Coverage End Date [facility] [address] [place] [address] [id number] Kusum Mckeon Self - patient is the insured Medical (General) History Medical History History ICD Code Arthritis Back,Hip,and Knee pain Broken bones Chicken pox Joint/ Bone implants/screws Surgical History Surgery Date(Month/Year) Hip Replacement 2012 Knee surgery 1986,1987,1988 [place] teeth extraction 1986 Severed tendon repair-right index finger 2008 Anal Fistula Surgery 2013 [place] 2011
--- OUTSIDE RECORDS SUMMARY | 2025-09-27 08:09 | XMS_ITS | Encounter Summary ---
Author Organization [facility] Prior to 08/05/2024 Address [address] [facility] [place] [address] Care Team Providers Care Crane Crew Supervisor Name Role Phone Pranav Zimmer MD Primary Care Provider Maria Eugenia Levar Ornelas MD Primary Care Provider Unavail able Blaire Sahni DO Primary Care Pro vider Unavailable Kar Valero DO Primary Care Provider Maria Eugenia Jimi Lisa MD Primary Care Provider [phone] Encounter Details Date Type Department Care Team Description 06/03/2012 Hospital Medical Records [address] [place] [address] Kurt Andres MD Social History Tobacco Use [...] on filedocumented in this encounter Care Teams Crane Crew Supervisor Relationship Specialty Start Date End Date Pranav Zimmer MD PCP - General 04/08/11 07/25/14 Levar Leal MD PCP - General Internal Medicine 07/26/14 04/15/15 [place] Colasacco, Blaire, DO PCP - General Internal Medicine 04/16/15 03/21/21 Kar Valero DO PCP - General Internal Medicine 03/22/21 1 Jimi Newell MD [address] [place] [address] PCP - General Internal Medicine 03/26/21 documented as of this encounter
--- OUTSIDE RECORDS SUMMARY | 2025-09-27 08:09 | XMS_ITS | Encounter Summary ---
Author Organization [facility] Prior to 08/05/2024 Address [address] [facility] [place] [address] Care Team Providers Care Benefits Manager Name Role Phone Blaire Sahni DO Primary Care Pro vider Unavailable Kar Valero DO Primary Care Provider Maria Eugenia Jimi Lisa MD Primary Care Provider [phone] Encounter Details Date Type Department Care Team Description 02/18/2021 Microbiology Analyst Report Medical Records [address] [place] [address] Jensen Fenton MD Social History Tobacco Use [...] on filedocumented in this encounter Care Teams Benefits Manager Relationship Specialty Start Date End Date Blaire Sahni DO PCP - General Internal Medicine 04/16/15 03/21/21 Kar Valero DO PCP - General Internal Medicine 03/22/21 1 Jimi Newell MD [address] [place] [address] PCP - General Internal Medicine 03/26/21 documented as of this encounter
--- OUTSIDE RECORDS SUMMARY | 2025-09-27 08:09 | XMS_ITS | Encounter Summary ---
Author Organization [facility] Prior to 08/05/2024 Address [address] [place] [address] Care Team Providers Care Dock Superintendent Name Role Phone Pranav Zimmer MD Primary Care Provider Maria Eugenia vaEmil Juares MD Primary Care Provider Unav ailable Levar Leal MD Primary Care Provider Unavail able Blaire Sahni DO Primary Care Pro vider Unavailable Kar Valero DO Primary Care Provider Maria Eugenia Jimi Lisa MD Primary Care Provider [phone] Encounter Details Date Type Department Care Team Description 04/13/2010 Night Triage Doc Medical Records [address] [place] [address] Abstract, Provider Social History Tobacco Use Types [...] on filedocumented in this encounter Care Teams Dock Superintendent Relationship Specialty Start Date End Date Pranav Zimmer MD PCP - General 04/08/11 07/25/14 Emil Soliman MD PCP - General 12/16/1998 04/07/11 Levar Leal MD PCP - General Internal Medicine 07/26/14 04/15/15 Blaire Sahni, DO PCP - General Internal Medicine 04/16/15 03/21/21 Kar Valero DO PCP - General Internal Medicine 03/22/21 1 Jimi Newell MD [address] [place] [address] PCP - General Internal Medicine 03/26/21 documented as of this encounter
--- OUTSIDE RECORDS SUMMARY | 2025-09-27 08:09 | XMS_ITS | Encounter Summary ---
Author Organization [facility] Prior to 08/05/2024 Address [address] [place] [address] Care Team Providers Care Press Tender Smoke Signal Name Role Phone Jimi Newell MD Primary Care Provider [phone] Reason for Visit * Reason Onset Date Comments Prior Authorization 09/30/2022 MRI pelvis Encounter Details Date Type Department Care Team Description 09/30/2022 Telephone Adult Medicine [address] [address] Seefrino Cooper MD Prior Authorization (MRI pelvis ) Social History Tobacco Use Types Packs/Day [...] Miscellaneous Notes * Telephone Encounter - [place] lEizalde Presley - 09/30/2022 1:44 PM EST [employer] auth # [id number] Valid -10/30/22 [place] Order and notes faxed to [facility]. They will contact patient to schedule appt. Notificationletter sent documented in this encounter Plan of Treatment Not on file documented as of this encounter Visit Diagnoses Not on filedocumented in this encounter Care Teams Press Tender Smoke Signal Relationship Specialty Start Date End Date Jimi Newell MD [address] [place] [address] PCP - General Internal Medicine 03/26/21 documented as of this encounter
--- OUTSIDE RECORDS SUMMARY | 2025-09-27 08:09 | XMS_ITS | Encounter Summary ---
Author Organization [facility] Prior to 08/05/2024 Address [address] [facility] [place] [address] Care Team Providers Care Coding Director Name Role Phone Jimi Newell MD Primary Care Provider [phone] Encounter Details Date Type Department Care Team Description 03/06/2022 Assigner Report Medical Records [address] [place] [address] Jensen Fenton MD Social History Tobacco Use [...] suspected to have Coronavirus/COVID-19? No / Unsure 03/06/2022 3:52 PM EDT documented as of this encounter Plan of Treatment Not on file documented as of this encounter Visit Diagnoses Not on filedocumented in this encounter Care Teams Coding Director Relationship Specialty Start Date End Date Jimi Newell MD [address] [place] [address] PCP - General Internal Medicine 03/26/21 documented as of this encounter
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
[2025-09-27 08:14] VITALS: BP 104/60; PULSE 80; RESP 16; O2SAT 99; BMI 31.9
== END 2025-09-27 09:16 | disposition home or self-care (01) ==
LOC: HO.HMCC 08:06
PROVIDERS: PCP Nurse Practitioner Family; Visit Provider Nurse Practitioner Family
DX: R31.29 Other microscopic hematuria (principal); E66.9 Obesity, unspecified; I10 Essential (primary) hypertension

== ENCOUNTER → 2025-09-27 08:05 | Outpatient (BNVA) | payer BC, SELFPAY | PROVIDERS: PCP Nurse Practitioner Family; Visit Provider Nurse Practitioner Family | DX: R31.29 Other microscopic hematuria (principal); E66.9 Obesity, unspecified; I10 Essential (primary) hypertension; Z13.31 Encounter for screening for depression; Z87.891 Personal history of nicotine dependence | CPT/HCPCS: 96127 ==